=== PATIENT | male | born 1940 | race Caucasian/White ===

== ENCOUNTER 2024-03-14 11:03 | Inpatient (IN) | payer OTHER, MEDICARE, SELFPAY ==
[2024-03-14] VITALS (9 sets, daily range): BP systolic 144–164; BP diastolic 72–84; PULSE 58–78; RESP 16–22; TEMP 36.5–36.9; O2SAT 93–98; BMI 29.5
--- NOTE | ~2024-03-14 | XR_ITS ---
CLINICAL HISTORY: cough, dyspnea Single view of the chest. COMPARISON: None FINDINGS: Borderline cardiomegaly. No consolidation. Mild bronchial wall thickening. No pleural effusion or pneumothorax. Degenerative changes of the bilateral shoulders. [id number] spondylosis. No acute fracture identified. IMPRESSION: 1. No consolidation. 2. Mild bronchial wall thickening. This document has been electronically signed by: David Thrasher MD on 03/14/2024 13:16:43
--- NOTE | ~2024-03-14 | CT_ITS ---
CLINICAL HISTORY: new onset SHIRA CT abdomen and pelvis without IV contrast. COMPARISON: None FINDINGS: Minimal atelectasis along posterior left lower lobe. Aortic annular calcifications. Mitral annular calcifications. Hepatic steatosis. Noncontrast appearance of the liver, pancreas and adrenal glands are unremarkable. No right-sided hydronephrosis. Right renal cystic l lesions measuring up to 1.4 cm. No right renal or ureteral calculus. No left-sided hydronephrosis. Left renal cystic lesion measuring 1.6 cm. Nonobstructing 3 mm left renal calculus. No left hydroureter. No left ureteral calculus. Diminutive appendix. No bowel obstruction. No mesenteric or retroperitoneal lymphadenopathy. Moderate aortoiliac atherosclerotic vascular calcifications. Urinary bladder is unremarkable given degree of distention. Prostate is enlarged measuring up to 5.1 cm. Prostate calcifications present. Small fat containing umbilical hernia. Advanced multilevel spondylosis. No acute fracture identified. IMPRESSION: 1. No evidence of renal obstruction. No hydronephrosis or hydroureter bilaterally. No ureteral calculus. 2. Nonobstructing 3 mm left renal calculus. Bilateral renal cystic lesions measuring up to 1.6 cm on the left. 3. Prostatomegaly. This document has been electronically signed by: David Thrsaher MD on 03/14/2024 16:59:36
--- NOTE | 2024-03-14 11:20 | PC.NURSE ---
Pt. states that he does not want to change into hospital gown.
--- NOTE | 2024-03-14 12:19 | ED.GENADULT ---
HPI - General Adult General Chief complaint: General Medical Stated complaint: SOB COUGH Time Seen by Provider: 03/14/24 11:51 Source: patient, EMS and old records reviewed Mode of arrival: EMS Limitations: no limitations History of Present Illness ED Provider: FRANSISCA MARQUEZ narrative: 83 yo male with PMH of CVA - dyshpagia, aphasia, dysarthria, BPH, HTN, afib on eliquis [facility]/o URI symptoms x 10 days that will not get better. He has a runny nose, tired, productive cough. His home health aide was sick. He denies n/v, chest pain, sob. He has some slight diarrhea. No fevers that he is aware of. He thought he would get better but he hasn't. complaint: URI Onset (ago): day(s) (10) Location: head and chest Radiation: non-radiation Severity: mild Relieving factors: none Exacerbating factors: movement Associated symptoms: cough and malaise Treatments prior to arrival: none Related Data Allergies Allergy/AdvReac Type Severity Reaction Status Date / Time amlodipine Allergy Unknown Verified 03/14/24 12:37 diltiazem Allergy Unknown Verified 03/14/24 12:37 Penicillins Allergy Unknown Verified 03/14/24 12:36 spironolactone Allergy Unknown Verified 03/14/24 12:36 Review of Systems Review of Systems: Constitutional : No Fever, No Chills ENT/Mouth : No Hoarseness, No sore throat, No Rhinorrhea Eyes: No Redness, No Discharge, No Vision Changes Cardiovascular : No Chest Pain, positive SOB, No Edema Respiratory : positive Cough, pos Sputum, positive Wheezing, Gastrointestinal : No Nausea, No Vomiting, pos Diarrhea, No abdominal Pain Genitourinary : No Dysuria, No Hematuria Musculoskeletal : No joint pain, No Myalgias Skin : No rash Neuro : No Weakness, No Numbness, No Headache All other systems reviewed and are negative PMFSH Past Medical History Attestation statement: The following information was validated with the patient. Source: old records reviewed Medical History BPH (benign prostatic hyperplasia) Afib HTN (hypertension) Acute CVA (cerebrovascular accident) Social History Social History (Updated 03/14/24 @ 12:33 by Rain Kwok DO) Patient Tobacco Use Status: Former Tobacco user Smoked in Last 30 Days: No Use of substances other than those prescribed or required for medical reasons: No Advance Directives: No Advance Directives Information Provided: No Do you have a plan to hurt others: No Plan Physical Exam ED Vital Signs: Vital Signs - 24 hr 03/14/24 11:15 03/14/24 11:19 03/14/24 12:37 Temperature 98.1 F 98.1 F Pulse Rate 60 60 67 Respiratory Rate 20 20 18 Blood Pressure 157/79 H 157/79 H Pulse Oximetry 96 96 Oxygen Delivery Method Nasal Cannula Nasal Cannula 03/14/24 13:50 03/14/24 17:36 Temperature 98.4 F 97.7 F Pulse Rate 63 58 Respiratory Rate 18 16 Blood Pressure 144/73 H 159/82 H Pulse Oximetry 95 95 Oxygen Delivery Method Room Air Room Air BMI result Body Mass Index 29.5 Appearance: Alert. Oriented X3. No acute distress. Eyes: Pupils equal, round and reactive to light. ENT: Pharynx normal. Neck: Normal inspection. Neck supple. CVS: Normal heart rate and rhythm. Pulses normal. Respiratory: No respiratory distress. Breath sounds coarse and rhonchi throughout Abdomen: Soft and nontender. Skin: Skin warm and dry. Normal skin color. Normal skin turgor. Extremities: No lower extremity edema. No calf ttp Neuro: Oriented X 3. No motor deficit. No sensory deficit. mild aphasia, dysarthria, appears to have a hard time with swallowing - chronic Course Course Course Narrative: worsening Cr after fluids baseline 1.2 that we can find UA and CT scan ordered for post obstructive pathology Reevaluation(s) Reevaluation #1: at this time positive UTI infection suspected 439pm will dose with IV ceftriaxone Medications Administered Discontinued Medications Generic Name Dose Route Start Last Admin Trade Name Freq PRN Reason Stop Dose Admin Albuterol/Ipratropium 3 ml 03/14/24 12:31 03/14/24 12:37 Albuterol/Iprat 2.5/0.5mg 3 Ml Ampul.Neb INHALE 03/14/24 12:32 3 ml ONCE ONE Administration Ceftriaxone Sodium 1 gm 03/14/24 16:39 03/14/24 17:25 Ceftriaxone Sodium 1 Gm Vial IVPUSH 03/14/24 16:40 1 gm ONCE ONE Administration Magnesium Sulfate 2 gm in 50 mls @ 25 mls/hr 03/14/24 13:08 03/14/24 16:03 Magnesium Sulfate/H2o IV 03/14/24 15:07 Infused ONCE ONE Infusion Sodium Chloride 500 mls @ 500 mls/hr 03/14/24 13:08 03/14/24 15:33 Ns IV 03/14/24 14:07 Infused .Q1H ONE Infusion Potassium Chloride 20 meq 03/14/24 13:08 03/14/24 13:56 Potassium Chloride Er 20 Meq Tab.Er.Prt PO 03/14/24 13:09 20 meq ONCE ONE Administration Medical Decision Making Medical Decision Making MDM Narrative: 83 yo male with PMH of CVA - dyshpagia, aphasia, dysarthria, BPH, HTN, afib on eliquis here with c/o cough, uri symptoms, sputum that he is having a hard time clearing his sputum will obtain labs, cultures, viral panel, CXR, offer duoneb to help with airway and secretions. He could have viral syndrome, URI. Differential Diagnosis Differential Diagnoses: The differential diagnosis associated with the presentation includes URI, viral syndrome, Admission/Observation Consideration of admission/observation: Escalation of care including admission/observation considered worsening Cr in setting of post obstructive, + UTI increase in Cr will admit for observation repleted K and magnesium Consult Healthcare Provider Management of the patient was discussed with: Hospitalist (will admit) Lab Data [facility] Lab Attestation statement: I reviewed the patient's lab results. basic labs last Cr was 1.2 in 202103/14/24 12:35 03/14/24 15:13 Labs: Lab Results 03/14/24 03/14/24 03/14/24 Range/Units 12:35 12:51 15:13 WBC 9.6 (4.8-10.8) X10*3/uL RBC 4.49 L (4.60-5.80) X10*6/uL Hgb 14.5 (14.0-18.0) g/dl Hct 42.8 (42.0-52.0) % MCV 95.3 (80.0-98.0) fL MCH 32.3 (27.0-33.0) pg MCHC 33.9 (31.0-36.0) g/dl RDW 13.4 (11.0-16.0) % Plt Count 219 (160-400) X10*3/uL MPV 10.0 (9.4-12.4) fL Immature Gran % (Auto) 0.4 (0.0-0.4) % Neut % (Auto) 63.5 (45-73) % Lymph % (Auto) 24.1 (20-40) % [place] % (Auto) 9.4 (2-11) % Eos % (Auto) 2.0 (0-4) % Baso % (Auto) 0.6 (0-2) % Lymph # (Auto) 2.3 (1.2-4.9) X10*3/uL [place] # (Auto) 0.9 (0.1-1.2) X10*3/uL Eos # (Auto) 0.2 (0.0-0.4) X10*3/uL Baso # (Auto) 0.1 (0.0-0.2) X10*3/uL Abs Immat Gran (auto) 0.04 H (0.00-0.03) X10*3/uL Absolute Neuts (auto) 6.1 (2.0-8.3) x10*3/uL Absolute Nucleated RBC 0.000 (0.0-0.012) X10*3/uL Nucleated RBC % (auto) 0.0 (0.0-0.2) /100WBC Sodium 145 (135-145) mmol/L Potassium 3.1 L (3.3-5.1) mmol/L Chloride 109 H (96-108) mmol/L Carbon Dioxide 27 (22-29) mmol/L Anion Gap 12 (12-20) BUN 28 H (9-16) mg/dL Creatinine 1.56 H 1.73 H (0.5-1.4) mg/dL Estim Creat Clear Calc 41.3 37.2 Estimated GFR 43 38 Random Glucose 108 (60-115) mg/dL Lactic Acid 1.2 (0.5-2.0) mmol/L Calcium 8.5 (8.4-10.2) mg/dL Magnesium 1.5 L (1.6-2.6) mg/dL Total Bilirubin 0.6 (0.0-1.0) mg/dL AST 52 H (5-37) U/L ALT 35 (0-40) U/L Alkaline Phosphatase 80 (39-117) U/L Total Creatine Kinase 203 H (38-174) U/L B-Natriuretic Peptide 215 H (<100) pg/mL Total Protein 6.3 L (6.5-8.0) g/dL Albumin 3.4 L (3.5-5.0) g/dL Urine Color Urine Appearance Urine pH (5.0-9.0) Ur Specific [place] (1.005-1.025) Urine Protein (Neg-Trace) mg/dL Urine Glucose (UA) (Negative) mg/dL Urine Ketones (Negative) mg/dL Urine Blood (Negative) Urine Nitrite (Negative) Ur Leukocyte Esterase (Negative) Urine RBC (0-2) /HPF Urine WBC (0-5) /HPF Ur Squamous Epith Cells (0-2) /HPF Urine Bacteria (None Seen) Hyaline Casts (0-2) /LPF Influenza Type A (PCR) NEGATIVE (Negative) Influenza Type B (PCR) NEGATIVE (Negative) RSV RNA Qual (PCR) NEGATIVE (Negative) SARS-CoV-2 RNA (RT-PCR) NEGATIVE (Negative) 03/14/24 Range/Units 16:17 WBC (4.8-10.8) X10*3/uL RBC (4.60-5.80) X10*6/uL Hgb (14.0-18.0) g/dl Hct (42.0-52.0) % MCV (80.0-98.0) fL MCH (27.0-33.0) pg MCHC (31.0-36.0) g/dl RDW (11.0-16.0) % Plt Count (160-400) X10*3/uL MPV (9.4-12.4) fL Immature Gran % (Auto) (0.0-0.4) % Neut % (Auto) (45-73) % Lymph % (Auto) (20-40) % [place] % (Auto) (2-11) % Eos % (Auto) (0-4) % Baso % (Auto) (0-2) % Lymph # (Auto) (1.2-4.9) X10*3/uL [place] # (Auto) (0.1-1.2) X10*3/uL Eos # (Auto) (0.0-0.4) X10*3/uL Baso # (Auto) (0.0-0.2) X10*3/uL Abs Immat Gran (auto) (0.00-0.03) X10*3/uL Absolute Neuts (auto) (2.0-8.3) x10*3/uL Absolute Nucleated RBC (0.0-0.012) X10*3/uL Nucleated RBC % (auto) (0.0-0.2) /100WBC Sodium (135-145) mmol/L Potassium (3.3-5.1) mmol/L Chloride (96-108) mmol/L Carbon Dioxide (22-29) mmol/L Anion Gap (12-20) BUN (9-16) mg/dL Creatinine (0.5-1.4) mg/dL Estim Creat Clear Calc Estimated GFR Random Glucose (60-115) mg/dL Lactic Acid (0.5-2.0) mmol/L Calcium (8.4-10.2) mg/dL Magnesium (1.6-2.6) mg/dL Total Bilirubin (0.0-1.0) mg/dL AST (5-37) U/L ALT (0-40) U/L Alkaline Phosphatase (39-117) U/L Total Creatine Kinase (38-174) U/L B-Natriuretic Peptide (<100) pg/mL Total Protein (6.5-8.0) g/dL Albumin (3.5-5.0) g/dL Urine Color Yellow Urine Appearance Clear Urine pH 6.5 (5.0-9.0) Ur Specific [place] 1.015 (1.005-1.025) Urine Protein 30 (1+) H (Neg-Trace) mg/dL Urine Glucose (UA) Negative (Negative) mg/dL Urine Ketones Trace (Negative) mg/dL Urine Blood Trace H (Negative) Urine Nitrite Negative (Negative) Ur Leukocyte Esterase Moderate (2+) H (Negative) Urine RBC 0-2 (0-2) /HPF Urine WBC >50 H (0-5) /HPF Ur Squamous Epith Cells 0-2 (0-2) /HPF Urine Bacteria 1+ (None Seen) Hyaline Casts 0-2 (0-2) /LPF Influenza Type A (PCR) (Negative) Influenza Type B (PCR) (Negative) RSV RNA Qual (PCR) (Negative) SARS-CoV-2 RNA (RT-PCR) (Negative) Independent Interpretation I performed an independent interpretation of an: EKG, Plain X-Ray (no pneumonia) and CT Scan (enleraged bladder ) Interpretation: Rate: 58 Rhythm: sinus bradycardia with PVCs [place]: left Normal P waves. Normal CINTHYA. LBBB ST T wave : no JIL, inverted t waves I and aVL qTC: 475 prior studies: no prior The study has been interpreted contemporaneously by me. . Radiology Impression Discussion of test interpretation with radiology: I have reviewed the radiologist's reading. Independent Historian Clinical information obtained from an independent historian. 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
--- NOTE | 2024-03-14 12:35 | PC.NURSE ---
[facility] [place] [place]
[2024-03-14] MEDS: Albuterol/Iprat 2.5/0.5MG 3 ML AMPUL.NEB INHALE (12:37)
[2024-03-14 12:40] LABS: MANUAL DIFF FLAG NO
[2024-03-14 12:42] LABS: Basophils Absolute Auto 0.1 X10*3/uL (0.0-0.2); Basophils Percent Auto 0.6 % (0-2); Eosinophils Absolute Auto 0.2 X10*3/uL (0.0-0.4); Hematocrit 42.8 % (42.0-52.0); Hemoglobin 14.5 g/dl (14.0-18.0); Imm Gran Abs Auto 0.04 X10*3/uL (0.00-0.03); Imm Gran Pct Auto 0.4 % (0.0-0.4); Lymphocytes Absolute Auto 2.3 X10*3/uL (1.2-4.9); Lymphocytes Percent Auto 24.1 % (20-40); Mean Corpuscular HGB Conc 33.9 g/dl (31.0-36.0); Mean Corpuscular Hemoglobin 32.3 pg (27.0-33.0); Mean Corpuscular Volume 95.3 fL (80.0-98.0); Monocytes Absolute Auto 0.9 X10*3/uL (0.1-1.2); Monocytes Percent Auto 9.4 % (2-11); Neutrophils Absolute Auto 6.1 x10*3/uL (2.0-8.3); Neutrophils Percent Auto 63.5 % (45-73); Platelet Count 219 X10*3/uL (160-400); Red Blood Count 4.49 X10*6/uL (4.60-5.80); Red Cell Distribution Width 13.4 % (11.0-16.0); White Blood Count 9.6 X10*3/uL (4.8-10.8)
[2024-03-14 12:58] LABS: Alanine Aminotransferase 35 U/L (0-40); Albumin Level 3.4 g/dL (3.5-5.0); Alkaline Phosphatase 80 U/L (39-117); Anion Gap 12 (12-20); Aspartate Amino Transferase 52 U/L (5-37); Bilirubin Total 0.6 mg/dL (0.0-1.0); Blood Urea Nitrogen 28 mg/dL (9-16); Calcium 8.5 mg/dL (8.4-10.2); Carbon Dioxide 27 mmol/L (22-29); Chloride 109 mmol/L (96-108); Creatinine Clr Calc Pharmacy 41.3; Estimated Glomerular Filt Rate 43; Glucose Random 108 mg/dL (60-115); Magnesium 1.5 mg/dL (1.6-2.6); Potassium 3.1 mmol/L (3.3-5.1); Sodium 145 mmol/L (135-145); Total Protein 6.3 g/dL (6.5-8.0)
[2024-03-14 13:14] LABS: Lactic Acid 1.2 mmol/L (0.5-2.0)
[2024-03-14 13:19] LABS: Influenza A PCR NEGATIVE (Negative); Influenza B PCR NEGATIVE (Negative); Resp Syncy Virus RNA Qual PCR NEGATIVE (Negative); SARS COV2 PCR INHOUSE NEGATIVE (Negative)
[2024-03-14] MEDS: Magnesium Sulfate/H2O 2 GM/50 ML PIGGYBACK IV (13:56)
[2024-03-14] MEDS: Potassium Chloride ER 20 MEQ TAB.ER.PRT PO (13:56)
[2024-03-14] MEDS: 0.9 % Sodium Chloride 500 ML IV (13:56)
[2024-03-14 15:40] LABS: Creatinine Clr Calc Pharmacy 37.2; Estimated Glomerular Filt Rate 38
[2024-03-14 16:33] LABS: Appearance Urine Clear; Color Urine Yellow; Glucose Urine UA Negative (Negative); Leukocyte Esterase Urine Moderate (2+) (Negative); Nitrite Urine Negative (Negative); PH 6.5 (5.0-9.0); Specific Gravity - Urine 1.015 (1.005-1.025); UMIC TRIGGER UACC YES; Urine Blood Trace (Negative); Urine Ketones Trace mg/dL (Negative); Urine Protein 30 (1+) mg/dL (Neg-Trace)
[2024-03-14 16:36] LABS: Bacteria Urine 1+ (None Seen); Hyaline Casts Urine 0-2 /LPF (0-2); RBC Urine 0-2 /HPF (0-2); Squamous Epithelial Cell Urine 0-2 /HPF (0-2); UACC Culture Trigger YES; WBC Urine >50 /HPF (0-5)
--- NOTE | 2024-03-14 17:15 | ECG_ITS ---
Test Reason : HYPOMAGNESEMIA Blood Pressure : / mmHG Vent. Rate : 058 BPM Atrial Rate : 058 BPM P-R Int : 200 ms QRS Dur : 172 ms QT Int : 484 ms P-R-T Axes : 051 -47 132 degrees QTc Int : 475 ms Sinus bradycardia with marked sinus arrhythmia with occasional Premature ventricular complexes Left axis deviation Left bundle branch block Abnormal ECG No previous ECGs available Referred By: Rain Kwok Electronically Signed By:JUAN JOSEPH MD
[2024-03-14] MEDS: cefTRIAXone sodium 1 GM VIAL IVPUSH (17:25)
[2024-03-14 17:39] LABS: B Type Natriuretic Peptide 215 pg/mL (<100)
--- NOTE | 2024-03-14 18:33 | PHA.MEDREC ---
Pharmacy Consult ? Medication Reconciliation Pharmacy has completed the medication reconciliation, utilized list sent over from [facility].
--- NOTE | 2024-03-14 18:39 | P.HPHOSP_ITS ---
History of Present Illness Date of Service: 03/14/24 Chief Complaint: URI symptoms 3-year-old gentleman with past medical history of CVA with residual dysphagia, aphasia and dysarthria, BPH, hypertension, AFib on [facility] [place] [facility] due to symptoms of cough runny nose of greater than 10 days duration, he denies associated fever chills, no shortness of breath, no chest pain, no nausea, vomiting, abdominal pain, no diarrhea, no urinary symptoms of urgency, no frequency, no headache, no dizziness his home health aide was sick but since his symptoms were not improving he presented to emergency room, in ED patient noted to have hypokalemia, potassium 3.1, magnesium 1.5, creatinine 1.56 that got worsened with IV fluid to 1.73, chest x- ray showed mild bronchial wall thickening, RSV, influenza and COVID negative, due to persistent URI symptoms with acute kidney injury patient is being admitted to [facility] for further treatment and evaluation. Lives alone at home has [employer] services, ambulate without assisted device. Review of Systems 2 Review of Systems: General no headache no dizziness no fever chills. CVS no chest pain, no palpitation. Respiratory loose cough, no associated shortness of breath Gastrointestinal no nausea no vomiting, no abdominal pain no urgency, no frequency Musculoskeletal no pain All other system reviewed and are negative [facility] Medical History BPH (benign prostatic hyperplasia) Afib HTN (hypertension) Acute CVA (cerebrovascular accident) Social History (Updated 03/14/24 @ 12:33 by Rain Kwok DO) Household Members: None Housing: House Do you presently have visiting nurse or other home services: Yes ([facility] services and has [place] services for transportation) Patient Tobacco Use Status: Former Tobacco user Tobacco use type: Cigarette Cigarette Packs Per Day: 1 Cigarettes Per Day: 20.0 Smoked in Last 30 Days: No e-Cigarette/Vaping Use: Never Used Patient Interested in Nicotine Replacement: No Patient Given Instructions on How to Stop Smoking: No Second Hand Smoke Exposure: No Use of substances other than those prescribed or required for medical reasons: No Currently Displaying Signs/Symptoms of Drug Intoxication Withdrawal: No Any prior treatment program specific to substance use: No Have you been hit, kicked, punched, or otherwise hurt by someone within the past year? If so, by whom?: No Do you feel safe in your current relationship?: Yes Is there a partner from a previous relationship who is making you feel unsafe now?: No Are you made to feel afraid or neglected: No Advance Directives: No Advance Directives Information Provided: No Advance Directives on File: No Do you have a plan to hurt others: No Plan Recently lost weight without trying: No Eating poorly because of decreased appetite: No Nutrition Risks: On aspiration precautions Poor oral hygiene: No Meds Allergies Allergy/AdvReac Type Severity Reaction Status Date / Time amlodipine Allergy Unknown Verified 03/14/24 12:37 diltiazem Allergy Unknown Verified 03/14/24 12:37 Penicillins Allergy Unknown Verified 03/14/24 12:36 spironolactone Allergy Unknown Verified 03/14/24 12:36 Active Medications: Current Medications Acetaminophen (Acetaminophen 325 Mg Tablet) 650 mg PO Q6H PRN PRN Reason: Pain, Mild 1-3,fever,headache Calcium Carbonate (Calcium Carbonate 750 Mg Tab.Chew) 750 mg PO Q4H PRN PRN Reason: Heartburn Magnesium Hydroxide (Milk Of Magnesia 30 Ml Oral.Susp) 30 ml PO DAILY PRN PRN Reason: Constipation Melatonin (Melatonin 3 Mg Tablet) 6 mg PO BEDTIME PRN PRN Reason: Insomnia Ondansetron HCl (Ondansetron Hcl 4 Mg/2 Ml Vial) 4 mg IVPUSH Q8H PRN PRN Reason: Nausea and Vomiting Sodium Chloride (0.9 % Sodium Chloride Flush 3 Ml Syringe) 3 ml IVFLUSH [facility] Medications ?Medication ?Instructions ?Recorded ?Confirmed ?Last Taken ?Type allopurinol 100 mg tablet 100 mg PO DAILY 03/14/24 03/14/24 Unknown History apixaban 2.5 mg tablet (Eliquis) 2.5 mg PO BID 03/14/24 03/14/24 Unknown History chondroitin sulfate A sodium 400 400 mg PO DAILY 03/14/24 03/14/24 Unknown History mg capsule doxazosin 2 mg tablet 6 mg PO BID 03/14/24 03/14/24 Unknown History duloxetine 20 mg capsule,delayed 20 mg PO DAILY 03/14/24 03/14/24 Unknown History release finasteride 1 mg tablet 1 mg PO DAILY 03/14/24 03/14/24 Unknown History hydrochlorothiazide 12.5 mg capsule 12.5 mg PO DAILY 03/14/24 03/14/24 Unknown History multivitamin 1 tab PO DAILY 03/14/24 03/14/24 Unknown History simethicone 80 mg chewable tablet 80 mg PO DAILY 03/14/24 03/14/24 Unknown History thiamine HCl (vitamin B1) 100 mg 100 mg PO DAILY 03/14/24 03/14/24 Unknown History tablet vitamin E 268 mg (400 unit) capsule 268 mg PO DAILY 03/14/24 03/14/24 Unknown History Physical Exam 2 Vital Signs and Narrative: Vital Signs: Last Vital Signs Temp 97.7 F 03/14/24 17:36 Pulse 58 03/14/24 17:36 Resp 16 03/14/24 17:36 BP 159/82 H 03/14/24 17:36 Pulse Ox 95 03/14/24 17:36 O2 Del Method Room Air 03/14/24 17:36 Oxygen Flow Rate 2 03/14/24 11:15 BMI result Body Mass Index 29.5 Const: Other: General resting comfortably in no acute distress. Neck no JVD. CVS regular rate rhythm, Respiratory lungs clear to auscultation, no respiratory distress, no wheeze, no rhonchi. Gastrointestinal abdomen soft, non tender, bowel sounds audible, no guarding , no rigidity. Extremities no edema. Neuro dysarthria Skin no rash Psych appropriate affect Results Labs 03/14/24 12:35 03/15/24 05:18 Labs: Laboratory Results - last 24 hr 03/14/24 03/14/24 03/14/24 12:35 12:51 15:13 MCV 95.3 MCH 32.3 MCHC 33.9 RDW 13.4 Plt Count 219 MPV 10.0 Immature Gran % (Auto) 0.4 Neut % (Auto) 63.5 Lymph % (Auto) 24.1 [place] % (Auto) 9.4 Eos % (Auto) 2.0 Baso % (Auto) 0.6 Lymph # (Auto) 2.3 [place] # (Auto) 0.9 Eos # (Auto) 0.2 Baso # (Auto) 0.1 Abs Immat Gran (auto) 0.04 H Absolute Neuts (auto) 6.1 Absolute Nucleated RBC 0.000 Nucleated RBC % (auto) 0.0 Anion Gap 12 Estim Creat Clear Calc 41.3 37.2 Estimated GFR 43 38 Random Glucose 108 Lactic Acid 1.2 Calcium 8.5 Magnesium 1.5 L Total Bilirubin 0.6 AST 52 H ALT 35 Alkaline Phosphatase 80 Total Creatine Kinase 203 H B-Natriuretic Peptide 215 H Total Protein 6.3 L Albumin 3.4 L Urine Color Urine Appearance Urine pH Ur Specific [place] Urine Protein Urine Glucose (UA) Urine Ketones Urine Blood Urine Nitrite Ur Leukocyte Esterase Urine RBC Urine WBC Ur Squamous Epith Cells Urine Bacteria Hyaline Casts Influenza Type A (PCR) NEGATIVE Influenza Type B (PCR) NEGATIVE RSV RNA Qual (PCR) NEGATIVE SARS-CoV-2 RNA (RT-PCR) NEGATIVE 03/14/24 16:17 MCV MCH MCHC RDW Plt Count MPV Immature Gran % (Auto) Neut % (Auto) Lymph % (Auto) [place] % (Auto) Eos % (Auto) Baso % (Auto) Lymph # (Auto) [place] # (Auto) Eos # (Auto) Baso # (Auto) Abs Immat Gran (auto) Absolute Neuts (auto) Absolute Nucleated RBC Nucleated RBC % (auto) Anion Gap Estim Creat Clear Calc Estimated GFR Random Glucose Lactic Acid Calcium Magnesium Total Bilirubin AST ALT Alkaline Phosphatase Total Creatine Kinase B-Natriuretic Peptide Total Protein Albumin Urine Color Yellow Urine Appearance Clear Urine pH 6.5 Ur Specific [place] 1.015 Urine Protein 30 (1+) H Urine Glucose (UA) Negative Urine Ketones Trace Urine Blood Trace H Urine Nitrite Negative Ur Leukocyte Esterase Moderate (2+) H Urine RBC 0-2 Urine WBC >50 H Ur Squamous Epith Cells 0-2 Urine Bacteria 1+ Hyaline Casts 0-2 Influenza Type A (PCR) Influenza Type B (PCR) RSV RNA Qual (PCR) SARS-CoV-2 RNA (RT-PCR) Assessment and Plan (1) Acute UTI: Status: Acute (2) SHIRA (acute kidney injury): Status: Acute (3) Acute bronchitis: Qualifiers: Bronchitis organism: unspecified organism Qualified Code(s): J20.9 - Acute bronchitis, unspecified Status: Acute (4) Hypomagnesemia: Status: Acute (5) Acute hypokalemia: Status: Acute Plan 83 yo male with PMH of CVA - dyshpagia, aphasia, dysarthria, BPH, HTN, afib on eliquis here with c/o cough, uri symptoms, difficulty clear phlegm of greater than 10 days duration diagnosed to have hypokalemia, hypomagnesemia and SHIRA and possible UTI. Acute bronchitis/ URI Afebrile, normal WBC count, chest x-ray showed mild bronchial wall thickening Will obtain respiratory viral pathogen Supportive care with cough medications/analgesics Speech therapy eval question aspiration Acute kidney injury Worsening creatinine despite IV hydration, will hold hydrochlorothiazide CT abdomen and pelvis showed no obstruction, showed prostatomegaly Will obtain baseline labs Acute UTI treat with IV ceftriaxone follow urine and blood culture. Acute Hypo magnesemia Will replete and follow labs Acute hypokalemia likely due to hydrochlorothiazide, will replete follow labs and hold hydrochlorothiazide. Hypertension follow BP, hydrochlorothiazide on hold as above History of CVA with residual dysarthria and dysphagia persistent cough question related to dysphagia will obtain speech therapy evaluation. PAF EKG showed left bundle branch block sinus bradycardia with occasional PVCs Continue Eliquis not on rate control medication BPH continue doxazosin DVT prophylaxis with Eliquis Full code In my clinical judgment patient requires 2 night inpatient hospitalization for treatment of SHRIA and electrolyte abnormalities requiring close electrolyte monitoring and treatment of UTI/URI and dysphagia. Quality Stroke Does the patient have a stroke diagnosis?: No VTE Prior VTE?: No VTE Risk Level:: Medical - moderate - high VTE Device Contraindication: N/A - Device Ordered VTE Drug Contraindication: N/A - Med Ordered
[2024-03-14] MEDS: Doxazosin Mesylate 2 MG TABLET 6 MG PO (21:01)
[2024-03-14] MEDS: Apixaban 2.5 MG TABLET PO (21:01)
--- NOTE | 2024-03-14 21:07 | PC.NURSE ---
pt repositioned out of bed, completed by change, medicated per may, pt takes medication in apple sauces, pt able to communicated his needs.
[2024-03-15] VITALS (7 sets, daily range): BP systolic 113–170; BP diastolic 72–82; PULSE 51–158; RESP 16–20; TEMP 36.3–37; O2SAT 93–96
--- NOTE | 2024-03-15 | ECG_ITS ---
Test Reason : tachycardia Blood Pressure : / mmHG Vent. Rate : 154 BPM Atrial Rate : 000 BPM P-R Int : 000 ms QRS Dur : 150 ms QT Int : 342 ms P-R-T Axes : 000 100 -56 degrees QTc Int : 547 ms Wide QRS tachycardia Possible Supraventricular tachycardia with aberrancy Rightward axis Non-specific intra-ventricular conduction block Abnormal ECG When compared with ECG of 14-MAR-2024 17:27, Wide QRS tachycardia has replaced Sinus rhythm Vent. rate has increased BY 96 BPM Referred By: Donnell Shearer Electronically Signed By:JUAN JOSEPH MD
[2024-03-15] MEDS: 0.9 % Sodium Chloride Flush 3 ML SYRINGE IVFLUSH ×4 (03:17→21:53)
[2024-03-15 06:21] LABS: Anion Gap 11 (12-20); Blood Urea Nitrogen 29 mg/dL (9-16); Calcium 8.5 mg/dL (8.4-10.2); Carbon Dioxide 27 mmol/L (22-29); Chloride 109 mmol/L (96-108); Creatinine Clr Calc Pharmacy 46.1; Estimated Glomerular Filt Rate 48; Glucose Random 94 mg/dL (60-115); Sodium 144 mmol/L (135-145)
[2024-03-15] MEDS: Doxazosin Mesylate 2 MG TABLET 6 MG PO ×2 (08:05→21:52)
[2024-03-15] MEDS: Potassium Chloride Packet 20 MEQ PACKET 40 MEQ PO (08:05)
[2024-03-15] MEDS: DULoxetine HCl 20 MG CAPSULE.DR PO (08:06)
[2024-03-15] MEDS: Apixaban 2.5 MG TABLET PO ×2 (08:06→21:53)
[2024-03-15] MEDS: allopurinoL 100 MG TABLET PO (08:06)
--- NOTE | 2024-03-15 08:28 | PC.NURSE ---
Patient refused camera in room,encouraged to call for help,bed alarm on ,call jean inmignon alaniz
[2024-03-15] MEDS: Acetaminophen 325 MG TABLET 650 MG PO (08:30)
[2024-03-15 10:13] LABS: Adenovirus PCR Not Detected (Not Detect.); Bordetella parapertussis PCR Not Detected (Not Detect.); Bordetella pertussis PCR Not Detected (Not Detect.); Chlamydia pneumoniae PCR Not Detected (Not Detect.); Coronavirus 229E PCR Not Detected (Not Detect.); Coronavirus HKU1 PCR Not Detected (Not Detect.); Coronavirus NL63 PCR Not Detected (Not Detect.); Coronavirus OC43 PCR Detected (Not Detect.); Human metapneumovirus PCR Not Detected (Not Detect.); Influenza A PCR Not Detected (Not Detect.); Influenza B PCR Not Detected (Not Detect.); Mycoplasma pneumoniae PCR Not Detected (Not Detect.); Parainfluenza 1 PCR Not Detected (Not Detect.); Parainfluenza 2 PCR Not Detected (Not Detect.); Parainfluenza 3 PCR Not Detected (Not Detect.); Parainfluenza 4 PCR Not Detected (Not Detect.); RSV PCR Not Detected (Not Detect.); Rhino/Enterovirus PCR Not Detected (Not Detect.)
[2024-03-15 10:28] LABS: SARS-CoV-2 PCR Not Detected (Not Detect.)
--- NOTE | 2024-03-15 11:55 | PC.NURSE ---
Shepherd d/c DTV#1 at 1800,MAURICE [place]amanca aware,patient tolerated it well
--- NOTE | 2024-03-15 13:31 | MHC.CM.PN ---
CM ATTEMPTED TO MEET WITH PT WHO WAS OFF UNIT CM TO REVISIT
--- NOTE | 2024-03-15 14:05 | PC.NURSE ---
Patient c/o feeling dizzy while sitting in the chair,assisted back to bed,BP 167/75 pulse 65,sat 96% on RA ,Dr. Agustin notified
--- NOTE | 2024-03-15 14:06 | MHC.SL.SWA ---
Speech Pathologist Impression: Risk of Aspiration Due to: Neurological Condition Dysphasia Diet Status: Liquid Consistency and Strategies for Safe Swallow: Liquid Intake Recommendation: Thin Liquid Intake Strategies: Small Sips Solid Food Consistency: Dietary Recommendations: Chopped/Advanced (NDD3) Additional Modifications to Solid Foods: Oral Medication Intake: Whole with Liquid Please contact the pharmacy regarding appropriate crushable or liquid drug formulations that are available whenever modified delivery is recommended. Compensatory Strategies and Precautions to be Taken for Safe Swallow: Sitting Upright (90 deg) Small Bites and Sips Alternate Liquids/Solids Rate of Ingestion Change Oral Check Supervision While Eating and Drinking for Safe Swallow: Intermittent Supervision Foods to Avoid: Swallowing Recommended Treatments: Compens. Strategy Educat. Recommendation for Speech: Inpatient Speech Therapy Comment: DYNAMITE SHOOTER recommend continue Chopped/Advanced Solids (NDD3) and Thin Liquids. Medications Whole with Liquids. Intermittent Supervision. DYNAMITE SHOOTER to f/u x1. Timeline to reassess: PRN Diabetes Education Coordinator Clinican/Clinical Fellow: No Supervisory Statement: I have reviewed and agree with the student/clinical fellow's documentation: N/A Speech Language Pathologist: Leonardo Stearns M.A., CCC-DYNAMITE SHOOTER
--- NOTE | 2024-03-15 14:37 | P.PNIM_ITS ---
Subjective Subjective Date of Service: 03/15/24 Interval History: [place] dizzy while sitting on chair, denies urinary symptoms of urgency or frequency, wishes Shepherd catheter to be discontinued Tolerating diet, no worsening cough no nausea vomiting abdominal pain or diarrhea. No acute events overnight. Review of Systems All other system reviewed and are negative Physical Exam 2 Vital Signs: Vital Signs: Last Vital Signs Temp 98.4 F 03/15/24 13:55 Pulse 65 03/15/24 13:55 Resp 20 03/15/24 13:55 BP 167/75 H 03/15/24 13:55 Pulse Ox 96 03/15/24 13:55 O2 Del Method Room Air 03/15/24 13:55 Oxygen Flow Rate 2 03/14/24 11:15 BMI result Body Mass Index 30.0 Const: Other: General resting comfortably in no acute distress. Neck no JVD. CVS regular rate rhythm, Respiratory lungs clear to auscultation, no respiratory distress, no wheeze, no rhonchi. Gastrointestinal abdomen soft, non tender, bowel sounds audible, no guarding , no rigidity. Extremities no edema. Neuro dysarthria at baseline Skin no rash Psych appropriate affect Objective Data Active Medications Acetaminophen (Acetaminophen 325 Mg Tablet) 650 mg PO Q6H PRN PRN Reason: Pain, Mild 1-3,fever,headache Last Admin: 03/15/24 08:30 Dose: 650 mg Documented By: DUKE Allopurinol (Allopurinol 100 Mg Tablet) 100 mg PO DAILY [facility] Last Admin: 03/15/24 08:06 Dose: 100 mg Documented By: DUKE Apixaban (Apixaban 2.5 Mg Tablet) 2.5 mg PO BID [facility] Last Admin: 03/15/24 08:06 Dose: 2.5 mg Documented By: DUKE Calcium Carbonate (Calcium Carbonate 750 Mg Tab.Chew) 750 mg PO Q4H PRN PRN Reason: Heartburn Doxazosin Mesylate (Doxazosin Mesylate 2 Mg Tablet) 6 mg PO BID [facility]; Protocol Last Admin: 03/15/24 08:05 Dose: 6 mg Documented By: DUKE Duloxetine HCl (Duloxetine Hcl 20 Mg Meron.) 20 mg PO DAILY [facility] Last Admin: 03/15/24 08:06 Dose: 20 mg Documented By: DUKE Guaifenesin/Dextromethorphan (Guaifenesin Dm 200/20/10 Ml 10 Ml Syrup) 10 ml PO Q6H PRN PRN Reason: Cough Magnesium Hydroxide (Milk Of Magnesia 30 Ml Oral.Susp) 30 ml PO DAILY PRN PRN Reason: Constipation Melatonin (Melatonin 3 Mg Tablet) 6 mg PO BEDTIME PRN PRN Reason: Insomnia Non-Formulary Medication (Finasteride) 1 mg PO DAILY [facility] Ondansetron HCl (Ondansetron Hcl 4 Mg/2 Ml Vial) 4 mg IVPUSH Q8H PRN PRN Reason: Nausea and Vomiting Simethicone (Simethicone 80 Mg Tab.Chew) 80 mg PO DAILY [facility] Last Admin: 03/15/24 08:18 Dose: Not Given Documented By: DUKE Non-Admin Reason: Patient Refused Sodium Chloride (0.9 % Sodium Chloride Flush 3 Ml Syringe) 3 ml IVFLUSH QSHIFT [facility] Last Admin: 03/15/24 08:09 Dose: 3 ml Documented By: DUKE Labs 03/14/24 12:35 03/15/24 05:18 Labs: Laboratory Results - last 24 hr 03/14/24 03/14/24 03/14/24 12:35 15:13 16:17 Anion Gap Estim Creat Clear Calc 37.2 Estimated GFR 38 Random Glucose Calcium Magnesium Total Creatine Kinase 203 H B-Natriuretic Peptide 215 H Urine Color Yellow Urine Appearance Clear Urine pH 6.5 Ur Specific [place] 1.015 Urine Protein 30 (1+) H Urine Glucose (UA) Negative Urine Ketones Trace Urine Blood Trace H Urine Nitrite Negative Ur Leukocyte Esterase Moderate (2+) H Urine RBC 0-2 Urine WBC >50 H Ur Squamous Epith Cells 0-2 Urine Bacteria 1+ Hyaline Casts 0-2 Respiratory Panel [place] Adenovirus (Rapid PCR) B.pert (TEM-PCR) B.parapertussis DNA PCR C. pneumoniae DNA (PCR) Coronavirus OC43 (PCR) Coronavirus HKU1 (PCR) Coronavirus 229E (PCR) Coronavirus NL63 (PCR) Human Metapneumovir PCR Influenza A (RT-PCR) Influenza B (RT-PCR) M. pneumoniae (PCR) Parainfluenza 1 (PCR) Parainfluenza 2 (PCR) Parainfluenza 3 (PCR) Parainfluenza 4 (PCR) RSV (PCR) Entero/Rhino (PCR) SARS-CoV-2 RNA (RT-PCR) 03/14/24 03/15/24 03/15/24 22:22 05:18 08:14 Anion Gap 11 L Estim Creat Clear Calc 46.1 Estimated GFR 48 Random Glucose 94 Calcium 8.5 Magnesium 2.0 Total Creatine Kinase B-Natriuretic Peptide Urine Color Urine Appearance Urine pH Ur Specific [place] Urine Protein Urine Glucose (UA) Urine Ketones Urine Blood Urine Nitrite Ur Leukocyte Esterase Urine RBC Urine WBC Ur Squamous Epith Cells Urine Bacteria Hyaline Casts Respiratory Panel [place] Cancelled See Note Adenovirus (Rapid PCR) Cancelled Not Detected B.pert (TEM-PCR) Cancelled Not Detected B.parapertussis DNA PCR Cancelled Not Detected C. pneumoniae DNA (PCR) Cancelled Not Detected Coronavirus OC43 (PCR) Cancelled Detected A Coronavirus HKU1 (PCR) Cancelled Not Detected Coronavirus 229E (PCR) Cancelled Not Detected Coronavirus NL63 (PCR) Cancelled Not Detected Human Metapneumovir PCR Cancelled Not Detected Influenza A (RT-PCR) Cancelled Not Detected Influenza B (RT-PCR) Cancelled Not Detected M. pneumoniae (PCR) Cancelled Not Detected Parainfluenza 1 (PCR) Cancelled Not Detected Parainfluenza 2 (PCR) Cancelled Not Detected Parainfluenza 3 (PCR) Cancelled Not Detected Parainfluenza 4 (PCR) Cancelled Not Detected RSV (PCR) Cancelled Not Detected Entero/Rhino (PCR) Cancelled Not Detected SARS-CoV-2 RNA (RT-PCR) Cancelled Not Detected Microbiology Microbiology Results: Microbiology 03/14/24 16:38 Urine Culture - Preliminary Urine clean catch - Clean Catch Midstream Proteus species Assessment and Plan (1) Acute UTI: Status: Acute (2) SHIRA (acute kidney injury): Status: Acute (3) Acute bronchitis: Status: Acute (4) Hypomagnesemia: Status: Acute (5) Acute hypokalemia: Status: Acute Plan 83 yo male with PMH of CVA - dyshpagia, aphasia, dysarthria, BPH, HTN, afib on eliquis here with c/o cough, uri symptoms, difficulty clear phlegm of greater than 10 days duration diagnosed to have hypokalemia, hypomagnesemia and SHIRA and possible UTI. Acute bronchitis/ URI Afebrile, normal WBC count, chest x-ray showed mild bronchial wall thickening respiratory viral pathogen positive for coronavirus Continue Supportive care with cough medications/analgesics Speech therapy recommends to continue chopped/advanced solids and thin liquids, medications whole with liquids intermittent supervisions Acute kidney injury Resolved with IV fluid obtain baseline labs from primary care physician last creatinine 1.[address] abdomen and pelvis showed no obstruction, showed prostatomegaly Will DC Shepherd catheter Acute UTI urine culture growing Proteus continue IV ceftriaxone follow final urine and blood cultures Acute Hypo magnesemia Repleted Acute hypokalemia likely due to hydrochlorothiazide, potassium remains low at 3 will replete and follow labs, hold hydrochlorothiazide. History of CVA with residual dysarthria and dysphagia Continue modified diet PAF EKG showed left bundle branch block sinus bradycardia with occasional PVCs Continue Eliquis not on rate control medication BPH continue doxazosin Hypertension elevated blood pressure will add Norvasc since hydrochlorothiazide discontinued. DVT prophylaxis with Eliquis Full code In my clinical judgment patient requires 2 night inpatient hospitalization for treatment of SHIRA and electrolyte abnormalities requiring close electrolyte monitoring and treatment of UTI/URI and dysphagia. Quality Stroke Does the patient have a stroke diagnosis?: No VTE Prior VTE?: No VTE Risk Level:: Medical - moderate - high VTE Device Contraindication: N/A - Device Ordered VTE Drug Contraindication: N/A - Med Ordered
[2024-03-15] MEDS: cefTRIAXone sodium 1 GM VIAL IVPUSH (16:15)
--- NOTE | 2024-03-15 23:41 | PM.EVENT ---
Event Note Date of Service: 03/15/24 Event Note: Nurse reported HR in the 150s. Obtained EKG. BP ok. HR improved to 70s without intervention. Will add cardiac monitoring Time Spent With Patient Time: Total time managing care of this patient today ____ minutes.
--- NOTE | 2024-03-15 23:45 | PC.NURSE ---
Pt complaining he was in A.fib, HX of A.fib & CVA. Pt's vital signs were taken BP 113/82, HR 158, and O2 96% RA. MD Shearer was notified of the situation. EKG and cardiac monitoring was ordered. Pt's HR improved to 70s without any interventions. Transfer ordered for Med/Teley. This RN waiting to give report to Med/Teley RN. Pt on continuous cardiac monitoring. Will continue to monitor.
[2024-03-16] VITALS (8 sets, daily range): BP systolic 130–180; BP diastolic 70–89; PULSE 54–67; RESP 16–20; TEMP 36.3–36.9; O2SAT 93–95
--- NOTE | 2024-03-16 07:00 | CA_ITS ---
Transthoracic Echocardiogram Patient (Last, First, Middle): Kang Wilder, Gender: Male Date of : 1940 Age: 83 Procedure Date: 03/16/2024 Procedure Type: Transthoracic [place] [facility] [place]: 175.26 cm Weight: 92.08 kg BSA: 2.08 m2 Heart Rate: bpm BP: 130 / 70 mmHg Ip Paralegal: Referring MD: Rachael Agustin MD Commander Police Reserves: Moises Foley MD Symptoms: svt/afib Study Quality: Technically Difficult due to pt position ECG Rhythm: Sinus with extra beats Conclusions: - 1. Low normal LV ejection fraction 50-55% with moderate LVH with grade 1 diastolic dysfunction 2. Mild aortic stenosis 3. Normal calculated RV systolic pressure Findings Procedure Information Contrast agent, definity, is being given per protocol without apparent complications. Left Ventricle Normal left ventricular cavity size. There is moderately increased left ventricular wall thickness. The left ventricular systolic function is low normal. The visually estimated ejection fraction is between 50-55%. There is paradoxical septal motion consistent with a left bundle branch block. Spectral Doppler is indicative of an impaired relaxation filling pattern. E/E prime ratio is <8, consistent with normal filling pressures. Evidence suggests grade I (mild) diastolic dysfunction. Right Ventricle The right ventricle was not well visualized. Atria The left atrium was not well visualized. Interatrial shunt cannot be excluded. The right atrium was not well visualized. Aortic Valve There is mild calcification of the aortic valve. There is mild thickening of the aortic valve. There is mild aortic valve stenosis. There is no aortic valve regurgitation. Mitral Valve There is mild anterior mitral leaflet thickening. There is mild mitral annular calcification. There is no mitral valve regurgitation. There is no mitral valve stenosis. Pulmonic Valve The pulmonic valve was not well visualized. Tricuspid Valve The tricuspid valve was not well visualized. Normal right atrial pressure. There is no evidence of pulmonary hypertension. Great Vessels The aorta was not well visualized. The pulmonary artery was not well visualized. Venous The inferior vena cava is normal in size. Pericardium/Pleural The pericardium was not well visualized. Prior Study Comparison No prior study available for comparison. Measurements 2D Linear Measurements IVSd: 1.54 0.6-0.9/0.6-1.0 cm LVIDd: 4.15 3.9-5.3/4.2-5.9 cm LVIDd Index: 2.00 2.4-3.2/2.2-3.1 cm/m2 LVIDs: 3.08 2.0-3.6 cm LVPWd: 1.46 0.7-1.1 cm Ao Root: 3.60 2.1-3.5 cm LA Diam: 3.20 2.7-3.8/3.0-4.0 cm LAIDs Index: 1.54 1.5-2.3 cm/m2 LV Mass: 305.81 67-162/88-224 g LV Mass Index: 147.03 43-95/49-115 g/m2 LVOT Diam: 2.20 3.0+(-)1.3 cm 2D Systolic Function EF 4C: 46.00 >55% EF 2C: 56.90 >55% EF BiP: 53.80 >55% Mitral Valve MV Pk E: 0.42 MV PK A: 0.65 MV Decel Time: 315.00 E/A: 0.70 E'Lateral: 6.96 E'Medial: 4.79 E/E' Med: 8.90 E/E' Lat: 6.10 PHT: 92.00 MVA PHT: 2.39 Decel [place]: 1.35 Aortic Valve AoV Pk Jens: 2.09 AoV Mn Jens: 1.40 AoV VTI: 0.44 AoV Pk Grad: 17.00 Aov Mn Grad: 9.00 CRISSY Cont.VTI: 2.02 LVOT LVOT Pk Jens: 1.03 LVOT Mn Jens: 0.70 LVOT VTI: 0.23 LVOT Pk Grad: 4.00 LVOT Mn Grad: 2.00 LVOT Diam: 2.20 LVOT Area: 3.80 Diastolic Function MV Pk E: 0.42 MV Pk A: 0.65 E/A: 0.70 E'Medial: 4.79 E/E' Med: 8.90 E' Laterial: 6.96 E/E' Lat: 6.10 Right Ventricle TAPSE (mm): 22.00 TVS' Jens: 11.00 Tricuspid Valve TR Pk Jens: 2.07 TR Pk Grad: 17.00 RA Press: 3.00 RVSP: 20.00 Great Vessels Aorta Ao Root-2D: 3.60 2.0-3.7 cm Pulmonary Valve PV Pk Jens: 1.11 Peak PV Grad: 5.00 Updated in Other Vendor System with Status of Final Moises Foley MD electronically signed on 03/17/2024 1:54:30 PM with status of Final
--- NOTE | 2024-03-16 08:21 | MHC.CM.PN ---
CM met with Patient at bedside and addressed IMM with him verbally (on contact precautions); original was given to Patient and a copy has been placed on the chart. Patient lives alone in a house, used no DME to assist with mobility, and has a [facility] DIRECTOR M-F for 2 hours/visit. Home/resume said services is the goal and CM has initiated and will follow for dc planning. PCP is Dr. Matthias Rogel/LOC in [place] and Friend/[facility] will transport to home. Sister/Elissa is the HCP.
[2024-03-16] MEDS: Doxazosin Mesylate 2 MG TABLET 6 MG PO ×2 (09:26→21:30)
[2024-03-16] MEDS: 0.9 % Sodium Chloride Flush 3 ML SYRINGE IVFLUSH ×3 (09:26→21:31)
[2024-03-16] MEDS: DULoxetine HCl 20 MG CAPSULE.DR PO (09:26)
[2024-03-16] MEDS: allopurinoL 100 MG TABLET PO (09:26)
[2024-03-16] MEDS: Apixaban 2.5 MG TABLET PO ×2 (09:27→21:30)
[2024-03-16 12:20] LABS: Anion Gap 8 (12-20); Blood Urea Nitrogen 19 mg/dL (9-16); Calcium 8.3 mg/dL (8.4-10.2); Carbon Dioxide 27 mmol/L (22-29); Chloride 111 mmol/L (96-108); Creatinine Clr Calc Pharmacy 48.1; Estimated Glomerular Filt Rate 51; Glucose Random 121 mg/dL (60-115); Potassium 3.6 mmol/L (3.3-5.1); Sodium 142 mmol/L (135-145)
--- NOTE | 2024-03-16 12:31 | MHC.SL.DTX ---
Dysphagia Diet modifications: Last documented Solid diet consistencies: Chopped/Advanced (NDD3) Last documented Liquid consistency: Thin Changes made to current diet?: No Liquid Consistency and Strategies: Liquid Intake Recommendation: Thin Compensatory Strategies for Safe Swallow: Small Sips Compensatory Strategies for Safe Swallow(b): Sitting Upright (90 deg) Small Bites and Sips Alternate Liquids/Solids Rate of Ingestion Change Oral Check Solid Food Consistency: Dietary Recommendations: Chopped/Advanced (NDD3) Oral Medication Intake: Whole with Puree Strategies and Precautions to be Taken for Safe Swallow: Sitting Upright (90 deg) Small Bites and Sips Alternate Liquids/Solids Rate of Ingestion Change Oral Check Supervision While Eating and/Drinking: Intermittent Supervision Swallowing Recommended Treatments: Compens. Strategy Educat. Level of Impact on: Daily activities: Mild Interpersonal interactions: Education: None Employment: None Community: Mild Prognosis for Improvement: Good Recommendation for Speech: Inpatient Speech Therapy Timeline to reassess: PRN Treatment: Pt seen for follow-up dysphagia treatment. He has some complaints about the food offerings, but they are taste related not texture related. He tolerated Thin Liquids, self administered via Straw and Cup Sip with no overt s/s of aspiration. He tolerated Puree Solid and Chopped/Advanced Solid (NDD3) with timely oral preparation and clearance with no overt s/s of aspiration. He explains as he did yesterday that this is his baseline diet. As Pt is not requesting upgrade and is at his functional baseline, skilled Speech Therapy no longer indicated. Please re-refer if status changes. Measurement Psychologist Clinican/Clinical Fellow: No Supervisory Statement: I have reviewed and agree with the student/clinical fellow's documentation: N/A Speech Language Pathologist: Leonardo Stearns M.A., CCC-SHOE SEWING MACHINE OPERATOR AND TENDER
--- NOTE | 2024-03-16 13:42 | PM.CNCAR ---
History of Present Illness History of Present Illness Date of Service: 03/16/24 Requesting physician: Rachael Agustin Consult reason: other (Tachycardia) Chief complaint: SHIRA/electrolyte abnormalities Narrative: I was consulted to see Kang in cardiology consultation today for development of tachycardia yesterday with symptoms. Subsequently was transferred to telemetry floor yesterday. He was prior history of paroxysmal atrial fibrillation status post stroke and currently on long-term oral anticoagulation therapy, of rate lowering medication due to prior sinus bradycardia and suggestion of sick sinus syndrome. Patient also history of hypertension, admitted with UTI electrolyte abnormalities and acute kidney injury. He has been gradually getting better from that perspective with Proteus in the blood stream. He has also tested positive for COVID. Last night he was in usual state of health in the room and then suddenly after talking with nurse developed sudden-onset tachycardia and started feeling lightheaded and got diaphoretic. Telemetry was hooked up to him and was noted to be in wide complex tachycardia which appears to be SVT with aberrancy. He was baseline left bundle-branch block. He subsequently was brought to [facility] and converted to sinus rhythm and has remained more or less than sinus bradycardia with a heart rate in the 40s at rest. He denies any lightheadedness at rest. With walking his heart rate improves to 64. He is saying that over the last few months he has been getting these episodes very frequently. He was very symptomatic with the same. History is somewhat difficult to obtain from him due to his dysarthria Review of Systems Constitutional: Constitutional: Reports no additional constitutional complaints Cardiovascular: Cardiovascular: Denies chest pain, Reports lightheadedness, Denies Loss of Consciousness, Reports palpitations and Denies dyspnea Respiratory: Respiratory: Reports no additional respiratory complaints and Denies dyspnea Gastrointestinal: Gastrointestinal: Reports no additional gastrointestinal complaints Musculoskeletal: Musculoskeletal: Reports no additional musculoskeletal complaints Neurologic: Reports system reviewed and no additional complaints, except as documented Endocrine: Endocrine: Reports no additional endocrine complaints and Reports palpitations PMFSH Past Medical History Medical History BPH (benign prostatic hyperplasia) Afib HTN (hypertension) Acute CVA (cerebrovascular accident) Social History Social History (Updated 03/14/24 @ 12:33 by Rain Kwok DO) Household Members: None Housing: House Do you presently have visiting nurse or other home services: Yes ([facility] and has [place] services for transportation) Patient Tobacco Use Status: Former Tobacco user Tobacco use type: Cigarette Cigarette Packs Per Day: 1 Cigarettes Per Day: 20.0 Smoked in Last 30 Days: No e-Cigarette/Vaping Use: Never Used Patient Interested in Nicotine Replacement: No Patient Given Instructions on How to Stop Smoking: No Second Hand Smoke Exposure: No Use of substances other than those prescribed or required for medical reasons: No Currently Displaying Signs/Symptoms of Drug Intoxication Withdrawal: No Any prior treatment program specific to substance use: No Have you been hit, kicked, punched, or otherwise hurt by someone within the past year? If so, by whom?: No Do you feel safe in your current relationship?: Yes Is there a partner from a previous relationship who is making you feel unsafe now?: No Are you made to feel afraid or neglected: No Advance Directives: No Advance Directives Information Provided: No Advance Directives on File: No Do you have a plan to hurt others: No Plan Recently lost weight without trying: No Eating poorly because of decreased appetite: No Nutrition Risks: On aspiration precautions Poor oral hygiene: No service: Yes Meds Allergies Allergy/AdvReac Type Severity Reaction Status Date / Time amlodipine Allergy Unknown Verified 03/14/24 12:37 diltiazem Allergy Unknown Verified 03/14/24 12:37 Penicillins Allergy Unknown Verified 03/14/24 12:36 spironolactone Allergy Unknown Verified 03/14/24 12:36 Active Medications: Current Medications Acetaminophen (Acetaminophen 325 Mg Tablet) 650 mg PO Q6H PRN PRN Reason: Pain, Mild 1-3,fever,headache Last Admin: 03/15/24 08:30 Dose: 650 mg Allopurinol (Allopurinol 100 Mg Tablet) 100 mg PO DAILY [facility] Last Admin: 03/16/24 09:26 Dose: 100 mg Apixaban (Apixaban 2.5 Mg Tablet) 2.5 mg PO BID [facility] Last Admin: 03/16/24 09:27 Dose: 2.5 mg Calcium Carbonate (Calcium Carbonate 750 Mg Tab.Chew) 750 mg PO Q4H PRN PRN Reason: Heartburn Ceftriaxone Sodium (Ceftriaxone Sodium 1 Gm Vial) 1 gm IVPUSH Q24H [facility] Last Admin: 03/15/24 16:15 Dose: 1 gm Doxazosin Mesylate (Doxazosin Mesylate 2 Mg Tablet) 6 mg PO BID [facility]; Protocol Last Admin: 03/16/24 09:26 Dose: 6 mg Duloxetine HCl (Duloxetine Hcl 20 Mg Capsule.Dr) 20 mg PO DAILY [facility] Last Admin: 03/16/24 09:26 Dose: 20 mg Guaifenesin/Dextromethorphan (Guaifenesin Dm 200/20/10 Ml 10 Ml Syrup) 10 ml PO Q6H PRN PRN Reason: Cough Magnesium Hydroxide (Milk Of Magnesia 30 Ml Oral.Susp) 30 ml PO DAILY PRN PRN Reason: Constipation Melatonin (Melatonin 3 Mg Tablet) 6 mg PO BEDTIME PRN PRN Reason: Insomnia Non-Formulary Medication (Finasteride) 1 mg PO DAILY [facility] Ondansetron HCl (Ondansetron Hcl 4 Mg/2 Ml Vial) 4 mg IVPUSH Q8H PRN PRN Reason: Nausea and Vomiting Simethicone (Simethicone 80 Mg Tab.Chew) 80 mg PO DAILY [facility] Last Admin: 03/16/24 09:33 Dose: Not Given Sodium Chloride (0.9 % Sodium Chloride Flush 3 Ml Syringe) 3 ml IVFLUSH QSHIFT [facility] Last Admin: 03/16/24 09:26 Dose: 3 ml Home Medications ?Medication ?Instructions ?Recorded ?Confirmed ?Last Taken ?Type allopurinol 100 mg tablet 100 mg PO DAILY 03/14/24 03/14/24 Unknown History apixaban 2.5 mg tablet (Eliquis) 2.5 mg PO BID 03/14/24 03/14/24 Unknown History chondroitin sulfate A sodium 400 400 mg PO DAILY 03/14/24 03/14/24 Unknown History mg capsule doxazosin 2 mg tablet 6 mg PO BID 03/14/24 03/14/24 Unknown History duloxetine 20 mg capsule,delayed 20 mg PO DAILY 03/14/24 03/14/24 Unknown History release finasteride 1 mg tablet 1 mg PO DAILY 03/14/24 03/14/24 Unknown History hydrochlorothiazide 12.5 mg capsule 12.5 mg PO DAILY 03/14/24 03/14/24 Unknown History multivitamin 1 tab PO DAILY 03/14/24 03/14/24 Unknown History simethicone 80 mg chewable tablet 80 mg PO DAILY 03/14/24 03/14/24 Unknown History thiamine HCl (vitamin B1) 100 mg 100 mg PO DAILY 03/14/24 03/14/24 Unknown History tablet vitamin E 268 mg (400 unit) capsule 268 mg PO DAILY 03/14/24 03/14/24 Unknown History Physical Exam Vital Signs: Vital Signs: Last Vital Signs Temp 98.2 F 03/16/24 12:00 Pulse 57 03/16/24 12:00 Resp 20 03/16/24 12:00 BP 157/78 H 03/16/24 12:00 Pulse Ox 94 03/16/24 12:00 O2 Del Method Room Air 03/16/24 12:00 Oxygen Flow Rate 2 03/14/24 11:15 BMI result Body Mass Index 30.0 Const: General: cooperative, comfortable, alert and awake Nutritional Appearance: overweight Orientation/consciousness: patient oriented x3 HEENT: Head: Yes normocephalic and Yes atraumatic Neck: Neck: Yes trachea midline, Yes supple and Yes no JVD Resp: Effort & Inspection: normal respiratory effort Auscultation: wheezes Cardio: Jugular venous distension: no JVD Palpation: normal PMI Rate: bradycardic Rhythm: regular rhythm Heart sounds: S1 normal heart sound present, S2 normal heart sound present, no click, no gallops, no murmurs and no rubs GI: Auscultation: normal bowel sounds Skin: General skin exam: no rashes or lesions noted Neuro: General: patient oriented x3 and no focal motor deficits Extrem: General: Yes no clubbing, cyanosis or edema Psych: Appearance: grossly normal Objective Labs and Meds 03/14/24 12:35 03/16/24 11:56 Lab results: Laboratory Results - last 24 hr 03/16/24 03/16/24 11:56 12:01 Hold Purple Top SEE NOTE Sodium 142 Potassium 3.6 Chloride 111 H Carbon Dioxide 27 Anion Gap 8 L BUN 19 H Creatinine 1.35 Estim Creat Clear Calc 48.1 Estimated GFR 51 Random Glucose 121 H Calcium 8.3 L Assessment and Plan (1) Tachy-benjamin syndrome: Status: Acute Patient with baseline significant sinus bradycardia with no symptoms although with no rate lowering medication has been developing significant symptoms of palpitation highly symptomatic, with symptoms of lightheadedness. Arrhythmia appears to be SVT with aberrancy. Will require rate lowering medication although this would potentiate his sinus bradycardia. Start him on low-dose metoprolol 12.5 mg b.i.d.. Most likely will require pacing therapy. Will watch him for next 24-48 hours for any recurrence and also to watch for response to metoprolol therapy. Discussed with him. He is agreeable. If he has significant bradycardia will arrange for transfer to [facility] for inpatient pacemaker placement. Will follow with you. Thank you for allowing me to partake in his care Procedures Date of Service Date of Service: 03/16/24
--- NOTE | 2024-03-16 14:45 | P.PNIM_ITS ---
Subjective Subjective Date of Service: 03/16/24 Interval History: Events from last night noted, patient after using bathroom when trying to pull up pants developed sweating ,LH and palpitations, similar symptoms when he had episodes of AFib with RVR in the past, EKG showed complex tachycardia with baseline left bundle branch block therefore patient transferred to intermediate care unit. At present patient denies chest pain, no palpitations, no lightheadedness dizziness or diaphoresis telemetry showing normal sinus rhythm with sinus bradycardia few PVCs Review of Systems All other system reviewed and are negative Physical Exam 2 Vital Signs: Vital Signs: Last Vital Signs Temp 98.2 F 03/16/24 12:00 Pulse 57 03/16/24 12:00 Resp 20 03/16/24 12:00 BP 157/78 H 03/16/24 12:00 Pulse Ox 94 03/16/24 12:00 O2 Del Method Room Air 03/16/24 12:00 Oxygen Flow Rate 2 03/14/24 11:15 BMI result Body Mass Index 30.0 Const: Other: General resting comfortably in no acute distress. Neck no JVD. CVS regular rate rhythm, Respiratory lungs clear to auscultation, no respiratory distress, no wheeze, no rhonchi. Gastrointestinal abdomen soft, non tender, bowel sounds audible, no guarding , no rigidity. Extremities no edema. Neuro dysarthria at baseline Skin no rash Psych appropriate affect Objective Data Active Medications Acetaminophen (Acetaminophen 325 Mg Tablet) 650 mg PO Q6H PRN PRN Reason: Pain, Mild 1-3,fever,headache Last Admin: 03/15/24 08:30 Dose: 650 mg Documented By: DUKE Allopurinol (Allopurinol 100 Mg Tablet) 100 mg PO DAILY [facility] Last Admin: 03/16/24 09:26 Dose: 100 mg Documented By: VALENTINA Apixaban (Apixaban 2.5 Mg Tablet) 2.5 mg PO BID [facility] Last Admin: 03/16/24 09:27 Dose: 2.5 mg Documented By: VALENTINA Calcium Carbonate (Calcium Carbonate 750 Mg Tab.Chew) 750 mg PO Q4H PRN PRN Reason: Heartburn Ceftriaxone Sodium (Ceftriaxone Sodium 1 Gm Vial) 1 gm IVPUSH Q24H [facility] Last Admin: 03/15/24 16:15 Dose: 1 gm Documented By: DUKE Doxazosin Mesylate (Doxazosin Mesylate 2 Mg Tablet) 6 mg PO BID [facility]; Protocol Last Admin: 03/16/24 09:26 Dose: 6 mg Documented By: VALENTINA Duloxetine HCl (Duloxetine Hcl 20 Mg Capsule.Dr) 20 mg PO DAILY [facility] Last Admin: 03/16/24 09:26 Dose: 20 mg Documented By: VALENTINA Guaifenesin/Dextromethorphan (Guaifenesin Dm 200/20/10 Ml 10 Ml Syrup) 10 ml PO Q6H PRN PRN Reason: Cough Magnesium Hydroxide (Milk Of Magnesia 30 Ml Oral.Susp) 30 ml PO DAILY PRN PRN Reason: Constipation Melatonin (Melatonin 3 Mg Tablet) 6 mg PO BEDTIME PRN PRN Reason: Insomnia Non-Formulary Medication (Finasteride) 1 mg PO DAILY [facility] Ondansetron HCl (Ondansetron Hcl 4 Mg/2 Ml Vial) 4 mg IVPUSH Q8H PRN PRN Reason: Nausea and Vomiting Simethicone (Simethicone 80 Mg Tab.Chew) 80 mg PO DAILY [facility] Last Admin: 03/16/24 09:33 Dose: Not Given Documented By: VALENTINA Non-Admin Reason: Patient Refused Sodium Chloride (0.9 % Sodium Chloride Flush 3 Ml Syringe) 3 ml IVFLUSH QSHIFT [facility] Last Admin: 03/16/24 09:26 Dose: 3 ml Documented By: VALENTINA Labs 03/14/24 12:35 03/16/24 11:56 Labs: Laboratory Results - last 24 hr 03/16/24 03/16/24 11:56 12:01 Hold Purple Top SEE NOTE Anion Gap 8 L Estim Creat Clear Calc 48.1 Estimated GFR 51 Random Glucose 121 H Calcium 8.3 L Microbiology Microbiology Results: Microbiology 03/14/24 12:51 Blood Culture - Preliminary Blood - Venous No growth after 24 hours. 03/14/24 16:38 Urine Culture - Final Urine clean catch - Clean Catch Midstream Proteus mirabilis 03/14/24 12:51 Blood Culture - Preliminary Blood - Venous No growth after 24 hours. Assessment and Plan (1) Tachy-benjamin syndrome: Status: Acute (2) Acute UTI: Status: Acute (3) SHIRA (acute kidney injury): Status: Acute Plan 83 yo male with PMH of CVA - dyshpagia, aphasia, dysarthria, BPH, HTN, afib on eliquis here with c/o cough, uri symptoms, difficulty clear phlegm of greater than 10 days duration diagnosed to have hypokalemia, hypomagnesemia and SHIRA and possible UTI. SVT with aberrancy History of PAF Events from last night noted patient developed symptomatic tachycardia EKG showed SVT with aberrancy, with baseline bradycardia. Cardiology consult obtained Dr. Berman recommend low-dose metoprolol 12.5 mg b.i.d., due to baseline bradycardia will likely require pacing therapy, will monitor on telemetry for next 24-48 hours to watch for response to beta- blockers, if noted to have significant bradycardia cardio will arrange for transferred to [facility] for inpatient pacemaker placement Continue Eliquis Acute bronchitis/ URI Feeling better,afebrile, normal WBC count, chest x-ray showed mild bronchial wall thickening respiratory viral pathogen positive for coronavirus Continue Supportive care with cough medications/analgesics Speech therapy recommends to continue chopped/advanced solids and thin liquids, medications whole with liquids intermittent supervisions Acute kidney injury Resolved with IV fluid obtain baseline labs from primary care physician last creatinine 1.[address] abdomen and pelvis showed no obstruction, showed prostatomegaly Voiding with no difficulty. Acute UTI urine culture growing Proteus mirabilis sensitive to ceftriaxone , blood cultures negative, will transition to by mouth antibiotics at a.m. Acute Hypo magnesemia Repleted Acute hypokalemia likely due to hydrochlorothiazide, repleted History of CVA with residual dysarthria and dysphagia Continue modified diet BPH continue doxazosin Hypertension elevated blood pressure , hydrochlorothiazide discontinued DVT prophylaxis with Eliquis Full code In my clinical judgment patient requires 2 night inpatient hospitalization for treatment of SHIRA and electrolyte abnormalities requiring close electrolyte monitoring and treatment of UTI/URI and dysphagia. Quality Stroke Does the patient have a stroke diagnosis?: No VTE Prior VTE?: No VTE Risk Level:: Medical - moderate - high VTE Device Contraindication: N/A - Device Ordered VTE Drug Contraindication: N/A - Med Ordered
[2024-03-16] MEDS: cefTRIAXone sodium 1 GM VIAL IVPUSH (16:43)
[2024-03-16] MEDS: Acetaminophen 325 MG TABLET 650 MG PO (21:30)
[2024-03-16] MEDS: Melatonin 3 MG TABLET 6 MG PO (21:31)
[2024-03-17] VITALS: BP 157/70; PULSE 50; RESP 16; TEMP 36.4; O2SAT 95
[2024-03-17 04:00] VITALS: BP 167/80; PULSE 58; RESP 20; TEMP 36.6; O2SAT 94
[2024-03-17 08:00] VITALS: BP 150/70; PULSE 62; RESP 20; TEMP 36.8; O2SAT 93
[2024-03-17] MEDS: Metoprolol Tartrate 12.5 MG HALFTAB PO (09:43)
[2024-03-17] MEDS: Apixaban 2.5 MG TABLET PO ×2 (09:43→22:23)
[2024-03-17] MEDS: DULoxetine HCl 20 MG CAPSULE.DR PO (09:43)
[2024-03-17] MEDS: Doxazosin Mesylate 2 MG TABLET 6 MG PO ×2 (09:43→22:23)
[2024-03-17] MEDS: Simethicone 80 MG TAB.CHEW PO (09:43)
[2024-03-17] MEDS: allopurinoL 100 MG TABLET PO (09:43)
[2024-03-17] MEDS: 0.9 % Sodium Chloride Flush 3 ML SYRINGE IVFLUSH ×2 (09:50→16:35)
[2024-03-17 11:29] VITALS: BP 154/69; PULSE 54; RESP 18; TEMP 36.8; O2SAT 94
--- NOTE | 2024-03-17 13:03 | P.PNIM_ITS ---
Subjective Subjective Date of Service: 03/17/24 Interval History: Being followed for SVT with underlying history of atrial fibrillation,/UTI and viral infection Feeling better no recurrent episodes of SVT, feels lightheaded with ambulation otherwise denies sweating, no shortness of breath or palpitations. Tele monitor shows heart rate in 50s Review of Systems All other system reviewed and are negative Physical Exam 2 Vital Signs: Vital Signs: Last Vital Signs Temp 98.3 F 03/17/24 11:29 Pulse 54 03/17/24 11:29 Resp 18 03/17/24 11:29 BP 154/69 H 03/17/24 11:29 Pulse Ox 94 03/17/24 11:29 O2 Del Method Room Air 03/17/24 11:29 Oxygen Flow Rate 2 03/14/24 11:15 BMI result Body Mass Index 30.0 Const: Other: General resting comfortably in no acute distress. Neck no JVD. CVS regular rate rhythm, Respiratory lungs clear to auscultation, no respiratory distress, no wheeze, no rhonchi. Gastrointestinal abdomen soft, non tender, bowel sounds audible, no guarding , no rigidity. Extremities no edema. Neuro dysarthria at baseline Skin no rash Psych appropriate affect Objective Data Active Medications Acetaminophen (Acetaminophen 325 Mg Tablet) 650 mg PO Q6H PRN PRN Reason: Pain, Mild 1-3,fever,headache Last Admin: 03/16/24 21:30 Dose: 650 mg Documented By: PETER Allopurinol (Allopurinol 100 Mg Tablet) 100 mg PO DAILY [facility] Last Admin: 03/17/24 09:43 Dose: 100 mg Documented By: UPJA Apixaban (Apixaban 2.5 Mg Tablet) 2.5 mg PO BID [facility] Last Admin: 03/17/24 09:43 Dose: 2.5 mg Documented By: PUJA Calcium Carbonate (Calcium Carbonate 750 Mg Tab.Chew) 750 mg PO Q4H PRN PRN Reason: Heartburn Ceftriaxone Sodium (Ceftriaxone Sodium 1 Gm Vial) 1 gm IVPUSH Q24H [facility] Last Admin: 03/16/24 16:43 Dose: 1 gm Documented By: VALENTINA Doxazosin Mesylate (Doxazosin Mesylate 2 Mg Tablet) 6 mg PO BID [facility]; Protocol Last Admin: 03/17/24 09:43 Dose: 6 mg Documented By: PUJA Duloxetine HCl (Duloxetine Hcl 20 Mg Capsule.Dr) 20 mg PO DAILY [facility] Last Admin: 03/17/24 09:43 Dose: 20 mg Documented By: PUJA Guaifenesin/Dextromethorphan (Guaifenesin Dm 200/20/10 Ml 10 Ml Syrup) 10 ml PO Q6H PRN PRN Reason: Cough Magnesium Hydroxide (Milk Of Magnesia 30 Ml Oral.Susp) 30 ml PO DAILY PRN PRN Reason: Constipation Melatonin (Melatonin 3 Mg Tablet) 6 mg PO BEDTIME PRN PRN Reason: Insomnia Last Admin: 03/16/24 21:31 Dose: 6 mg Documented By: PETER Metoprolol Tartrate (Metoprolol Tartrate 12.5 Mg Halftab) 12.5 mg PO BID [facility]; Protocol Last Admin: 03/17/24 09:43 Dose: 12.5 mg Documented By: PUJA Comments: MD maloney to give Non-Formulary Medication (Finasteride) 1 mg PO DAILY [facility] Ondansetron HCl (Ondansetron Hcl 4 Mg/2 Ml Vial) 4 mg IVPUSH Q8H PRN PRN Reason: Nausea and Vomiting Simethicone (Simethicone 80 Mg Tab.Chew) 80 mg PO DAILY [facility] Last Admin: 03/17/24 09:43 Dose: 80 mg Documented By: PUJA Sodium Chloride (0.9 % Sodium Chloride Flush 3 Ml Syringe) 3 ml IVFLUSH QSHIFT [facility] Last Admin: 03/17/24 09:50 Dose: 3 ml Documented By: PUJA Labs 03/14/24 12:35 03/16/24 11:56 Microbiology Microbiology Results: Microbiology 03/14/24 12:51 Blood Culture - Preliminary Blood - Venous No growth after 48 hours. 03/14/24 12:51 Blood Culture - Preliminary Blood - Venous No growth after 48 hours. 03/14/24 16:38 Urine Culture - Final Urine clean catch - Clean Catch Midstream Proteus mirabilis Assessment and Plan (1) Paroxysmal atrial fibrillation: Status: Acute (2) Tachy-benjamin syndrome: Status: Acute (3) Acute UTI: Status: Acute Plan 83 yo male with PMH of CVA - dyshpagia, aphasia, dysarthria, BPH, HTN, afib on eliquis here with c/o cough, uri symptoms, difficulty clear phlegm of greater than 10 days duration diagnosed to have hypokalemia, hypomagnesemia and SHIRA and possible UTI. SVT with aberrancy/ tachybrady syndrome History of PAF with bradycardia Had 1 episode of symptomatic tachycardia EKG showed SVT with aberrancy, with baseline bradycardia on 03/15. No recurrent episodes since Continue metoprolol 12.5 mg b.i.d., due to baseline bradycardia will likely require pacing therapy, will monitor on telemetry for next 24-48 hours to watch for response to beta-blockers, Cardiology following if remained stable will be discharged home with Holter monitor Continue Eliquis Acute bronchitis/ URI Feeling better,afebrile, normal WBC count, chest x-ray showed mild bronchial wall thickening respiratory viral pathogen positive for coronavirus Continue Supportive care with cough medications/analgesics Speech therapy recommends to continue chopped/advanced solids and thin liquids, medications whole with liquids intermittent supervisions Acute kidney injury Resolved with IV fluid obtain baseline labs from primary care physician last creatinine 1.[address] abdomen and pelvis showed no obstruction, showed prostatomegaly Voiding with no difficulty. Acute UTI urine culture growing Proteus mirabilis sensitive to ceftriaxone , blood cultures negative, will transition to by mouth antibiotics upon discharge Acute Hypo magnesemia Repleted Acute hypokalemia likely due to hydrochlorothiazide, repleted History of CVA with residual dysarthria and dysphagia Continue modified diet BPH continue doxazosin Hypertension elevated blood pressure , hydrochlorothiazide discontinued, on metoprolol 12.5 b.i.d. as above DVT prophylaxis with Eliquis. Full code In my clinical judgment patient requires continued inpatient hospitalization for treatment of SVT with baseline bradycardia requiring tele monitor/expert consultation. Quality Stroke Does the patient have a stroke diagnosis?: No VTE Prior VTE?: No VTE Risk Level:: Medical - moderate - high VTE Device Contraindication: N/A - Device Ordered VTE Drug Contraindication: N/A - Med Ordered
--- NOTE | 2024-03-17 13:08 | PM.PNCARD ---
Subjective Subjective Date of Service: 03/17/24 Principal diagnosis: SVT, sinus bradycardia. Interval history: Patient with no overnight arrhythmias or tachycardia. Overnight had sinus bradycardia but by morning time his heart rate when he is ambulating is in the low 60s. No lightheadedness with ambulation. No syncopal episodes. Review of Systems Constitutional: Reports no additional constitutional complaints Cardiovascular: Reports no additional cardiovascular complaints Respiratory: Reports no additional respiratory complaints Gastrointestinal: Reports no additional gastrointestinal complaints Genitourinary: Reports no additional male genitourinary complaints Musculoskeletal: Reports no additional musculoskeletal complaints Skin/Breast: Reports system reviewed and no additional complaints, except as docu Reports system reviewed and no additional complaints, except as documented Endocrine: Reports no additional endocrine complaints Physical Exam Vital Signs: Last Vital Signs Temp 98.3 F 03/17/24 11:29 Pulse 54 03/17/24 11:29 Resp 18 03/17/24 11:29 BP 154/69 H 03/17/24 11:29 Pulse Ox 94 03/17/24 11:29 O2 Del Method Room Air 03/17/24 11:29 Oxygen Flow Rate 2 03/14/24 11:15 BMI result Body Mass Index 30.0 Const General: cooperative, comfortable, alert and awake Nutritional Appearance: overweight Orientation/consciousness: patient oriented x3 HEENT Head: Yes normocephalic and Yes atraumatic Neck Neck: Yes trachea midline, Yes supple and Yes no JVD Resp Effort & Inspection: normal respiratory effort Auscultation: wheezes Cardio Jugular venous distension: no JVD Palpation: normal PMI Rate: bradycardic Rhythm: regular rhythm Heart sounds: S1 normal heart sound present, S2 normal heart sound present, no click, no gallops, no murmurs and no rubs GI Auscultation: normal bowel sounds Skin General skin exam: no rashes or lesions noted Neuro General: patient oriented x3 and no focal motor deficits Extrem General: Yes no clubbing, cyanosis or edema Psych Appearance: grossly normal Objective Labs and Meds 03/14/24 12:35 03/16/24 11:56 Progress Note: A&P Assessment and plan (1) Tachy-benjamin syndrome: Status: Acute Assessment and Plan: 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 He is tolerating low-dose metoprolol therapy without any significant bradycardia or pauses. I would hold off on pacemaker therapy at this point time. Discussed with the patient. We discussed about vagal maneuvers with SVT. He understands. Will refer him as outpatient for EP evaluation for consideration of ablation for his SVT so that he can come off metoprolol therapy in the long run. Follow-up outpatient with Holter monitor. Continue low-dose metoprolol therapy. Avoidance of stimulants was discussed. If stable by tomorrow can be discharged (2) Paroxysmal atrial fibrillation: Status: Acute Assessment and Plan: Prior history of paroxysmal atrial fibrillation with stroke. Atrial fibrillation has remained suppressed. Has been off rate lowering medication due to bradycardia. Started low-dose metoprolol therapy. Avoidance of stimulants was discussed. Continue full oral anticoagulation with Eliquis. Can resume his blood pressure medication including hydrochlorothiazide and doxazosin. Consider changing Eliquis dose to 5 mg b.i.d. given his improved creatinine. Will follow with you Time Spent With Patient Time: Total time managing care of this patient today ____ minutes. Progress Note: Quality Stroke Does the patient have a stroke diagnosis?: No Procedures Date of Service Date of Service: 03/17/24
[2024-03-17 15:53] VITALS: BP 152/72; PULSE 50; RESP 14; TEMP 36.9; O2SAT 94
[2024-03-17] MEDS: cefTRIAXone sodium 1 GM VIAL IVPUSH (16:34)
[2024-03-17 20:00] VITALS: BP 142/67; PULSE 56; RESP 16; TEMP 37.1; O2SAT 92
[2024-03-17] MEDS: Melatonin 3 MG TABLET 6 MG PO (22:23)
[2024-03-18 04:00] VITALS: BP 136/70; PULSE 53; RESP 20; TEMP 36.7; O2SAT 94
[2024-03-18 08:00] VITALS: BP 148/64; PULSE 54; RESP 16; TEMP 36.8; O2SAT 94
[2024-03-18] MEDS: Apixaban 2.5 MG TABLET PO (09:13)
[2024-03-18] MEDS: 0.9 % Sodium Chloride Flush 3 ML SYRINGE IVFLUSH (09:13)
[2024-03-18] MEDS: Metoprolol Tartrate 12.5 MG HALFTAB PO (09:13)
[2024-03-18] MEDS: cefuroxime axetiL 250 MG TABLET PO (09:13)
[2024-03-18] MEDS: DULoxetine HCl 20 MG CAPSULE.DR PO (09:13)
[2024-03-18] MEDS: Simethicone 80 MG TAB.CHEW PO (09:13)
[2024-03-18] MEDS: allopurinoL 100 MG TABLET PO (09:13)
[2024-03-18] MEDS: Doxazosin Mesylate 2 MG TABLET 6 MG PO (09:13)
--- NOTE | 2024-03-18 10:23 | PM.PNCARD ---
Subjective Subjective Date of Service: 03/18/24 Principal diagnosis: SVT, sinus bradycardia. Interval history: Patient with no symptoms. SVT is remained suppressed. Overnight noted sinus bradycardia while he was sleeping. No lightheadedness, syncope. No atrial fibrillation episodes. Review of Systems Review of Systems Yes all other systems are reviewed and are negative Physical Exam Vital Signs: Last Vital Signs Temp 98.3 F 03/18/24 08:00 Pulse 54 03/18/24 08:00 Resp 16 03/18/24 08:00 BP 148/64 H 03/18/24 08:00 Pulse Ox 94 03/18/24 08:00 O2 Del Method Room Air 03/18/24 08:00 Oxygen Flow Rate 2 03/14/24 11:15 BMI result Body Mass Index 30.0 Const General: cooperative, comfortable, alert and awake Nutritional Appearance: overweight Orientation/consciousness: patient oriented x3 HEENT Head: Yes normocephalic and Yes atraumatic Neck Neck: Yes trachea midline, Yes supple and Yes no JVD Resp Effort & Inspection: normal respiratory effort Auscultation: wheezes Cardio Jugular venous distension: no JVD Palpation: normal PMI Rate: bradycardic Rhythm: regular rhythm Heart sounds: S1 normal heart sound present, S2 normal heart sound present, no click, no gallops, no murmurs and no rubs GI Auscultation: normal bowel sounds Skin General skin exam: no rashes or lesions noted Neuro General: patient oriented x3 and no focal motor deficits Extrem General: Yes no clubbing, cyanosis or edema Psych Appearance: grossly normal Objective Labs and Meds 03/14/24 12:35 03/16/24 11:56 Progress Note: A&P Assessment and plan (1) Tachy-benjamin syndrome: Status: Acute Assessment and Plan: Patient with SVT highly symptomatic, currently suppressed on low-dose metoprolol therapy. We discussed about vagal maneuvers. Will refer him outpatient to EP for evaluation for ablation. For now continue metoprolol therapy. Avoidance of stimulants was discussed. Noted sinus bradycardia only during sleep time. During daytime his heart rate goes up to 60s and 70s, I do not think at this point time in needs a pacemaker. If he is not ablatable and has recurrent episode that requires higher dose of medications may require a pacemaker placement. Will refer to EP for the same. (2) Paroxysmal atrial fibrillation: Status: Acute Assessment and Plan: Paroxysmal atrial fibrillation which has remained suppressed. At this point time no need for antiarrhythmic drug therapy. Continue metoprolol therapy. Continue full oral anticoagulation Eliquis given his prior history of stroke and high risk for recurrent thromboembolic events. Will follow with him as outpatient. Time Spent With Patient Time: Total time managing care of this patient today ____ minutes. Progress Note: Quality Stroke Does the patient have a stroke diagnosis?: No Procedures Date of Service Date of Service: 03/18/24
--- NOTE | 2024-03-18 10:38 | P.DS_ITS ---
DS: Providers Provider Date of Service: 03/18/24 Date of admission: 03/14/24 18:34 Date of discharge: 03/18/24 Primary care physician: Matthias Rogel Consults: 03/16/24 09:17 Consult to Cardiology Routine Consulting Provider: [facility] Reason for consultation: afib benjamin /tachy Has provider been notified: No DS: Diagnosis Discharge Diagnosis (1) Tachy-benjamin syndrome: Status: Acute (2) Paroxysmal atrial fibrillation: Status: Acute DS: Summary Hospital Course Hospital Course: History of presenting illness: Date of Service: 03/14/24 Chief Complaint: URI symptoms 3-year-old gentleman with past medical history of CVA with residual dysphagia, aphasia and dysarthria, BPH, hypertension, AFib on Eli[facility] due to symptoms of cough runny nose of greater than 10 days duration, he denies associated fever chills, no shortness of breath, no chest pain, no nausea, vomiting, abdominal pain, no diarrhea, no urinary symptoms of urgency, no frequency, no headache, no dizziness his home health aide was sick but since his symptoms were not improving he presented to emergency room, in ED patient noted to have hypokalemia, potassium 3.1, magnesium 1.5, creatinine 1.56 that got worsened with IV fluid to 1.73, chest x- ray showed mild bronchial wall thickening, RSV, influenza and COVID negative, due to persistent URI symptoms with acute kidney injury patient is being admitted to [facility] for further treatment and evaluation. Lives alone at home has [employer] services, ambulate without assisted device. Hospital course: 83 yo male with PMH of CVA - dyshpagia, aphasia, dysarthria, BPH, HTN, afib on eliquis here with c/o cough, uri symptoms, difficulty clear phlegm of greater than 10 days duration diagnosed to have hypokalemia, hypomagnesemia and SHIRA and possible UTI during course of hospitalization noted to have tachycardia and treated for following medical issues.. SVT with aberrancy/ tachybrady syndrome, with underlying history of PAF with bradycardia, had 1 episode of symptomatic tachycardia, EKG showed SVT with aberrancy no further recurrent episodes since patient treated with metoprolol 12.5 mg b.i.d. and was monitored closely on tele monitor due to chronic bradycardia patient had no worsening bradycardia remains hemodynamically stable was followed closely by cardiology they recommend outpatient follow-up for further workup including Holter monitor patient is being discharged home on Toprol XL 25 mg daily and recommended close cardiology follow-up. Acute bronchitis/ URI patient had normal WBC count, remained afebrile chest x- ray showed mild bronchial wall thickening,respiratory viral pathogen positive for coronavirus patient treated with supportive care Seen by Speech therapy they recommended chopped/advanced solids and thin liquids, medications whole with liquids intermittent supervisions Acute kidney injury likely due to dehydration resolved with fluids, baseline labs from primary care physician last creatinine 1.49 on January 29 ,CT abdomen and pelvis showed no obstruction, showed prostatomegaly Voiding with no difficulty. Acute UTI urine culture grew Proteus mirabilis sensitive to ceftriaxone , blood cultures negative, recommend to continue Ceftin 250 mg b.i.d. for 2 more days . Acute Hypo magnesemia Repleted Acute hypokalemia likely due to hydrochlorothiazide, repleted History of CVA with residual dysarthria and dysphagia Continue modified diet BPH continue doxazosin Hypertension take Toprol-XL 25 mg daily as above. Time Attestation Discharge Coordination Time (in mins): 40 Quality: Safe Use of Opioids Does Pt have an Active Cancer Diagnosis on the Problem List?: No Quality: Stroke Does the patient have a stroke diagnosis?: No Physical Exam Vital Signs: Vital Signs: Last Vital Signs Temp 98.3 F 03/18/24 08:00 Pulse 54 03/18/24 08:00 Resp 16 03/18/24 08:00 BP 148/64 H 03/18/24 08:00 Pulse Ox 94 03/18/24 08:00 O2 Del Method Room Air 03/18/24 08:00 Oxygen Flow Rate 2 03/14/24 11:15 BMI result Body Mass Index 30.0 Const: Other: General resting comfortably in no acute distress. Neck no JVD. CVS regular rate rhythm, Respiratory lungs clear to auscultation, no respiratory distress, no wheeze, no rhonchi. Gastrointestinal abdomen soft, non tender, bowel sounds audible, no guarding , no rigidity. Extremities no edema. Neuro dysarthria at baseline Skin no rash Psych appropriate affect DS: Data Data Completed and Pending Labs on day of discharge: Preliminary micro results at discharge 03/14/24 12:51 Blood Culture - Preliminary Blood - Venous No growth after 48 hours. 03/14/24 12:51 Blood Culture - Preliminary Blood - Venous No growth after 48 hours. Discharge Plan Discharge Anticipated Discharge Date/Time: 03/18/24 10:30 Patient Disposition: Home, Self-Care Discharge Diagnosis: Tachybrady syndrome Acute UTI Referrals: Matthias Rogel [Primary Care Provider] - 1 Week Discharge Medications: New cefuroxime axetil 250 mg Tablet 250 mg PO Q12H Qty: 6 0RF metoprolol succinate [Toprol XL] 25 mg tablet extended release 24 hr 25 mg PO DAILY Qty: 30 0RF Continued multivitamin Tablet 1 tab PO DAILY thiamine HCl (vitamin B1) 100 mg Tablet 100 mg PO DAILY allopurinol 100 mg Tablet 100 mg PO DAILY chondroitin sulfate A sodium 400 mg Capsule 400 mg PO DAILY vitamin E 268 mg (400 unit) Capsule 268 mg PO DAILY finasteride 1 mg Tablet 1 mg PO DAILY doxazosin 2 mg Tablet 6 mg PO BID simethicone 80 mg Tablet,Chewable 80 mg PO DAILY duloxetine 20 mg Capsule,Delayed Release(Dr/Ec) 20 mg PO DAILY Eliquis 2.5 mg Tablet 2.5 mg PO BID Discontinued hydrochlorothiazide 12.5 mg Capsule 12.5 mg PO DAILY Discharge Orders: Discharge Order (Routine); Ordered 03/18/24 Ordered By: Rachael Agustin Diet: Chopped advanced solids a Activity on Discharge: As tolerated Stand Alone Forms: Patient Portal Discharge page Print Language: Spanish Care Plan Goals: Tachybrady syndrome take Toprol-XL 25 mg 1 tablet daily starting tomorrow Take Ceftin 250 mg 1 tablet twice daily Discontinue hydrochlorothiazide Rest Continue all home medications as before Health Concerns: Paroxysmal atrial fibrillation continue Eliquis Plan of Treatment: Outpatient follow-up with primary care physician call for appointment Outpatient follow-up with Dr. Berman senior human resources representative call for appointment Assessment: As above
--- NOTE | 2024-03-18 10:39 | MHC.CM.PN ---
PT CLEARED TO DC HOME TODAY WITH NO NEW SERVICES FRIEND TO TRANSPORT
[2024-03-18 11:46] VITALS: BP 142/65; PULSE 52; RESP 18; TEMP 37.1; O2SAT 95
== END 2024-03-18 13:45 | disposition home or self-care (01) | DRG 202 ==
LOC: HO.ED 15:47 → HO.EDOVER 18:42 → HO.S3 19:14 → HO.IMC 03-16 00:35
PROVIDERS: Physician Assistant Medical; Admitting Provider Hospitalist; Emergency Provider Emergency Medicine; PCP Internal Medicine; Visit Provider Hospitalist
DX: J20.9 Acute bronchitis, unspecified (principal); I47.19 Other supraventricular tachycardia; N17.9 Acute kidney failure, unspecified; N39.0 Urinary tract infection, site not specified; N40.1 Benign prostatic hyperplasia with lower urinary tract symptoms; R33.8 Other retention of urine; I10 Essential (primary) hypertension; I69.391 Dysphagia following cerebral infarction; I69.320 Aphasia following cerebral infarction; B96.4 Proteus (mirabilis) (morganii) as the cause of diseases classified elsewhere; I49.5 Sick sinus syndrome; R13.10 Dysphagia, unspecified; E86.0 Dehydration; B97.29 Other coronavirus as the cause of diseases classified elsewhere; E87.6 Hypokalemia; E83.42 Hypomagnesemia; Z20.822 Contact with and (suspected) exposure to COVID-19; Z87.891 Personal history of nicotine dependence; Z79.01 Long term (current) use of anticoagulants; Z79.899 Other long term (current) drug therapy
CPT/HCPCS: 0241U; 36415; 71045; 74176; 80048; 80053; 81001; 82550; 82565; 83605; 83735; 83880; 85025; 87040; 87086; 87088; 87186; 87633; 92526; 92610; 93005; 93306; 94640; 99285; C1758; J0696; J3475; Q9957

== ENCOUNTER → 2024-03-14 12:16 | Outpatient (BNV) | payer MEDICARE, SELFPAY | PROVIDERS: Emergency Provider Emergency Medicine; Visit Provider Radiology Diagnostic Radiology | DX: R06.02 Shortness of breath (principal); N17.9 Acute kidney failure, unspecified | CPT/HCPCS: 71045; 74176 ==

== ENCOUNTER → 2024-03-14 17:15 | Outpatient (BNV) | payer MEDICARE, SELFPAY | PROVIDERS: Admitting Provider Hospitalist; Emergency Provider Emergency Medicine; Visit Provider Internal Medicine Cardiovascular Disease | DX: R00.1 Bradycardia, unspecified (principal) | CPT/HCPCS: 93010 ==

== ENCOUNTER 2024-03-14 18:34 | Outpatient (BNV) | payer MEDICARE, SELFPAY | END 2024-03-15 23:21 | PROVIDERS: Admitting Provider Hospitalist; Emergency Provider Emergency Medicine; Visit Provider Internal Medicine Cardiovascular Disease | DX: R00.0 Tachycardia, unspecified (principal) | CPT/HCPCS: 93010 ==

== ENCOUNTER 2024-03-14 18:34 | Outpatient (BNV) | payer MEDICARE, SELFPAY | END 2024-03-16 07:00 | PROVIDERS: Admitting Provider Hospitalist; Emergency Provider Emergency Medicine; PCP Internal Medicine; Visit Provider Internal Medicine Cardiovascular Disease | DX: I35.0 Nonrheumatic aortic (valve) stenosis (principal); I35.8 Other nonrheumatic aortic valve disorders; I34.81 Nonrheumatic mitral (valve) annulus calcification; I51.89 Other ill-defined heart diseases | CPT/HCPCS: 93306 ==

== ENCOUNTER → 2024-03-14 18:34 | Outpatient (BNV) | payer MEDICARE, SELFPAY | PROVIDERS: Admitting Provider Hospitalist; Emergency Provider Emergency Medicine; Visit Provider Hospitalist | DX: I49.5 Sick sinus syndrome (principal); N39.0 Urinary tract infection, site not specified; N17.9 Acute kidney failure, unspecified | CPT/HCPCS: 99223; 99232; 99233; 99239; 99499 ==

== ENCOUNTER → 2024-03-14 18:34 | Outpatient (BNV) | payer MEDICARE, SELFPAY | PROVIDERS: Admitting Provider Hospitalist; Emergency Provider Emergency Medicine; PCP Internal Medicine; Visit Provider Internal Medicine Cardiovascular Disease | DX: I49.5 Sick sinus syndrome (principal) | CPT/HCPCS: 99222 ==

== ENCOUNTER 2024-12-09 09:42 | Inpatient (IN) | payer OTHER, SELFPAY ==
[2024-12-09] VITALS (8 sets, daily range): BP systolic 122–167; BP diastolic 62–79; PULSE 71–99; RESP 11–20; TEMP 36.4–37.3; O2SAT 90–95; BMI 37.9; BMI 39.0
--- NOTE | ~2024-12-09 | XR_ITS ---
EXAMINATION: XR CHEST 1 VIEW HISTORY: parapneumonic effusion COMPARISON: Comparison is made with the prior examination dated 12/09/2024. FINDINGS: A single AP portable view of the chest performed at 1:19 PM is submitted. There is opacification of the left lung base consistent with atelectasis or pneumonia. There is an associated pleural effusion. The right lung is clear. There is no right pleural effusion, pneumothorax, or pulmonary vascular congestion. The heart is normal in size. There is degenerative disc disease of the spine. XR/XR chest 1V IMPRESSION: Left basilar atelectasis versus pneumonia with an associated pleural effusion. Electronically signed by: Mychal Keller MD 12/11/2024 02:07 PM EDT
--- NOTE | ~2024-12-09 | XR_ITS ---
EXAMINATION: XR CHEST CLINICAL INFORMATION: serial xr - effusion L COMPARISON: 12/11/2024, 12/09/2024. TECHNIQUE: Frontal view of the chest was obtained. FINDINGS: The cardiac, hilar, and mediastinal contours are normal. No significant interval change in left basilar opacity with small to moderate size layering pleural effusion. No focal osseous or soft tissue abnormality. Degenerative changes noted in both shoulder joints and throughout the spine. XR/XR chest 1V IMPRESSION: No significant interval change from 12/11/2024. Layering small to moderate-sized left effusion with basilar consolidation. Electronically signed by: Facundo Greene MD 12/13/2024 11:37 AM EDT
--- NOTE | ~2024-12-09 | XR_ITS ---
EXAMINATION: XR CHEST 1 VIEW HISTORY: follow up effusion COMPARISON: Comparison is made with the prior examination dated 12/17/2024. FINDINGS: A single AP portable view of the chest performed at 3:01 PM is submitted. Again seen is a small to moderate left pleural effusion. Underlying atelectasis or pneumonia at the left lung base is not excluded. There is no pneumothorax or pulmonary vascular congestion. The heart is normal in size. There is degenerative disc disease of the spine. XR/XR chest 1V IMPRESSION: Small to moderate left pleural effusion without change. Underlying atelectasis or pneumonia at the left lung base is not excluded. Electronically signed by: Mychal Keller MD 12/20/2024 03:32 PM EDT
--- NOTE | ~2024-12-09 | CT_ITS ---
CLINICAL HISTORY: Throwing up blood CT abdomen and pelvis with contrast Comparison: CT - CT ANGIO CHEST PE PROTOCOL - 12/09/24 10:[address]/SR - CT ABDOMEN PELVIS WO IV CON - 03/14/24 16:00 EST Findings: There is a left effusion with left basilar atelectasis/pneumonia. The patient is status post cholecystectomy. The liver is otherwise unremarkable. Small left renal cysts are noted. Right renal cysts are also noted. There is pancreatic atrophy. The spleen and adrenal glands are normal. No bowel obstruction, pneumoperitoneum, or pneumatosis. There is prostatomegaly. There is colonic diverticulosis without evidence of diverticulitis. There is mild dilatation of the crossing duodenum without evidence of mechanical obstruction. The finding is nonspecific. The GI tract is otherwise unremarkable. No acute fracture. There is multilevel degenerative disc disease. IMPRESSION: Mild dilatation of the crossing duodenum without evidence of obstruction no luminal lesions are identified. Other chronic findings as above. This document has been electronically signed by: Venkatesh Daley MD on 12/09/2024 12:46:35
--- NOTE | ~2024-12-09 | XR_ITS ---
EXAMINATION: XR CHEST CLINICAL INFORMATION: f/u pleural effusion COMPARISON: Prior day. 12/13/2024. TECHNIQUE: 2 views of the chest were obtained. FINDINGS: The cardiac, hilar, and mediastinal contours are normal. Aortic mural calcification. Layering small to moderate size left effusion is stable. Underlying parenchymal consolidation is present, also unchanged. Linear atelectasis in the left midlung. The right lung is clear. There is no right effusion. There is no pneumothorax. There is no focal osseous or soft tissue abnormality. XR/XR chest 2V IMPRESSION: No significant interval change. Layering small to moderate left effusion with underlying left basilar parenchymal opacity. Electronically signed by: Facundo Grenee MD 12/17/2024 04:16 PM EDT
--- NOTE | ~2024-12-09 | FL_ITS ---
EXAMINATION: XR BARIUM SWALLOW CLINICAL INFORMATION: Aspiration COMPARISON: None available. TECHNIQUE: Fluoroscopic guidance provided for modified barium swallow performed by the speech and hearing department. Patient was administered liquid barium of varying thickness and food mixed with barium. FINDINGS: There is aspiration with thin liquid barium and nectar thickened barium. No aspiration or penetration was seen with thicker liquid barium. Patient was administered applesauce mixed with barium and no aspiration or penetration seen. Patient could not tolerate solid food/cookie mixed with barium. There is retention in the vallecula. FLUOROSCOPY TIME: 2 minutes 15 seconds DOSE AREA PRODUCT: 2089 uGy-m2 (microgray-meter squared) FL/FL Modified Barium Swallow IMPRESSION: Aspiration seen with thin liquid barium and nectar thickened barium. Retention in the vallecula. Electronically signed by: Aarti Pineda MD 12/21/2024 04:57 PM EDT
--- NOTE | ~2024-12-09 | CT_ITS ---
CLINICAL HISTORY: hemotysis ? pulm hemorrhage CT angiography chest with contrast. 3D Postprocessing. Comparison: None provided Findings: The heart is normal size. RV/LV ratio is normal. The thoracic aorta is normal caliber. No pulmonary artery filling defects. The visualized thyroid and mediastinum are unremarkable. There is a small to moderate loculated left pleural effusion. There is associated passive atelectasis. Left lower lobe pneumonia is not excluded. There is some debris within the trachea and left lower lobe bronchus suggestive of aspiration. The upper abdomen is unremarkable. No acute fractures. IMPRESSION: 1. No evidence of pulmonary embolism. 2. Some debris seen within the trachea and left lower lobe bronchus suggesting aspiration. Associated loculated effusion and left basilar atelectasis/pneumonia. 3. Severe coronary artery disease. This document has been electronically signed by: Venkatesh Daley MD on 12/09/2024 12:53:44
--- NOTE | ~2024-12-09 | XR_ITS ---
CLINICAL HISTORY: improvement in pleural effusion? Chest Radiograph Comparison: CR/SR - XR CHEST 1 VIEW - 12/13/24 11:04 EDT CR/SR - XR CHEST 1 VIEW - 12/11/24 13:[address]/GA/SR - CT ANGIO CHEST PE PROTOCOL - 12/09/24 10:57 EDT CR - XR CHEST 1V - 12/09/24 10:37 EDT CR - XR CHEST 1V - 03/14/24 12:16 EST Findings: No cardiomegaly. Normal mediastinal contours. No pneumothorax. Left lower lung zone opacity and small left pleural effusionpresent since 12/09/24. No right pleural effusion. Normal upper abdomen. No acute fracture. Impression: Left lower lung zone opacity indicating pneumonia. Small cavitating component seen on the recent CT is not well seen on radiographs. Associated small left pleural effusion. Follow up to complete resolution. This document has been electronically signed by: Natasha Krueger MD on 12/16/2024 13:30:01
--- NOTE | ~2024-12-09 | CT_ITS ---
EXAMINATION: CT SOFT TISSUE NECK WITH CONTRAST CLINICAL INFORMATION: Hemoptysis. Popping, felt in the neck. COMPARISON: None available. TECHNIQUE: Following the intravenous administration of 60 mL of Omnipaque 350 intravenous contrast, helical imaging was performed in the axial plane with generation of coronal and sagittal reformatted images. This CT examination was performed using dose optimization techniques as appropriate, variously including the following: *Automated exposure control *Adjustment of mA and/or kV according to patient size (this includes techniques or standardized protocols for targeted exams where dose is matched to indication/reason for exam; i.e. extremities or head) *Use of iterative reconstruction technique DLP: 321 mGy centimeter. FINDINGS: There is a 42 x 28 x 65 mm lobulated and well-defined thin septated nonenhancing fat density mass centered within the muscle fibers of the right sternocleidomastoid muscle. There is a 9 mm ovoid shaped gasfilled abnormality centered in the midline of the nasopharynx with a questionable faint wall/web anteriorly. No discrete mass. Skull base, retropharynx, oropharynx, hypopharynx and larynx demonstrated no gross masses. Salivary glands demonstrated normal enhancement pattern without sialolithiasis or focal mass. [employer] spaces, parapharyngeal spaces, carotid spaces demonstrated no gross masses or fluid collections. Mixed plaques in the carotid bulbs and proximal ICAs representing less than 70% stenosis. The vessels are patent. Heterogeneously enlarged right thyroid lobe. Oral cavity, sublingual and submandibular compartments demonstrated no gross masses or fluid collections. No gross cervical lymphadenopathy. There is a lobulated left-sided pleural effusion, large volume. Calcified plaques in the thoracic aortic arch and the origin of the left subclavian artery. The left vertebral artery origin is posterior to the left subclavian artery in the aortic arch. Multilevel cervical spondylosis C3 C7 pronounced at C4-5 C5-6 and to a lesser extent C3-4 and C6-7 levels. There is degenerative changes in the periodontal C1 region. Tympanic cavities and mastoid cells are aerated. Polypoid mucosal thickening, maxillary sinuses. Old traumatic deformity nasal bones. CT/CT soft tissue neck w IV con IMPRESSION: 42 x 28 x 65 mm lobulated thin septated lipoma, right sternocleidomastoid muscle. Malignancy seems this likely. Heterogeneous nodular enlarged right thyroid lobe. Concerning loculated large volume left-sided pleural effusion. 9 mm gas abnormality midline nasopharynx without discrete mass. Multilevel moderate to severe cervical spondylosis. Electronically signed by: Rickey Gray MD 12/10/2024 03:49 PM EDT RP
--- NOTE | ~2024-12-09 | XR_ITS ---
CLINICAL HISTORY: hemoptysis 1 view chest x-ray Comparison: CR - XR CHEST 1V - 03/14/24 12:16 EST Findings: There is a small left effusion. There is left basilar atelectasis/pneumonia. Normal size heart. No acute fracture. IMPRESSION: There is a small left effusion. There is left basilar atelectasis/pneumonia. This document has been electronically signed by: Venkatesh Daley MD on 12/09/2024 11:45:56
--- NOTE | 2024-12-09 09:48 | ECG_ITS ---
Test Reason : UNRESPONSIVE Blood Pressure : */* mmHG Vent. Rate : 90 BPM Atrial Rate : 90 BPM P-R Int : 210 ms QRS Dur : 162 ms QT Int : 400 ms P-R-T Axes : 87 -15 149 degrees QTcB Int : 489 ms Sinus rhythm with 1st degree A-V block Left bundle branch block Abnormal ECG When compared with ECG of 15-Mar-2024 23:21, Sinus rhythm has replaced Wide QRS tachycardia Vent. rate has decreased by 64 bpm Referred By: Mame Daily Electronically Signed By: Wai Schumacher
--- NOTE | 2024-12-09 10:01 | ED.GENADULT ---
HPI - General Adult General Chief complaint: Dental/Oral Stated complaint: BLEEDING FROM THROAT Time Seen by Provider: 12/09/24 09:44 Source: patient Mode of arrival: ambulatory Limitations: no limitations History of Present Illness ED Provider: LETI Daily HPI narrative: 84-year-old male past medical history of atrial fibrillation anticoagulated on Eliquis, tachy-benjamin syndrome, presents to the emergency department with concerns of blood in mouth, patient reports he was drinking his T he felt something ?pop in his throat ?and later he started having significant amount of bleeding. He does tell me he is a drinker and drinks a moderate amount of alcohol regularly. He denies associated pain. Nothing like this has happened to him before. He is med compliant with his blood thinners. Upon arrival he is hemodynamically stable and he was given some TXA by EMS Related Data Home Medications ?Medication ?Instructions ?Recorded ?Confirmed allopurinol 100 mg tablet 100 mg PO DAILY 03/14/24 03/14/24 apixaban 2.5 mg tablet (Eliquis) 2.5 mg PO BID 03/14/24 03/14/24 chondroitin sulfate A sodium 400 400 mg PO DAILY 03/14/24 03/14/24 mg capsule doxazosin 2 mg tablet 6 mg PO BID 03/14/24 03/14/24 duloxetine 20 mg capsule,delayed 20 mg PO DAILY 03/14/24 03/14/24 release finasteride 1 mg tablet 1 mg PO DAILY 03/14/24 03/14/24 multivitamin 1 tab PO DAILY 03/14/24 03/14/24 simethicone 80 mg chewable tablet 80 mg PO DAILY 03/14/24 03/14/24 thiamine HCl (vitamin B1) 100 mg 100 mg PO DAILY 03/14/24 03/14/24 tablet vitamin E 268 mg (400 unit) capsule 268 mg PO DAILY 03/14/24 03/14/24 Previous Rx's ?Medication ?Instructions ?Recorded cefuroxime axetil 250 mg tablet 250 mg PO Q12H #6 tabs 03/18/24 metoprolol succinate 25 mg 25 mg PO DAILY #30 tabs 03/18/24 tablet,extended release 24 hr (Toprol XL) Allergies Allergy/AdvReac Type Severity Reaction Status Date / Time amlodipine Allergy Unknown Verified 12/09/24 09:53 diltiazem Allergy Unknown Verified 12/09/24 09:53 Penicillins Allergy Unknown Verified 12/09/24 09:53 spironolactone Allergy Unknown Verified 12/09/24 09:53 Review of Systems Review of Systems: Yes all other systems are reviewed and are negative [facility] Past Medical History Attestation statement: The following information was validated with the patient. Source: old records reviewed and nursing notes reviewed Medical History BPH (benign prostatic hyperplasia) Afib HTN (hypertension) Acute CVA (cerebrovascular accident) Social History Social History Household Members: None Housing: House Do you presently have visiting nurse or other home services: Yes ([facility] services and has [place] services for transportation) Alcohol intake: current Alcohol intake frequency: holidays/special occasions only Alcohol type: beer Patient Tobacco Use Status: Former Tobacco user Tobacco use type: Cigarette Cigarette Packs Per Day: 1 Cigarettes Per Day: 20.0 Smoked in Last 30 Days: No e-Cigarette/Vaping Use: Never Used Second Hand Smoke Exposure: No Use of substances other than those prescribed or required for medical reasons: No Advance Directives: No Advance Directives Information Provided: Yes service: Yes Physical Exam ED Exam Exam: Appearance: Alert.? Oriented X3.? No acute distress.? Head: Normocephalic, atraumatic, no step-offs or deformities Eyes: Pupils equal, round and reactive to light.? ENT: Pharynx + blood in mouth and posterior pharynx as well as blood in b/l nares.? Neck: Normal inspection.? Neck supple.? CVS: Normal heart rate and rhythm.? Pulses normal.? Respiratory: No respiratory distress.? Breath sounds normal.? Abdomen: Soft and nontender.? Skin: Skin warm and dry.? Normal skin color.? Normal skin turgor.? Extremities: No lower extremity edema.? No calf ttp. 5/5 strength to bilateral upper and lower extremities Neuro: Oriented X 3.? No motor deficit.? No sensory deficit. CN 2-12 intact Vital Signs: Vital Signs - 24 hr 12/09/24 09:46 12/09/24 10:07 12/09/24 10:21 Temperature 99.2 F Pulse Rate 96 82 80 Respiratory Rate 16 17 11 L Blood Pressure 141/75 H 122/73 156/78 H Pulse Oximetry 92 95 90 L Oxygen Delivery Method Room Air Humidified O2 Aerosol Mask Oxygen Flow Rate 6 Fraction of Inspired Oxygen 35 12/09/24 10:22 12/09/24 12:11 Temperature Pulse Rate 71 82 Respiratory Rate 16 20 Blood Pressure 125/68 Pulse Oximetry 93 Oxygen Delivery Method Nasal Cannula Oxygen Flow Rate 6 Fraction of Inspired Oxygen BMI result Body Mass Index 37.9 vss Course Reevaluation(s) Reevaluation #1: 10:12 AM 12/09/2024 (Dr. Naseem Sweeney): Patient evaluated with AP P provider, and I took EMS call who reported the patient felt a pop in his throat and as bleeding and they called me to state whether it is okay to administer 1 g of TXA, I told EMS that they can administer that, patient presented to the ER, he coughed up a few clots, he is not tachycardic, he is slightly hypertensive, rectal exam without miladys melena, my differential of the time is nasal bleed, versus Mariah-Crowe tear, versus hemoptysis versus upper GI bleed. I examined his nasal cavities, he has boggy nasal mucosa, there were some blood in the posterior oropharynx initially, and as I will set bedside there has been no miladys hematemesis or hemoptysis. I have also used mac 4 blade to look in the oropharyngeal area I do not see any clots over the glottis or any clots from the esophagus. My current recommendations: 18 gauge x 2, type and screen, he is on blood thinners, hold off reversal at this time as there was no miladys bleeding, have blood on hold for transfusion, airway equipment at the bedside, he is getting Tx a nebulization when I think it is reasonable, as well as octreotide and omeprazole. He is otherwise speaking full sentences as I mentioned above vital signs are stable. He will have imaging done to evaluate for hemoptysis, and we will be on standby for emergent intervention. Reevaluation #2: CBC with leukocytosis 17.1 and no left shift. Chemistry with mild elevation in BUN and creatinine however appears to be around his baseline. Troponin 20.9. Repeat pending. There was no need for transfusion therefore orders canceled. OBS was negative. Chest x-ray with small left effusion and left basilar atelectasis/pneumonia. This could have been in the setting of aspiration. Will give ceftriaxone and doxycycline. Patient no longer bleeding hemodynamically stable. Time: 11:53 Reevaluation #3: EKG with a first-degree AV block no ischemic changes. Chest CTA no evidence of pulmonary embolism some debris seen within the trachea and left lower lobe bronchus suggesting aspiration loculated effusion and left basilar atelectasis/pneumonia. Severe coronary artery disease CT abdomen and pelvis with mild dilation of the crossing duodenum wo ostuction Plan admission Time: 13:03 Medications Administered Generic Name Dose Route Start Last Admin Trade Name Freq PRN Reason Stop Dose Admin Doxycycline Hyclate 100 mg/ 250 mls @ 166.67 mls/hr 12/09/24 11:50 12/09/24 12:12 Sodium Chloride IV 12/09/24 13:19 166.67 mls/hr ONCE ONE Administration Discontinued Medications Generic Name Dose Route Start Last Admin Trade Name Freq PRN Reason Stop Dose Admin Ceftriaxone Sodium 1 gm 12/09/24 11:50 12/09/24 12:11 Ceftriaxone Sodium 1 Gm Vial IVPUSH 12/09/24 11:51 1 gm ONCE ONE Administration Famotidine 20 mg 12/09/24 10:09 12/09/24 10:18 Famotidine/Pf 20 Mg/2 Ml Vial IVPUSH 12/09/24 10:10 20 mg ONCE ONE Administration Iohexol 100 ml 12/09/24 11:12 12/09/24 11:12 Iohexol 350 Mg/Ml 100 Ml Infus..Btl IV 12/09/24 11:13 85 ml ONCE ONE Administration Octreotide Acetate 50 mcg 12/09/24 10:09 12/09/24 10:18 Octreotide Acetate 100 Mcg/Ml Ampul IVPUSH 12/09/24 10:10 50 mcg ONCE ONE Administration Tranexamic Acid 500 mg 12/09/24 10:12 12/09/24 10:19 Tranexamic Acid 1,000 Mg/10 Ml Vial INTRANASAL 12/09/24 10:13 500 mg ONCE ONE Administration Medical Decision Making Medical Decision Making [facility] Narrative: 1018 84-year-old male presents with what he describes as blood in his mouth, he reports he heard a pop and then he started bleeding out of his mouth. Physical exam moderate amount of blood in the posterior pharynx and bilateral nares. Patient's vital signs stable. History and physical exam concerning for possible hemoptysis stemming from Mariah-Crowe tear patient does admit to drinking. This could also be a posterior nosebleed causing patient to feel blood down his throat. Unlikely hemodynamic instability at this time. Will rule out anemia and metabolic derangement Plan labs, imaging. Immediately upon arrival focus was on hemodynamic stability, rectal exam was done and nebulized TXA was used. Differential Diagnosis Differential Diagnoses: The differential diagnosis associated with the presentation includes (History and physical exam concerning for possible hemoptysis stemming from Mariah-Crowe tear patient does admit to drinking. This could also be a posterior nosebleed causing patient to feel blood down his throat. Unlikely hemodynamic instability at this time. Will rule out anemia and metabolic d) Admission/Observation Consideration of admission/observation: Escalation of care including admission/observation considered Consult Healthcare Provider Management of the patient was discussed with: Hospitalist Lab Data MDM Lab Attestation statement: I reviewed the patient's lab results. 12/09/24 10:01 12/09/24 10:01 Labs: Lab Results 12/09/24 12/09/24 12/09/24 Range/Units 10:01 10:03 10:05 WBC 17.1 H (4.8-10.8) X10*3/uL RBC 4.40 L (4.60-5.80) X10*6/uL Hgb 13.7 L (14.0-18.0) g/dl Hct 41.7 L (42.0-52.0) % MCV 94.8 (80.0-98.0) fL MCH 31.1 (27.0-33.0) pg MCHC 32.9 (31.0-36.0) g/dl RDW 13.2 (11.0-16.0) % Plt Count 288 D (160-400) X10*3/uL MPV 10.2 (9.4-12.4) fL Immature Gran % (Auto) 0.8 H (0.0-0.4) % Neut % (Auto) 71.9 (45-73) % Lymph % (Auto) 15.9 L (20-40) % [place] % (Auto) 7.9 (2-11) % Eos % (Auto) 2.9 (0-4) % Baso % (Auto) 0.6 (0-2) % Lymph # (Auto) 2.7 (1.2-4.9) X10*3/uL [place] # (Auto) 1.4 H (0.1-1.2) X10*3/uL Eos # (Auto) 0.5 H (0.0-0.4) X10*3/uL Baso # (Auto) 0.1 (0.0-0.2) X10*3/uL Abs Immat Gran (auto) 0.14 H (0.00-0.03) X10*3/uL Absolute Neuts (auto) 12.3 H (2.0-8.3) x10*3/uL Absolute Nucleated RBC 0.000 (0.0-0.012) X10*3/uL Nucleated RBC % (auto) 0.0 (0.0-0.2) /100WBC PT 22.4 H (10.9-12.4) SEC INR 2.0 H (0.9-1.1) Sodium 144 (135-145) mmol/L Potassium 3.5 (3.3-5.1) mmol/L Chloride 108 (96-108) mmol/L Carbon Dioxide 26 (22-29) mmol/L Anion Gap 14 (12-20) BUN 31 H (9-16) mg/dL Creatinine 1.65 H (0.5-1.4) mg/dL Estim Creat Clear Calc 33.1 Estimated GFR 40 Random Glucose 145 H (60-115) mg/dL Lactic Acid (0.5-2.0) mmol/L Calcium 9.6 D (8.4-10.2) mg/dL Magnesium 1.8 (1.6-2.6) mg/dL Total Bilirubin 0.7 (0.0-1.0) mg/dL AST 49 H (5-37) U/L ALT 41 H (0-40) U/L Alkaline Phosphatase 117 (39-117) U/L Troponin I High Sens 20.9 (<3.5-35.0) ng/L Total Protein 7.1 (6.5-8.0) g/dL Albumin 3.3 L (3.5-5.0) g/dL Stool Occult Blood NEGATIVE (NEGATIVE) Blood Type O Positive Antibody Screen NEGATIVE Crossmatch See Detail 12/09/24 12/09/24 Range/Units 10:31 12:03 WBC (4.8-10.8) X10*3/uL RBC (4.60-5.80) X10*6/uL Hgb (14.0-18.0) g/dl Hct (42.0-52.0) % MCV (80.0-98.0) fL MCH (27.0-33.0) pg MCHC (31.0-36.0) g/dl RDW (11.0-16.0) % Plt Count (160-400) X10*3/uL MPV (9.4-12.4) fL Immature Gran % (Auto) (0.0-0.4) % Neut % (Auto) (45-73) % Lymph % (Auto) (20-40) % [place] % (Auto) (2-11) % Eos % (Auto) (0-4) % Baso % (Auto) (0-2) % Lymph # (Auto) (1.2-4.9) X10*3/uL [place] # (Auto) (0.1-1.2) X10*3/uL Eos # (Auto) (0.0-0.4) X10*3/uL Baso # (Auto) (0.0-0.2) X10*3/uL Abs Immat Gran (auto) (0.00-0.03) X10*3/uL Absolute Neuts (auto) (2.0-8.3) x10*3/uL Absolute Nucleated RBC (0.0-0.012) X10*3/uL Nucleated RBC % (auto) (0.0-0.2) /100WBC PT (10.9-12.4) SEC INR (0.9-1.1) Sodium (135-145) mmol/L Potassium (3.3-5.1) mmol/L Chloride (96-108) mmol/L Carbon Dioxide (22-29) mmol/L Anion Gap (12-20) BUN (9-16) mg/dL Creatinine (0.5-1.4) mg/dL Estim Creat Clear Calc Estimated GFR Random Glucose (60-115) mg/dL Lactic Acid 1.7 (0.5-2.0) mmol/L Calcium (8.4-10.2) mg/dL Magnesium (1.6-2.6) mg/dL Total Bilirubin (0.0-1.0) mg/dL AST (5-37) U/L ALT (0-40) U/L Alkaline Phosphatase (39-117) U/L Troponin I High Sens 26.8 (<3.5-35.0) ng/L Total Protein (6.5-8.0) g/dL Albumin (3.5-5.0) g/dL Stool Occult Blood (NEGATIVE) Blood Type Antibody Screen Crossmatch Independent Interpretation I performed an independent interpretation of an: EKG (Sinus rhythm with 1st degree A-V block Left bundle branch block Abnormal ECG When compared with ECG of 15-Mar-2024 23:21, Sinus rhythm has replaced Wide QRS tachycardia Vent. rate has decreased by 64 bpm), Plain X-Ray (IMPRESSION: There is a small left effusion. There is left basilar atelectasis/pneumonia.) and CT Scan (IMPRESSION: 1. No evidence of pulmonary embolism. 2. Some debris seen within the trachea and left lower lobe bronchus suggesting aspiration. Associated loculated effusion and left basilar atelectasis/pneumonia. 3. Severe coronary artery disease.) Interpretation: IMPRESSION: Mild dilatation of the crossing duodenum without evidence of obstruction no luminal lesions are identified. Other chronic findings as above. Radiology Impression Discussion of test interpretation with radiology: I have reviewed the radiologist's reading. Independent Historian Clinical information obtained from an independent historian. History obtained from or confirmed by: EMS External Record Review External record reviewed: Inpatient record, Office record, Outpatient record, Prior outpatient labs, Prior outpatient radiology, Primary care record and Outside ED record Prescription Management I considered prescription management with: Other (see MAR ) Chronic Conditions Patient?s care impacted by: Other (see hpi ) Critical Care Time Critical Care Time Critical Care Time: Yes Total Critical Care Time: 45 Attestation: I attest to this time spent taking care of the patient, obtaining history, physical, reviewing labs, imaging, treatment of patients condition +/- specialist/hospitalist consult +/- procedure Discharge Plan Discharge Clinical Impression: Pneumonia, Hypoxia, Upper gastrointestinal bleed, SHIRA (acute kidney injury) Patient Disposition: Admitted As Inpatient Print Language: Gambian
[2024-12-09 10:07] LABS: MANUAL DIFF FLAG NO
[2024-12-09] MEDS: Octreotide Acetate 100 MCG/ML AMPUL 50 MCG IVPUSH (10:18)
[2024-12-09] MEDS: Tranexamic Acid 1,000 MG/10 ML VIAL 500 MG INTRANASAL (10:19)
[2024-12-09 10:22] LABS: Alanine Aminotransferase 41 U/L (0-40); Albumin Level 3.3 g/dL (3.5-5.0); Alkaline Phosphatase 117 U/L (39-117); Anion Gap 14 (12-20); Aspartate Amino Transferase 49 U/L (5-37); Blood Urea Nitrogen 31 mg/dL (9-16); Calcium 9.6 mg/dL (8.4-10.2); Carbon Dioxide 26 mmol/L (22-29); Chloride 108 mmol/L (96-108); Creatinine Clr Calc Pharmacy 33.1; Estimated Glomerular Filt Rate 40; Magnesium 1.8 mg/dL (1.6-2.6); Potassium 3.5 mmol/L (3.3-5.1); Sodium 144 mmol/L (135-145); Total Protein 7.1 g/dL (6.5-8.0)
[2024-12-09 10:23] LABS: OBS Int Ctl Valid YES; OBS1 NEGATIVE (NEGATIVE)
[2024-12-09 10:23] LABS: Hematocrit 41.7 % (42.0-52.0); Hemoglobin 13.7 g/dl (14.0-18.0); Imm Gran Abs Auto 0.14 X10*3/uL (0.00-0.03); Imm Gran Pct Auto 0.8 % (0.0-0.4); Lymphocytes Absolute Auto 2.7 X10*3/uL (1.2-4.9); Mean Corpuscular HGB Conc 32.9 g/dl (31.0-36.0); Mean Corpuscular Hemoglobin 31.1 pg (27.0-33.0); Mean Corpuscular Volume 94.8 fL (80.0-98.0); NRBC Abs Auto 0.000 X10*3/uL (0.0-0.012); NRBC Pct Auto 0.0 /100WBC (0.0-0.2); Platelet Count 288 X10*3/uL (160-400); Red Blood Count 4.40 X10*6/uL (4.60-5.80); White Blood Count 17.1 X10*3/uL (4.8-10.8)
[2024-12-09 10:24] LABS: INTERNATIONAL NORM RATIO 2.0 (0.9-1.1); Prothrombin Time 22.4 SEC (10.9-12.4)
[2024-12-09 10:29] LABS: Troponin-I High Sensitivity 20.9 ng/L (<3.5-35.0)
--- NOTE | 2024-12-09 10:43 | PC.NURSE ---
Addendum entered by Lila Mckinney RN 12/09/24 10:44: Patient is a 84 yo male with past medical history of CVA with residual dysphagia, aphasia and dysarthria, BPH, hypertension, AFib [facility] Eli[facility] presented active bleeding from his mouth per EMS, requiring some bagging and a infusion of TXA. Patient states heard a pop and started bleeding. Upon arrival, no active bleeding noted. Alert and oriented. engine monitor applied and sinus noted with a BBB. Lungs with rhonchi. Patient extremely congested and some hypoventilation noted. Resp therapy at the bedside. Plan for nebulized TXA. Provider visualized oral airway via a scope and no active bleeding noted. Lavaged area via nares. Abdomen soft, distended with positive bowel sounds. Positive pedal pulses noted Original Note: Medical History BPH (benign prostatic hyperplasia) Afib HTN (hypertension) Acute CVA (cerebrovascular accident)
[2024-12-09] MEDS: iohexoL 350 MG/ML 100 ML INFUS..BTL IV (11:12)
--- OUTSIDE RECORDS SUMMARY | 2024-12-09 11:22 | XMS_ITS | Encounter Summary ---
Author Organization [facility] Address [address] [address] Phone Care Team Providers Care Drying Supervisor Name Role Phone Matthias Rogel MD Primary Care Provider + Encounter Details Date Type Department Care Team (Late st Contact Info) Description 09/19/2021 Procedure Pass [facility], [address] [address] Social History Tobacco Use Types Packs/Day Years Used Date Smoking Tobacco: Never Smokeless Tobacco: Never Alcohol Use Standard Drinks/Week Comments No 0 (1 standard drink = 0.6 oz pur e alcohol) Sex and Gender Information Value Date Recorded Sex Assigned at Male 11/14/2017 2:11 PM EDT Legal Sex Male 10:11 PM EDT Gender Identity Male 11/14/2017 2:11 PM EDT Sexual Orientation Straight 11/14/2017 2: 11 PM EDT documented as of this encounter Functional Status * Calculated C-SSRS Risk Score (Lifetime/Recent) Answer Date of Assessment Author No Risk Indicated 09/19/2021 1:00 PM EDT Sabi Henson RN * [place] Suicide Severity Rating Scale (Screener/Recent Self-Report) Question Answer Date of Assessment Author 1. Wish to be (Past 1 Month) No 09/19/2021 1:00 PM EDT Lorie Valentino RN 2. Non-Specific Active Suicidal Thoughts (Past 1 Month) No 09/19/2021 1:00 PM EDT Lorie Valentino, AASHISH 6. Suicidal Behavior (Lifetime) No 09/19/2021 1:00 PM EDT Lorie Valentino RN documented as of this encounter Plan of Treatment Not on file documented as of this encounter Visit Diagnoses Not on filedocumented in this encounter Care Teams Drying Supervisor Relationship Specialty Start Date End Date Matthias Rogel MD [address] [place] [phone] PCP - General 03/17/17 documented as of this encounter Additional Source Comments The information contained in this document represents components of the legal health record. It is not the complete legal health record.[facility]
--- OUTSIDE RECORDS SUMMARY | 2024-12-09 11:22 | XMS_ITS | Encounter Summary ---
Author Organization [facility] Address [address] [address] Phone Care Team Providers Care Robot Operator Name Role Phone Matthias Rogle MD Primary Care Provider + Encounter Details Date Type Department Care Team (Late st Contact Info) Description 09/22/2021 Procedure Pass [facility] [address] [place] [address] Social History Tobacco Use Types Packs/Day Years [...] PM EDT documented as of this encounter Plan of Treatment Not on file documented as of this encounter Visit Diagnoses Not on filedocumented in this encounter Care Teams Robot Operator Relationship Specialty Start Date End Date Matthias Rogel MD [address] [place] [phone] PCP - General 03/17/17 documented as of this encounter Additional Source Comments The information contained in this document represents components of the legal health record. It is not the complete legal health record.[facility]
--- OUTSIDE RECORDS SUMMARY | 2024-12-09 11:23 | XMS_ITS | Encounter Summary ---
Author Organization [facility] Address [address] [facility] [address] [place] [phone] Phone Care Team Providers Care Digital Computer Systems Analyst Name Role Phone Matthias Rogel MD Primary Care Provider + Encounter Details Date Type Department Care Team (Late st Contact Info) Description 09/19/2021 Procedure Pass [facility], Ct Scan - [address] [address] Social History Tobacco Use Types Packs/Day Years [...] 1:00 PM EDT Sabi Henson RN * [place] Suicide Severity Rating Scale (Screener/Recent Self-Report) Question Answer Date of Assessment Author 1. Wish to be (Past 1 Month) No 09/19/2021 1:00 PM EDT Lorie Valentino, AASHISH 2. Non-Specific Active Suicidal Thoughts (Past 1 Month) No 09/19/2021 1:00 PM EDT Lorie Valentino, AASHISH 6. Suicidal Behavior (Lifetime) No 09/19/2021 1:00 PM EDT Lorie Valentino RN documented as of this encounter Plan of Treatment Not on file documented as of this encounter Visit Diagnoses Not on filedocumented in this encounter Care Teams Digital Computer Systems Analyst Relationship Specialty Start Date End Date Matthias Rogel MD [address] [place] [phone] PCP - General 03/17/17 documented as of this encounter Additional Source Comments The information contained in this document represents components of the legal health record. It is not the complete legal health record.[facility]
--- OUTSIDE RECORDS SUMMARY | 2024-12-09 11:23 | XMS_ITS | Encounter Summary ---
Author Organization [facility] Address [address] [address] Phone Care Team Providers Care Strings Teacher Name Role Phone Matthias Rogel MD Primary Care Provider + Encounter Details Date Type Department Care Team (Late st Contact Info) Description 07/29/2017 Procedure Pass [facility], Ct Scan [address] [address] Social History Tobacco Use Types Packs/Day Years Used Date Smoking Tobacco: Never Assessed Sex and Gender Information Value Date Recorded Sex Assigned at Male 11/14/2017 2:11 PM EDT Legal Sex Male 10:11 PM EDT Gender Identity Male 11/14/2017 2:11 PM EDT Sexual Orientation Straight 11/14/2017 2: 11 PM EDT documented as of this encounter Plan of Treatment Not on file documented as of this encounter Visit Diagnoses Not on filedocumented in this encounter Care Teams Strings Teacher Relationship Specialty Start Date End Date Matthias Rogel MD [address] [place] [phone] PCP - General 03/17/17 documented as of this encounter Additional Source Comments The information contained in this document represents components of the legal health record. It is not the complete legal health record.[facility]
--- OUTSIDE RECORDS SUMMARY | 2024-12-09 11:23 | XMS_ITS | Encounter Summary ---
Author Organization [facility] Address [address] [place] [phone] Phone Care Team Providers Care Erp Project Manager Name Role Phone Matthias Rogel MD Primary Care Provider + Encounter Details Date Type Department Care Team (Late st Contact Info) Description 09/25/2021 Procedure Pass [place] Admitting Dept - Virtual Department [address] [place] [address] Social History Tobacco Use Types Packs/Day Years [...] on filedocumented in this encounter Care Teams Erp Project Manager Relationship Specialty Start Date End Date Matthias Rogel MD [address] [place] [phone] PCP - General 03/17/17 documented as of this encounter Additional Source Comments The information contained in this document represents components of the legal health record. It is not the complete legal health record.[facility]
--- OUTSIDE RECORDS SUMMARY | 2024-12-09 11:23 | XMS_ITS | Encounter Summary ---
Author Organization [facility] Address [address] [facility] [address] [place] [phone] Phone Care Team Providers Care Traffic Maintenance Supervisor Name Role Phone Matthias Rogel MD Primary Care Provider + Encounter Details Date Type Department Care Team (Late st Contact Info) Description 09/19/2021 Procedure Pass [facility], Ct Scan - [address] [address] Social History Tobacco Use Types Packs/Day Years [...] 1:00 PM EDT Sabi Henson RN * [place] Suicide Severity Rating Scale (Screener/Recent Self-Report) Question [...] on filedocumented in this encounter Care Teams Traffic Maintenance Supervisor Relationship Specialty Start Date End Date Matthias Rogel MD [address] [place] [phone] PCP - General 03/17/17 documented as of this encounter Additional Source Comments The information contained in this document represents components of the legal health record. It is not the complete legal health record.[facility]
--- OUTSIDE RECORDS SUMMARY | 2024-12-09 11:23 | XMS_ITS | Encounter Summary ---
Author Organization [facility] Address [address] [place] [phone] Phone Care Team Providers Care Nurse Prn Name Role Phone Matthias Rogel MD Primary Care Provider + Encounter Details Date Type Department Care Team (Late st Contact Info) Description 09/23/2021 Procedure Pass [facility] Cardiovascular And Interventional Radiology [address] [place] [address] Social History Tobacco Use Types Packs/Day Years [...] on filedocumented in this encounter Care Teams Nurse Prn Relationship Specialty Start Date End Date Matthias Rogel MD [address] [place] [address] PCP - General 03/17/17 documented as of this encounter Additional Source Comments The information contained in this document represents components of the legal health record. It is not the complete legal health record.[facility]
--- OUTSIDE RECORDS SUMMARY | 2024-12-09 11:23 | XMS_ITS | Encounter Summary ---
Author Organization [facility] Address [address] [address] Phone Care Team Providers Care Foundry Superintendant Name Role Phone Matthias Rogel MD Primary Care Provider + Encounter Details Date Type Department Care Team (Late st Contact Info) Description 08/11/2017 Procedure Pass [address] [address] Social History Tobacco Use Types Packs/Day Years [...] on filedocumented in this encounter Care Teams Foundry Superintendant Relationship Specialty Start Date End Date Matthias Rogel MD [address] [place] [id number] PCP - General 03/17/17 documented as of this encounter Additional Source Comments The information contained in this document represents components of the legal health record. It is not the complete legal health record.[facility]
--- OUTSIDE RECORDS SUMMARY | 2024-12-09 11:23 | XMS_ITS | Clinical Summary ---
Author Organization [facility] Address [address] [place] [address] Phone Care Team Providers Care Intelligence Analyst Name Role Phone Matthias Rogel MD Primary Care Provider + Allergies Active Allergy Reactions Criticality Noted Date Comments Penicillins 11/14/2017 Spironolactone 03/26/2015 Other reaction(s): Unknown Medications losartan (COZAAR) 100 MG tablet 1 tablet (100 mg total) by Gastrostomy Tube route daily. 2 Active dilTIAZem (CARDIZEM) 60 MG immediate release tablet 1 tablet (60 mg total) by Gastrostomy Tube route every 6 (six) hours. 2 Active doxazosin (CARDURA) 2 MG tablet 1 tablet (2 mg total) by Gastrostomy Tube route daily. 2 Active finasteride (PROSCAR) 5 mg tablet 1 tablet (5 mg total) by Gastrostomy Tube route daily. 2 Active acetaminophen (TYLENOL) 160 mg/5 mL (5 mL) suspension 20.3 mL (650 mg total) by Gastrostomy Tube route every 6 (six) hours as needed. 2 Active apixaban (ELIQUIS) 5 mg tablet 1 tablet (5 mg total) by Gastrostomy Tube route 2 (two) times a day. 2 Active atorvastatin (LIPITOR) 40 MG tablet 1 tablet (40 mg total) by Gastrostomy Tube route nightly at bedtime. 2 Active thiamine (VITAMIN B-1) 100 mg Tab tablet 1 tablet (100 mg total) by Gastrostomy Tube route daily. 2 Active omeprazole (PRILOSEC) 20 MG capsule 1 capsule (20 mg total) by Gastrostomy Tube route daily. 2 Active Active Problems Problem Noted Date Diagnosed Date CVA (cerebral vascular accident) 09/19/2021 Assessment & Plan (09/28/2021 1:47 PM EDT): -Brain MRI obtained on 09/20 showing small acute infarct involving the posterior right basal ganglia and adjacent vazquez radiata -Fluoroscopy swallow study performed on 09/21 with extreme limitations. No aspiration appreciated -Echo performed on 09/22 showing mild LVH with normal LV systolic function EF 60 to 65%. Normal diastolic function. Thickened aortic valve with grossly normal function. No source of embolism identified. PEG placed 09/[address] Catherine -- will follow her recommendations for how to initiate use Abdominal xray on 09/27 shows small volume pneumoperitoneum likely related to gastrostomy placement -Patient with significant dysarthria but no word finding difficulty, left facial droop noted, communicating via notepad and pen -Chart does reference paroxysmal a fib -Speech-language pathology appreciated, patient continue NPO -Able to perform finger to nose testing -5/5 utility operator strength bilaterally. 5/5 upper extremity strength bilaterally. -1 assist with use of walker -PT OT - Lipid panel with LDL less than 70 -Metoprolol tartrate held due to sinus bradycardia -Mild bloating. Denies abdominal pain -Increased oral secretions that inhibited him from sleeping last night. Relief with atropine ophthalmic solution. -Clopidogrel initiated, will d/c aspirin and start eliquis -HOB 30-45 degrees -Osmolite 1.2 genie via G tube. Tolerating feedings well. Will try oral medications via G tube today. Excellent candidate for acute rehab once everything is in place Continue advancing tube feeds to goal I anticipate he will need enteral tube feeds for >90 days due to dysphagia Hypertension Assessment & Plan (09/24/2021 12:01 PM EDT): Continue beta lissa but will hold ARB and diuretic Will schedule IV hydralazine and metoprolol Family History Relation Status Comments Father Mother Social History Tobacco Use Types Packs/Day Years Used Date Smoking Tobacco: Never Smokeless Tobacco: Never Alcohol Use Standard Drinks/Week Comments No 0 (1 standard drink = 0.6 oz pur e alcohol) Education Answer Date Recorded Are you interested in more education? Not on kalina e 07/09/2022 Are you concerned about learning? Not on file 07/09/2022 No 07/09/2022 No 07/09/2022 Digital Access Answer Date Recorded No 08/07/2022 No 08/07/2022 Reliable internet access at home? Not on file 08/07/2022 Device with a working camera? Not on file Sex and Gender Information Value Date Recorded Sex Assigned at Male 11/14/2017 2:11 PM EDT Legal Sex Male 10:11 PM EDT Gender Identity Male 11/14/2017 2:11 PM EDT Sexual Orientation Straight 11/14/2017 2: 11 PM EDT Last Filed Vital Signs Vital Sign Reading Time Taken Comments Blood Pressure 157/61 09/29/2021 4:56 PM EDT Pulse 60 09/29/2021 4:56 PM EDT Temperature 36.5 C (97.7 F) 09/29/2021 4:56 PM EDT Respiratory Rate 18 09/29/2021 2:20 PM EDT Oxygen Saturation 95% 09/29/2021 4:56 PM EDT Inhaled Oxygen Concentration - - Weight 99.7 kg (219 lb 11.2 oz) 09/29/2021 6:00 AM EDT Height 177.8 cm (5' 10 ) 09/19/2021 12: 54 PM EDT Body Mass Index 31.52 09/19/2021 12:54 PM EDT Plan of Treatment Health Maintenance Due Date Last Done Comments BLOOD PRESSURE 1942 DEPRESSION SCREENING 1954 RSV VACCINE (1 - 1-dose 75+ series) 2017 Adult Td,Tdap Booster 09/22/2020 09/22/2010 , 03/14/2009, 04/25/2000 CREATININE LEVEL 09/29/2022 09/29/2021, , 09/27/2021, Additional history exists POTASSIUM LEVEL 09/29/2022 09/29/2021, 09/11, 09/27/2021, Additional history exists INFLUENZA VACCINE (#1) 2024 , 12/25/2019, 01/16/2019, Additional history exists COVID-19 VACCINE (2024- season) 2024 02/11/2021, 05/20/2020, 04/22/2020 PNEUMOCOCCAL VACCINES (50+ years) Completed 12/25/2015, 10/01/2014 ZOSTER VACCINES Completed 11/09/2017, 04/15, 10/12/2010, Additional history exists HEPATITIS A VACCINES Aged Out No long er eligible based on patient's age to complete this topic HIB VACCINES Aged Out No longer eligi ble based on patient's age to complete this topic MENINGOCOCCAL VACCINES (ACWY) Aged Out No longer eligible based on patient's age to complete this topic MENINGOCOCCAL VACCINES (B) Aged Out N o longer eligible based on patient's age to complete this topic Medical Devices Implanted Type Area Dental Billing Specialist Device Identifier Shelf Expiration Date Model / Serial / Lot Endovive Standard Peg Kit Implanted:Qty: 1 on 09/25/2021 by Tosha Catherine MD at [facility] N/A: Stomach Implisit 12/28/2021 [id number] / / [id number] Procedures Procedure Name Priority Date/Time Associated Diagnosis Comments BASIC METABOLIC PANEL Routine 09/29/2021 6:00 AM EDT from Last 3 Months or Most Recently Relevant to Health Maintenance Results * (ABNORMAL) Basic metabolic panel (09/29/2021 6:00 AM EDT) SODIUM 142 133 - 146 mmol/L [facility] CHLORIDE 110(H) 96 - 108 mmol/L [facility] POTASSIUM 3.5 3.3 - 5.1 mmol/L [facility] CO2 23 21 - 35 mmol/L [facility] BUN 17 6 - 19 mg/dL [facility] CREATININE 1.10 0.5 - 1.5 mg/dL [facility] GLUCOSE 122(H) 70 - 99 mg/dL [facility] CALCIUM 9.0 8.4 - 10.3 mg/dL [facility] EGFR 68 >59 mL/min/1.7 3m2 [facility] Comment:Estimated glomerular filtration rate calculated using the CKD-EPI refit equation. ANION GAP 13 10 - 20 mmol/L [facility] Blood 09/29/2021 6:00 AM EDT 09/29/2021 7:01 AM EDT Norma White MD LAB BLOOD ORDERABLES Final Result [facility] [address] [place] [address] from Last 3 Months or Most Recently Relevant to Health Maintenance Insurance MEDICARE PART A & B [facility] MEDICARE SUPPLEMENT MEDICARE PART A & B Member Subscriber Plan / Payer (Ef fective 2007-) Name:Kang Wilder Member ID:[id number] Relation to Subscriber:Self Name:Kang Wilder Subscriber ID:[id number] Payer ID:[id number] Group ID:Not on file Type:Medicare Address: [employer] [address] [facility] MEDICARE SUPPLEMENT MEDICARE PART A & B [facility] MEDICARE SUPPLEMENT MEDICARE PART A & B MEDICARE SUPPLEMENT MEDICARE PART A & B MEDICARE SUPPLEMENT MEDICARE PART A & B [facility] MEDICARE SUPPLEMENT MEDICARE PART A & B [facility] MEDICARE SUPPLEMENT MEDICARE PART A & B [facility] MEDICARE SUPPLEMENT MEDICARE PART A & B [facility] MEDICARE SUPPLEMENT Advance Directives For more information, please contact: [phone] (9AM - 5PM [facility], Tuesday-Tuesday) Documents on File Type Date Recorded Patient Certified Recreational Therapist Expl anation Healthcare Proxy 09/30/2021 12:49 PM MOLST 09/30/2021 12:49 PM * DNR/DNI (No CPR/No Intubation) (Latest Code Status on File) Date Activated Date Inactivated Comments 09/19/2021 1:40 PM Question Answer Comments Code Status Confirmed With: Patient Care Teams Intelligence Analyst Relationship Specialty Start Date End Date Matthias Rogel MD [address] [place] [id number] PCP - General 03/17/17 Additional Source Comments The information contained in this document represents components of the legal health record. It is not the complete legal health record.[facility]
--- OUTSIDE RECORDS SUMMARY | 2024-12-09 11:23 | XMS_ITS | Encounter Summary ---
Author Organization [facility] Address [address] [place] [address] Phone Care Team Providers Care Film Archivist Name Role Phone Matthias Rogel MD Primary Care Provider + Encounter Details Date Type Department Care Team (Latest Contact Info) Description 08/23/2017 Transcribe Orders [facility] [address] [place] [phone] Cliff Izquierdo MD [address] [place] [address], [address] [address] [email or web address] Gross hematuria (Primary Dx) Social History Tobacco Use Types Packs/Day Years [...] on file documented as of this encounter Results * (ABNORMAL) Creatinine/eGFR (08/23/2017 9:24 AM EDT) CREATININE 1.90(H) 0.5 - 1.5 mg/dL [facility] EGFR 34(L) >59 mL/min/1.7 3m2 [facility] Comment:If patient is black, multiply result by 1.159. Estimated glomerular filtration rate calculated using the CKD-EPI equation. Blood 08/23/2017 9:24 AM EDT 08/23/2017 9:29 AM EDT us Cliff Izquierdo MD LAB BLOOD ORDERABLES Final Resu lt Performing Organization Address City/[facility]/ZIP Co de Phone Number [address] [address] * (ABNORMAL) BUN (08/23/2017 9:24 AM EDT) BUN 34(H) 6 - 19 mg/dL [facility] Blood 08/23/2017 9:24 AM EDT 08/23/2017 9:29 AM EDT us Cliff Izquierdo MD LAB BLOOD ORDERABLES Final Resu lt Performing Organization Address City/[facility] Co de Phone Number [address] [address] documented in this encounter Visit Diagnoses Diagnosis Gross hematuria- Primary documented in this encounter Care Teams Film Archivist Relationship Specialty Start Date End Date Matthias Rogel MD [address] [place] [phone] PCP - General 03/17/17 documented as of this encounter Additional Source Comments The information contained in this document represents components of the legal health record. It is not the complete legal health record.[facility]
--- OUTSIDE RECORDS SUMMARY | 2024-12-09 11:23 | XMS_ITS | Encounter Summary ---
Author Organization [facility] Address [address] [facility] [address] [place] [address] Phone Care Team Providers Care Energy Assistant Name Role Phone Matthias Rogel MD Primary Care Provider + Encounter Details Date Type Department Care Team (Late st Contact Info) Description 09/19/2021 Procedure Pass [facility], Ct Scan - [address] [address] Social History Tobacco Use Types Packs/Day Years [...] 1:00 PM EDT Sabi Henson RN * [place] Suicide Severity Rating Scale (Screener/Recent Self-Report) Question [...] on filedocumented in this encounter Care Teams Energy Assistant Relationship Specialty Start Date End Date Matthias Rogel MD [address] [place] [address] PCP - General 03/17/17 documented as of this encounter Additional Source Comments The information contained in this document represents components of the legal health record. It is not the complete legal health record.[facility]
--- OUTSIDE RECORDS SUMMARY | 2024-12-09 11:23 | XMS_ITS | Encounter Summary ---
Author Organization [facility] Address [address] [place] [address] Phone Care Team Providers Care Rope Maker Name Role Phone Matthias Rogel MD Primary Care Provider + Reason for Referral * MRI/CAT Scan - Closed Specialty Diagnoses / Procedures Referred By Contac t Referred To Contact Radiology Diagnoses Spinal stenosis of lumbar region with neurogenic claudication Procedures MRI Lumbar Spine Jocy Collins PA Phone: tel: fax: [email or web address] Referral ID Status Reason Start Date Expiration Date Visits Re quested Visits Authorized [id number] Closed 08/11/2017 08/11/2018 1 1 Encounter Details Date Type Department Care Team (Latest Contact Info) Description 08/11/2017 Ancillary Orders Virtual Department [address] [place] [address] Jocy Collins PA [address] [place] [address] [email or web address] Spinal stenosis of lumbar region with neurogenic claudication Social History Tobacco Use Types Packs/Day Years [...] documented as of this encounter Results * MRI LUMBAR SPINE (BONE) WITHOUT CONTRAST (08/18/2017 7:10 PM EDT) Anatomical Region Laterality Modality L-spine Magnetic Resonan ce 08/18/2017 7:29 PM EDT Impressions 08/18/2017 8:04 PM EDT Somewhat progressive spinal stenosis at L3-4 with greater traction changes of nerve roots. Severe foraminal narrowing on the left at L3-4 and on the right L4-5 appears fairly similar to prior examination. Extensive spondylotic changes elsewhere but with only minimal if any progression as above-described. POS - [id number] Edited by: Megha Cevallos on 08/18/2017 7:47 PM Narrative 08/18/2017 8:04 PM EDT HISTORY: Spinal stenosis with neurogenic claudication. Worsening low back pain worse on the right. COMPARISON: October 15, 2015 and October 21, 2014. TECHNIQUE: Exam performed on a 1.5 Corrina high-field MRI scanner. Sagittal T1, T2 and STIR, axial T1 and T2 sequences were obtained. FINDINGS: T11-12: Degenerative disc disease with anterior spurring. Minimally progressive disc height loss since prior. No progressive canal stenosis or neural foraminal impingement. Slight right-sided hypertrophic changes are similar. T12-L1 and L1-2 on sagittal views: Minor facet degenerative change. No significant disc abnormality. No canal or foraminal stenosis suggested. L2-3: Degenerative disc disease with mild disc bulging and right greater than left facet arthropathy appears similar to prior. No progressive canal or foraminal stenosis. L3-4: Advanced degenerative disc disease with disc ridge complex again noted. There is also bilateral facet arthropathy, worse on the left. Degree of canal stenosis appears similar to slightly worse and there is slightly more redundancy at nerve roots above this level suggesting traction changes and mass effect on the nerve roots at this level. There is prominent left-sided bony neural foraminal encroachment from both the uncovertebral spurring and facet arthropathy. The appearance is similar to prior, however. Much milder narrowing of the right L3 foramen is similar. L4-5: Degenerative disc disease and right greater than left facet arthropathy again noted. This again leads to prominent mass effect on the right L4 nerve root in its foramen. It may be mildly progressive. There is bilateral lateral recess impingement, more prominent appearing on the right and mild central canal stenosis overall. L5-S1: Degenerative disc disease with near complete obliteration of disc space and disc ridge complex formation appears similar. There is also bilateral facet arthropathy, right greater than left which also appears fairly similar. This again leads to foraminal impingement with mass effect on the right L5 nerve root more than left. This does not appear significantly progressive, however. There is active endplate degenerative marrow signal across L3-4 and small amounts of edema-type signal are present within the disc interspaces at L3-4 and L4-5, likely related to the degenerative changes and fluid but without bony destruction or significant change to suggest an infectious process. No compression deformity or metastatic/myeloma-type marrow signal change appreciated. No signal abnormality identified in the visualized lower thoracic cord. Study is not tailored for evaluation of regional soft tissues but no soft tissue masses of clear concern are identified. There is suggestion of a cyst in the left kidney. The patient is noted to be scheduled for a CT abdomen and pelvis study on August 26 which can evaluate this region. This is not clearly suspicious based on current MR appearance but is not well-imaged. Procedure Note Zackery Burton MD - 08/18/2017 HISTORY: Spinal stenosis with neurogenic claudication. Worsening low backpain worse on the right. COMPARISON: October 15, 2015 and October 21, 2014. TECHNIQUE: Exam performed on a 1.5 Corrina high-field MRI scanner. SagittalT1, T2 and STIR, axial T1 and T2 sequences were obtained. FINDINGS: T11-12: Degenerative disc disease with anterior spurring. Minimallyprogressive disc height loss since prior. No progressive canal stenosis orneural foraminal impingement. Slight right-sided hypertrophic changes aresimilar. T12-L1 and L1-2 on sagittal views: Minor facet degenerative change. Nosignificant disc abnormality. No canal or foraminal stenosis suggested. L2-3: Degenerative disc disease with mild disc bulging and right greaterthan left facet arthropathy appears similar to prior. No progressive canalor foraminal stenosis. L3-4: Advanced degenerative disc disease with disc ridge complex againnoted. There is also bilateral facet arthropathy, worse on the left.Degree of canal stenosis appears similar to slightly worse and there isslightly more redundancy at nerve roots above this level suggestingtraction changes and mass effect on the nerve roots at this level. Thereis prominent left-sided bony neural foraminal encroachment from both theuncovertebral spurring and facet arthropathy. The appearance is similar toprior, however. Much milder narrowing of the right L3 foramen issimilar. L4-5: Degenerative disc disease and right greater than left facetarthropathy again noted. This again leads to prominent mass effect on theright L4 nerve root in its foramen. It may be mildly progressive. There isbilateral lateral recess impingement, more prominent appearing on theright and mild central canal stenosis overall. L5-S1: Degenerative disc disease with near complete obliteration of discspace and disc ridge complex formation appears similar. There is alsobilateral facet arthropathy, right greater than left which also appearsfairly similar. This again leads to foraminal impingement with mass effecton the right L5 nerve root more than left. This does not appearsignificantly progressive, however. There is active endplate degenerative marrow signal across L3-4 and smallamounts of edema-type signal are present within the disc interspaces atL3-4 and L4-5, likely related to the degenerative changes and fluid butwithout bony destruction or significant change to suggest an infectiousprocess. No compression deformity or metastatic/myeloma-type marrow signalchange appreciated. No signal abnormality identified in the visualizedlower thoracic cord. Study is not tailored for evaluation of regional soft tissues but no softtissue masses of clear concern are identified. There is suggestion of acyst in the left kidney. The patient is noted to be scheduled for a CTabdomen and pelvis study on August 26 which can evaluate this region. Thisis not clearly suspicious based on current MR appearance but is notwell-imaged. IMPRESSION: Somewhat progressive spinal stenosis at L3-4 with greater traction changesof nerve roots. Severe foraminal narrowing on the left at L3-4 and on theright L4-5 appears fairly similar to prior examination. Extensivespondylotic changes elsewhere but with only minimal if any progression asabove-described. 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 It is not the complete legal health record.[facility]
--- OUTSIDE RECORDS SUMMARY | 2024-12-09 11:23 | XMS_ITS | Encounter Summary ---
Author Organization 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 Name Role Phone Matthias Rogel MD Primary Care Provider + Reason for Referral * MRI/CAT Scan - Closed Specialty Diagnoses / Procedures Referred By Fran duarte Referred To Contact Radiology Diagnoses Gross hematuria Procedures CT Abdomen/Pelvis Noemi Sy PA Phone: tel: fax: [email or web address] Referral ID Status Reason Start Date Expiration Date Visits Re quested Visits Authorized [id number] Closed 07/29/2017 07/29/2018 1 1 Encounter Details Date Type Department Care Team (Late st Contact Info) Description 07/29/2017 Ancillary Orders Virtual Department [address] [place] [address] Noemi Sy PA [address] [place] [address] [email or web address] Gross hematuria Social History Tobacco Use Types Packs/Day Years [...] documented as of this encounter Results * CT ABDOMEN/PELVIS WITHOUT CONTRAST (08/26/2017 8:54 AM EDT) Anatomical Region Laterality Modality Abdomen, Pelvis Computed Tomogra phy 08/26/2017 9:01 AM EDT Impressions 08/26/2017 9:12 AM EDT 1. No evidence of nephrolithiasis or renal obstruction. 2. Bilateral renal atrophy and small Bosniak 1 and 2 renal cysts. 3. Multiple additional findings as outlined. TOTAL CTDIvol: 18.6 mGy POS - [id number] Narrative 08/26/2017 9:12 AM EDT COMPARISON: No prior imaging for comparison. TECHNIQUE: CT abdomen and pelvis without oral or IV contrast. Multiplanar reformatted images generated. Automated exposure control utilized. CT ABDOMEN AND PELVIS FINDINGS: Lung bases/heart: Heart is not imaged. Imaged lung bases are clear. Spleen: Imaged spleen is normal. Liver: Imaged liver is normal. Gallbladder/biliary tree: Gallbladder is surgically absent. No pathologic biliary dilatation Pancreas: Mild diffuse atrophy. Small coarse calcifications in the tail which may be secondary to chronic pancreatitis. Adrenal glands: Normal. Vasculature: Moderate diffuse arterial calcified plaque. No AAA. Genitourinary: Mild bilateral renal atrophy. No hydronephrosis. Duplicated left collecting system. Mild bilateral perinephric edema. No fluid collections. No radiopaque urinary tract calculi. 1.9 cm right upper renal pole hypodensity with Hounsfield units measuring 12 consistent with a cyst. 1.6 cm left upper renal pole hypodensity with Hounsfield units measuring 6 consistent with a cyst. There is a punctate calcification dependently within the posterior cyst versus a wall calcification. Bladder is normal. Borderline prostatomegaly. Gastrointestinal tract: Small hiatal hernia. Imaged stomach is normal. Small bowel and appendix are normal. Mild distal descending colon diverticulosis. Peritoneum/retroperitoneum: No lymphadenopathy, ascites or fluid collections. Musculoskeletal: Small umbilical hernia. Severe lumbar spine degenerative disc disease and facet arthropathy with multilevel lumbar spinal foraminal stenosis from L3-4 to L5-S1. No compression deformities. Mild bilateral hip osteoporosis. Small nonaggressive sclerotic lesions in the right femoral head and a 1.3 cm lower right sacral sclerotic lesion. These may represent incidental bone islands. Further imaging evaluation should be based on risk factors. No destructive lytic or blastic bone lesions. Procedure Note Emily Cramer MD - 08/26/2017 COMPARISON: No prior imaging for comparison. TECHNIQUE: CT abdomen and pelvis without oral or IV contrast. Multiplanarreformatted images generated. Automated exposure control utilized. CT ABDOMEN AND PELVIS FINDINGS: Lung bases/heart: Heart is not imaged. Imaged lung bases are clear. Spleen: Imaged spleen is normal. Liver: Imaged liver is normal. Gallbladder/biliary tree: Gallbladder is surgically absent. No pathologicbiliary dilatation Pancreas: Mild diffuse atrophy. Small coarse calcifications in the tailwhich may be secondary to chronic pancreatitis. Adrenal glands: Normal. Vasculature: Moderate diffuse arterial calcified plaque. No AAA. Genitourinary: Mild bilateral renal atrophy. No hydronephrosis.Duplicated left collecting system. Mild bilateral perinephric edema. Nofluid collections. No radiopaque urinary tract calculi. 1.9 cm rightupper renal pole hypodensity with Hounsfield units measuring 12 consistentwith a cyst. 1.6 cm left upper renal pole hypodensity with Hounsfieldunits measuring 6 consistent with a cyst. There is a punctatecalcification dependently within the posterior cyst versus a wallcalcification. Bladder is normal. Borderline prostatomegaly. Gastrointestinal tract: Small hiatal hernia. Imaged stomach is normal.Small bowel and appendix are normal. Mild distal descending colondiverticulosis. Peritoneum/retroperitoneum: No lymphadenopathy, ascites or fluidcollections. Musculoskeletal: Small umbilical hernia. Severe lumbar spine degenerativedisc disease and facet arthropathy with multilevel lumbar spinal foraminalstenosis from L3-4 to L5-S1. No compression deformities. Mild bilateralhip osteoporosis. Small nonaggressive sclerotic lesions in the rightfemoral head and a 1.3 cm lower right sacral sclerotic lesion. These mayrepresent incidental bone islands. Further imaging evaluation should bebased on risk factors. No destructive lytic or blastic bone lesions. IMPRESSION: 1. No evidence of nephrolithiasis or renal obstruction. 2. Bilateral renal atrophy and small Bosniak 1 and 2 renal cysts. 3. Multiple additional findings as outlined. TOTAL CTDIvol: 18.6 mGy POS - [id number] Noemi LANDEROS IMG CT ABD/PELVIS Final Res ult documented in this encounter Visit Diagnoses Diagnosis Gross hematuria Gross hematuria documented in this encounter Care Teams Grain Trader Relationship Specialty Start Date End Date Matthias Rogel MD [address] [place] [id number] PCP - General 03/17/17 documented as of this encounter Additional Source Comments The information contained in this document represents components of the legal health record. It is not the complete legal health record.[facility]
[2024-12-09 12:32] LABS: Troponin-I High Sensitivity 26.8 ng/L (<3.5-35.0)
--- NOTE | 2024-12-09 13:18 | PM.IMHP ---
History of Present Illness Date of Service: 12/09/24 Chief Complaint: Hemoptysis 84-year-old man with a history of atrial fibrillation, stroke, dysphagia presented to the ER with complaints of coughing up blood. Patient reported that he was drinking something and felt a ?pop? in his throat and later had a significant amount of bright red blood out of his mouth. He denied heavy alcohol and reported that he drinks occasionally mostly in the summertime in his last drink was in August. He is on a blood thinner for atrial fibrillation. He did have episodes in the ER also of hemoptysis and was given TXA by EMS. Patient denies any chest pain, shortness breath, nausea, vomiting, diarrhea, sick contacts, recent travel. He is noted to have mildly elevated white blood cell count, hemoglobin hematocrit stable, mildly elevated creatinine from baseline, mild transaminitis. Chest CTA with no evidence of pulmonary embolism, some debris seen within the trachea and left lower lobe bronchus suggesting aspiration, abdominal CT showing mild dilation of the crossing duodenum without evidence of obstruction or lesion. In the ER patient received a dose of octreotide, IV Pepcid, TXA, Rocephin, doxycycline. Patient will be admitted for further management and treatment of hemoptysis and aspiration pneumonia. Review of Systems Review of Systems: Denies any recent fever chills or decrease in appetite respiratory See HPI cardiovascular Denied chest pain gastrointestinal denies any dysphagia abdominal pain nausea vomiting or diarrhea genitourinary denies any dysuria frequency or hematuria musculoskeletal denies any joint pain or swelling neuropsych denies any weakness or seizures all other systems reviewed are negative [facility] Medical History BPH (benign prostatic hyperplasia) Afib HTN (hypertension) Acute CVA (cerebrovascular accident) Social History Household Members: None Housing: House Do you presently have visiting nurse or other home services: Yes ([facility] services and has [place] services for transportation) Alcohol intake: current Alcohol intake frequency: holidays/special occasions only Alcohol type: beer Patient Tobacco Use Status: Former Tobacco user Tobacco use type: Cigarette Cigarette Packs Per Day: 1 Cigarettes Per Day: 20.0 Smoked in Last 30 Days: No e-Cigarette/Vaping Use: Never Used Second Hand Smoke Exposure: No Use of substances other than those prescribed or required for medical reasons: No Advance Directives: No Advance Directives Information Provided: Yes service: Yes Meds Allergies Allergy/AdvReac Type Severity Reaction Status Date / Time amlodipine Allergy Unknown Verified 12/09/24 09:53 diltiazem Allergy Unknown Verified 12/09/24 09:53 Penicillins Allergy Unknown Verified 12/09/24 09:53 spironolactone Allergy Unknown Verified 12/09/24 09:53 Active Medications: Current Medications Doxycycline Hyclate 100 mg/ (Sodium Chloride) 250 mls @ 166.67 mls/hr IV ONCE ONE Stop: 12/09/24 13:19 Last Admin: 12/09/24 12:12 Dose: 166.67 mls/hr Home Medications ?Medication ?Instructions ?Recorded ?Confirmed ?Last Taken ?Type allopurinol 100 mg tablet 100 mg PO DAILY 03/14/24 03/14/24 Unknown History apixaban 2.5 mg tablet (Eliquis) 2.5 mg PO BID 03/14/24 03/14/24 Unknown History chondroitin sulfate A sodium 400 400 mg PO DAILY 03/14/24 03/14/24 Unknown History mg capsule doxazosin 2 mg tablet 6 mg PO BID 03/14/24 03/14/24 Unknown History duloxetine 20 mg capsule,delayed 20 mg PO DAILY 03/14/24 03/14/24 Unknown History release finasteride 1 mg tablet 1 mg PO DAILY 03/14/24 03/14/24 Unknown History multivitamin 1 tab PO DAILY 03/14/24 03/14/24 Unknown History simethicone 80 mg chewable tablet 80 mg PO DAILY 03/14/24 03/14/24 Unknown History thiamine HCl (vitamin B1) 100 mg 100 mg PO DAILY 03/14/24 03/14/24 Unknown History tablet vitamin E 268 mg (400 unit) capsule 268 mg PO DAILY 03/14/24 03/14/24 Unknown History Physical Exam Vital Signs and Narrative: Vital Signs: Last Vital Signs Temp 99.2 F 12/09/24 09:46 Pulse 82 12/09/24 12:11 Resp 20 12/09/24 12:11 BP 125/68 12/09/24 12:11 Pulse Ox 93 12/09/24 12:11 O2 Del Method Nasal Cannula 12/09/24 12:11 O2 Flow Rate 6 12/09/24 12:11 FiO2 35 12/09/24 10:07 BMI result Body Mass Index 37.9 Appearing in no acute distress head is normocephalic atraumatic eyes pupils are PERRLA sclera is anicteric mouth throat mucous membranes are intact and moist neck is supple no lymphadenopathy, no JVD noted lung sounds are clear to auscultation heart regular rate rhythm, clear S1, S2 positive bowel sounds, abdomen is soft, nontender neuro patient is alert x3, no focal deficits Results Labs 12/09/24 10:01 12/09/24 10:01 Labs: Laboratory Results - last 24 hr 12/09/24 12/09/24 12/09/24 10:01 10:03 10:05 MCV 94.8 MCH 31.1 MCHC 32.9 RDW 13.2 Plt Count 288 D MPV 10.2 Immature Gran % (Auto) 0.8 H Neut % (Auto) 71.9 Lymph % (Auto) 15.9 L Shannon % (Auto) 7.9 Eos % (Auto) 2.9 Baso % (Auto) 0.6 Lymph # (Auto) 2.7 Shannon # (Auto) 1.4 H Eos # (Auto) 0.5 H Baso # (Auto) 0.1 Abs Immat Gran (auto) 0.14 H Absolute Neuts (auto) 12.3 H Absolute Nucleated RBC 0.000 Nucleated RBC % (auto) 0.0 PT 22.4 H INR 2.0 H Anion Gap 14 Estim Creat Clear Calc 33.1 Estimated GFR 40 Random Glucose 145 H Lactic Acid Calcium 9.6 D Magnesium 1.8 Total Bilirubin 0.7 AST 49 H ALT 41 H Alkaline Phosphatase 117 Troponin I High Sens 20.9 Total Protein 7.1 Albumin 3.3 L Stool Occult Blood NEGATIVE Blood Type O Positive Antibody Screen NEGATIVE Crossmatch See Detail 12/09/24 12/09/24 10:31 12:03 MCV MCH MCHC RDW Plt Count MPV Immature Gran % (Auto) Neut % (Auto) Lymph % (Auto) Shannon % (Auto) Eos % (Auto) Baso % (Auto) Lymph # (Auto) Shannon # (Auto) Eos # (Auto) Baso # (Auto) Abs Immat Gran (auto) Absolute Neuts (auto) Absolute Nucleated RBC Nucleated RBC % (auto) PT INR Anion Gap Estim Creat Clear Calc Estimated GFR Random Glucose Lactic Acid 1.7 Calcium Magnesium Total Bilirubin AST ALT Alkaline Phosphatase Troponin I High Sens 26.8 Total Protein Albumin Stool Occult Blood Blood Type Antibody Screen Crossmatch Assessment and Plan (1) Paroxysmal atrial fibrillation: Status: Acute (2) Upper gastrointestinal bleed: Status: Acute Plan 84 year old man admitted with Hemoptysis and aspiration pneumonia Aspiration pneumonia Start IV Zosyn Speech therapy consult for swallow evaluation NPO for now IV fluids while NPO oxygen therapy to keep o2 sat > 90% Hemoptysis ? related to aspiration pna vs varicies (hx of ETOH) but unlikely vs alveolar hemorrhage Stable HH no further episodes while inpatient non cirrhotic liver on abd ct GI consultation Follow HH IV PPI Hx of stroke with chronic dysphagia speech eval MBSS keep NPO for now Hx of alcohol abuse normal bilirubin, mildly elevated ast/alt non cirrhotic liver on abd ct denies daily alcohol abuse, reports last drink in August 2024 PAFIB hold eliquis due to hemoptysis continue BB BPH continue home medications Obesity. BMI 37.9 Discussed importance of weight management as this may be contributing to worsening of other comorbidities DVT prophylaxis with SCD boot due to Hemoptysis Full code Quality Stroke Does the patient have a stroke diagnosis?: No VTE Prior VTE?: No VTE Risk Level:: Medical - moderate - high VTE Device Contraindication: N/A - Device Ordered VTE Drug Contraindication: Treatment Not Indicated
[2024-12-09] MEDS: Dextrose 5 % and Lactated Ring 1,000 ML 80 ML IVCONT ×2 (14:01→17:41)
[2024-12-09 15:03] LABS: Appearance Urine Clear; Glucose Urine UA Negative (Negative); PH 5.5 (5.0-9.0); Specific Gravity - Urine >= 1.030 (1.005-1.025); UMIC TRIGGER UACC YES
[2024-12-09 15:25] LABS: NT Pro B Type Natriuretic Pept 770.2 pg/mL (<300)
--- NOTE | 2024-12-09 18:48 | PHA.MEDREC ---
Addendum entered by Jj Holland PharmD 12/09/24 19:13: [facility] REVIEWED. Used medication list from [place] to confirm with patient. Original Note: Pharmacy Consult ? Medication Reconciliation Pharmacy has completed the medication reconciliation. Confirmed medication list with patient. Patient claims they took all non-prn medications yesterday (both morning and evening doses). Patient states they take a collagen supplement at home. Patient takes 5 mg eliquis split into half tab to make 2.5 mg twice a day. Patient last took half tab of eliquis yesterday night.
[2024-12-10] VITALS (7 sets, daily range): BP systolic 133–168; BP diastolic 63–76; PULSE 65–72; RESP 16–20; TEMP 36.1–37.2; O2SAT 89–94
[2024-12-10] MEDS: Dextrose 5 % and Lactated Ring 1,000 ML 80 ML IVCONT ×2 (04:21→16:07)
--- NOTE | 2024-12-10 06:23 | PM.GICN ---
History of Present Illness Data of Consult Service Date: 12/10/24 Requesting physician: Mary Aguillon Primary Care Provider: Matthias Rogel MD [facility] Reason for consult: ? GI bleed This is an 84 y.o M with PMH atrial fib on apixaban, hx of stroke, HTN who presented to the hospital for hemoptysis/epistaxis. History was obtained from the pt who states he was in hsi usual state of health up until yest afternoon when he felt a sudden foreign body sensation in his throat and ended up coughing a large amount of fresh blood. He also simultaneously noted blood coming through his nose. He is unsure if the blood went up his nose or if he was spitting blood from the nose bleed. He immediately called 911 and was then brought to the ER. Has not had any recurrnece of bleeding since then. Pt very clearly reports he did not retch or vomit blood. He also does not report any abd pain or change in stools. In the Er he was noted to have stable vitals. H/H slightly down from his baseline. Stool FOBT negative. Imaging reviewed - consistent with debris in left LL bronchus and possible LLL PNA. Review of Systems Review of Systems: Yes all other systems are reviewed and are negative PMFSH Past Medical History Medical History BPH (benign prostatic hyperplasia) Afib HTN (hypertension) Acute CVA (cerebrovascular accident) Social History Social History Household Members: Unknown / Unable to assess Housing: House Do you presently have visiting nurse or other home services: No Alcohol intake: current Alcohol intake frequency: holidays/special occasions only Alcohol type: beer Comment: 1:1 sitter. Patient Tobacco Use Status: Former Tobacco user Tobacco use type: Cigarette Cigarette Packs Per Day: 1 Cigarettes Per Day: 20.0 Smoked in Last 30 Days: No e-Cigarette/Vaping Use: Never Used Second Hand Smoke Exposure: No Use of substances other than those prescribed or required for medical reasons: No Currently Displaying Signs/Symptoms of Drug Intoxication Withdrawal: No Have you been hit, kicked, punched, or otherwise hurt by someone within the past year? If so, by whom?: No Do you feel safe in your current relationship?: No Current Relationship Is there a partner from a previous relationship who is making you feel unsafe now?: No Are you made to feel afraid or neglected: No Advance Directives: No Advance Directives Information Provided: Yes Do you have a plan to hurt others: No Plan Recently lost weight without trying: No Nutrition Risks: On aspiration precautions Poor oral hygiene: No service: Yes Meds Allergies Allergy/AdvReac Type Severity Reaction Status Date / Time amlodipine Allergy Unknown Verified 12/09/24 09:53 diltiazem Allergy Unknown Verified 12/09/24 09:53 Penicillins Allergy Unknown Verified 12/09/24 09:53 spironolactone Allergy Unknown Verified 12/09/24 09:53 Active Medications: Current Medications Acetaminophen (Acetaminophen 325 Mg Tablet) 650 mg PO Q6H PRN PRN Reason: Pain, Mild 1-3,fever,headache Calcium Carbonate (Calcium Carbonate 750 Mg Tab.Chew) 750 mg PO Q4H PRN PRN Reason: Heartburn Dextrose/Lactated Ringer's (D5lr) 1,000 mls @ 80 mls/hr IVCONT .[id number] [facility] Last Admin: 12/10/24 04:21 Dose: 80 mls/hr Piperacillin Sod/Tazobactam (Sod 3.375 gm/ Sodium Chloride) 50 mls @ 100 mls/hr IV Q6H [facility] Last Infusion: 12/10/24 04:15 Dose: Infused Magnesium Hydroxide (Milk Of Magnesia 30 Ml Oral.Susp) 30 ml PO DAILY PRN PRN Reason: Constipation Melatonin (Melatonin 3 Mg Tablet) 6 mg PO BEDTIME PRN PRN Reason: Insomnia Pantoprazole Sodium (Pantoprazole Sodium 40 Mg/10 Ml Vial) 40 mg IVPUSH DAILY@0630 [facility] Sodium Chloride (0.9 % Sodium Chloride Flush 3 Ml Syringe) 3 ml IVFLUSH QSHIFT [facility] Last Admin: 12/10/24 01:44 Dose: Not Given Home Medications ?Medication ?Instructions ?Recorded ?Confirmed ?Last Taken ?Type allopurinol 100 mg tablet 100 mg PO DAILY 03/14/24 12/09/24 12/08/24 History doxazosin 2 mg tablet 6 mg PO BID 03/14/24 12/09/24 12/08/24 History thiamine HCl (vitamin B1) 100 mg 100 mg PO DAILY 01/04/0712/09/24 12/08/24 History tablet acetaminophen 500 mg tablet 500 mg PO BEDTIME PRN Pain 12/09/24 12/09/24 Unknown History amlodipine 5 mg tablet 5 mg PO DAILY 12/09/24 12/09/24 12/08/24 History apixaban 5 mg tablet (Eliquis) 2.5 mg PO BID 12/09/24 12/09/24 12/08/24 History hydrochlorothiazide 12.5 mg capsule 12.5 mg PO DAILY 12/09/24 12/09/24 12/08/24 History ketoconazole 2 % shampoo 1 appl topical 2XW PRN Scalp rash 12/09/24 12/09/24 Unknown History ketoconazole 2 % topical cream 1 appl topical BID PRN Seborrheic 12/09/24 12/09/24 Unknown History Dermatitis loperamide 2 mg tablet 2 mg PO DAILY PRN Diarrhea 12/09/24 12/09/24 Unknown History naproxen sodium 220 mg tablet 220 mg PO DAILY PRN Pain 12/09/24 12/09/24 Unknown History omega-3 fatty acids-fish oil 684 1 cap PO DAILY 12/09/24 12/09/24 12/08/24 History mg-1,200 mg capsule,delayed release triamcinolone acetonide 0.1 % 1 appl topical DAILY PRN Itching 12/09/24 12/09/24 Unknown History topical cream Physical Exam Exam: Exam: Elderly gent mild dysphasia dried mucous membranes no overt resp distress abd soft nontender nondistended Vital Signs: Vital Signs: Last Vital Signs Temp 99.0 F 12/10/24 04:00 Pulse 72 12/10/24 04:00 Resp 17 12/10/24 04:00 BP 168/72 H 12/10/24 04:00 Pulse Ox 94 12/10/24 04:00 O2 Del Method Room Air 12/10/24 04:00 O2 Flow Rate 2 12/10/24 00:00 FiO2 35 12/09/24 10:07 BMI result Body Mass Index 39.0 Results Labs 12/10/24 08:33 12/10/24 08:33 Labs: Short CBC 12/09/24 Range/Units 10:01 WBC 17.1 H (4.8-10.8) X10*3/uL Hgb 13.7 L (14.0-18.0) g/dl Hct 41.7 L (42.0-52.0) % Plt Count 288 D (160-400) X10*3/uL BMP 12/09/24 10:01 Sodium 144 Potassium 3.5 Chloride 108 Carbon Dioxide 26 BUN 31 H Creatinine 1.65 H Calcium 9.6 D Liver Function 12/09/24 Range/Units 10:01 Total Bilirubin 0.7 (0.0-1.0) mg/dL AST 49 H (5-37) U/L ALT 41 H (0-40) U/L Alkaline Phosphatase 117 (39-117) U/L Albumin 3.3 L (3.5-5.0) g/dL Urine 12/09/24 Range/Units 14:56 Urine Color Yellow Urine Appearance Clear Urine pH 5.5 (5.0-9.0) Ur Specific [place] >= 1.030 H (1.005-1.025) Urine Protein 30 (1+) H (Neg-Trace) mg/dL Urine Glucose (UA) Negative (Negative) mg/dL Assessment and Plan (1) Pneumonia: Status: Acute (2) Hypoxia: Status: Acute (3) Epistaxis: Status: Acute (4) Hemoptysis: Status: Acute Plan Based on hx provided by pt + clinical assessment, GI bleed appears less likely. Possibly had post epistaxis that he also coughed up. Will hold off endoscopic evaluation at this time but can be considered if pt has a witnessed GI source of rebleeding. Consider ENT or pulm evaluation. Thank you for allowing me to participate in his care. Please do not hesitate to reach out for questions or concerns. Procedures Date of Service Date of Service: 12/10/24
--- NOTE | 2024-12-10 08:37 | MHC.CM.PN ---
CM met with Patient at bedside.Patient was unable to recall his address and gave CM his permission to contact his Friend/HCP/Bulmaro at listed #. 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 Home/resume said services is the goal and CM has initiated and will follow for dc planning. PCP is Dr. Matthias Rogel,and Friend/Bulmaro will transport to home at dc.
[2024-12-10 08:41] LABS: MANUAL DIFF FLAG NO
[2024-12-10 08:47] LABS: Hematocrit 37.0 % (42.0-52.0); Hemoglobin 12.4 g/dl (14.0-18.0); Imm Gran Abs Auto 0.18 X10*3/uL (0.00-0.03); Imm Gran Pct Auto 1.0 % (0.0-0.4); Lymphocytes Absolute Auto 1.8 X10*3/uL (1.2-4.9); Mean Corpuscular HGB Conc 33.5 g/dl (31.0-36.0); Mean Corpuscular Hemoglobin 31.9 pg (27.0-33.0); Mean Corpuscular Volume 95.1 fL (80.0-98.0); NRBC Abs Auto 0.000 X10*3/uL (0.0-0.012); NRBC Pct Auto 0.0 /100WBC (0.0-0.2); Platelet Count 291 X10*3/uL (160-400); Red Blood Count 3.89 X10*6/uL (4.60-5.80); White Blood Count 18.1 X10*3/uL (4.8-10.8)
[2024-12-10 08:59] LABS: Anion Gap 10 (12-20); Blood Urea Nitrogen 23 mg/dL (9-16); Calcium 9.1 mg/dL (8.4-10.2); Carbon Dioxide 29 mmol/L (22-29); Chloride 111 mmol/L (96-108); Creatinine Clr Calc Pharmacy 38.2; Estimated Glomerular Filt Rate 47; Potassium 3.6 mmol/L (3.3-5.1); Sodium 146 mmol/L (135-145)
[2024-12-10] MEDS: 0.9 % Sodium Chloride Flush 3 ML SYRINGE IVFLUSH ×2 (10:36→21:34)
--- NOTE | 2024-12-10 13:13 | PC.NURSE ---
10 am pt asks this nurse for water, this nurse explained at the moment I cannot d/t pt being NPO. PT began to get aggitated and push this nurse.
--- NOTE | 2024-12-10 13:15 | PC.NURSE ---
Camera in the pts room began alarming, this nurse ran in to find pt standing up next to the bed. This nurse asked the pt where he was going, pt responded he had to pee. This nurse tried to explain to the pt he was hooked up to a condom catheter as well as IV pump and that I would need for him to sit down so I can disconnect it all. The pt grabbed this nurse by both of the arms and began shaking this nurse back and forth yelling to move out of his way. This nurse had to yell for help, and when help arrive this nurse was able to ask for someone to hand her the catheter bag that was on the opposite side of the bed as well as disconnect the pt from IV without the pt standing alone. The pt was walked to the bathroom by this nurse and a PSA.
[2024-12-10] MEDS: iohexoL 350 MG/ML 100 ML INFUS..BTL IV (15:08)
--- NOTE | 2024-12-10 17:33 | MHC.SL.SWA ---
Speech Pathologist Impression: Moderate oropharyngeal dysphagia Risk of Aspiration Due to: Hx of CVA Hx of dysphagia Poor insight Cognitive deficits Dysphasia Diet Status: [facility] NDD1 (purees) and NECTAR THICKENED Liquids. Meds Whole with Puree. Supervision, aspiration precautions, no straws. Cue pt to slow pace, reduce speaking while eating. Liquid Consistency and Strategies for Safe Swallow: Liquid Intake Recommendation: Three Points Thick Liquid Intake Strategies: Solid Food Consistency: Dietary Recommendations: Pureed (NDD1) Additional Modifications to Solid Foods: Oral Medication Intake: Whole with Puree Please contact the pharmacy regarding appropriate crushable or liquid drug formulations that are available whenever modified delivery is recommended. Compensatory Strategies and Precautions to be Taken for Safe Swallow: Supervision While Eating and Drinking for Safe Swallow: Direct Supervision (1:1) Foods to Avoid: Swallowing Recommended Treatments: Recommendation for Speech: Inpatient Speech Therapy Speech Therapy through [facility] Speech Therapy through Rehab Facility Modified Barium Swallow Study - Inpatient Comment: Pt presents with moderate oropharyngeal dysphagia, pt endorses using thickener in the past. Pt has dysarthria and cognitive deficits that are considered residuals to prior CVA. Pt coughed with thins. Pt tolerated sips of NTL and purees without overt s/s of aspiration, though oral transit, trigger of laryngeal elevation and completion of swallow were delayed. Pt would benefit from continued OPERATION AGENT intervention upon d/c to manage dysphagia. CT pending at time of eval, OPERATION AGENT to assess through MBSS when appropriate if indicated to visualize physiological mechanism of swallow. Pt in agreement with [facility] diet and POC. MD and RN notified. [facility] NDD1, meds in puree, NTL, aspiration precautions, no straws, cueing to slow pace and reduce speaking while eating. OPERATION AGENT following. 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
--- NOTE | 2024-12-10 17:47 | HO.PM.IMPN ---
Subjective Subjective Date of Service: 12/10/24 Interval History: Pleasant gentleman lying comfortably in bed. Dry lips peripherally, with expressive aphasia. No evidence of receptive aphasia on evaluation. The patient denies any new chest pain, discomfort palpitations dizziness diaphoresis. He denies any recurrence of hemoptysis/hematemesis-this is unclear at this time. The patient does reinforced that he heard a pop in his neck and subsequently had noticed blood. Further evaluation with CT neck soft tissue after discussion with Radiology. Further discussion with Gastroenterology that it would be more useful to consult pulmonology versus ENT for further clarification of etiology of bleeding. Review of Systems Review of Systems: Yes all other systems are reviewed and are negative Physical Exam Exam: Exam: General: A&O x3, oriented to time place person and situation, comfortable, no pain Cardiac: S1, S2 auscultated with no S3/4, no MRG. Well perfused. Respiratory: Normal breath sounds auscultated throughout all lung zones, without wheezing, rales. Normal rate. GI/ : No abdominal pain on palpation, no masses or distentions. MSK: Normal ambulation without pain at bony prominences or musculature Neurological: Normal neurological examination on overview, without obvious CN II-XII abnormalities. Vital Signs: Vital Signs: Last Vital Signs Temp 97.7 F 12/10/24 15:40 Pulse 71 12/10/24 15:40 Resp 16 12/10/24 15:40 BP 144/71 H 12/10/24 15:40 Pulse Ox 92 12/10/24 15:40 O2 Del Method Room Air 12/10/24 15:40 O2 Flow Rate 2 12/10/24 00:00 FiO2 35 12/09/24 10:07 BMI result Body Mass Index 39.0 Objective Data Active Medications Acetaminophen (Acetaminophen 325 Mg Tablet) 650 mg PO Q6H PRN PRN Reason: Pain, Mild 1-3,fever,headache Calcium Carbonate (Calcium Carbonate 750 Mg Tab.Chew) 750 mg PO Q4H PRN PRN Reason: Heartburn Dextrose/Lactated Ringer's (D5lr) 1,000 mls @ 80 mls/hr IVCONT .[id number] [facility] Last Admin: 12/10/24 16:07 Dose: 80 mls/hr Documented By: BETHANY Piperacillin Sod/Tazobactam (Sod 3.375 gm/ Sodium Chloride) 50 mls @ 100 mls/hr IV Q6H [facility] Last Infusion: 12/10/24 16:43 Dose: Infused Documented By: BETHANY Magnesium Hydroxide (Milk Of Magnesia 30 Ml Oral.Susp) 30 ml PO DAILY PRN PRN Reason: Constipation Melatonin (Melatonin 3 Mg Tablet) 6 mg PO BEDTIME PRN PRN Reason: Insomnia Pantoprazole Sodium (Pantoprazole Sodium 40 Mg/10 Ml Vial) 40 mg IVPUSH DAILY@0630 [facility] Last Admin: 12/10/24 06:38 Dose: 40 mg Documented By: POTTSSU Sodium Chloride (0.9 % Sodium Chloride Flush 3 Ml Syringe) 3 ml IVFLUSH QSHIFT [facility] Last Admin: 12/10/24 16:17 Dose: Not Given Documented By: BETHANY Non-Admin Reason: IV Running Labs 12/10/24 08:33 12/10/24 08:33 Labs: Laboratory Results - last 24 hr 12/10/24 08:33 MCV 95.1 MCH 31.9 MCHC 33.5 RDW 13.5 Plt Count 291 MPV 10.1 Immature Gran % (Auto) 1.0 H Neut % (Auto) 79.2 H Lymph % (Auto) 9.9 L [place] % (Auto) 7.7 Eos % (Auto) 1.7 Baso % (Auto) 0.5 Lymph # (Auto) 1.8 [place] # (Auto) 1.4 H Eos # (Auto) 0.3 Baso # (Auto) 0.1 Abs Immat Gran (auto) 0.18 H Absolute Neuts (auto) 14.4 H Absolute Nucleated RBC 0.000 Nucleated RBC % (auto) 0.0 Anion Gap 10 L Estim Creat Clear Calc 38.2 Estimated GFR 47 Random Glucose 127 H Calcium 9.1 Microbiology Microbiology Results: Microbiology 12/09/24 10:31 Blood Culture - Preliminary Blood - Venous No growth after 24 hours. 12/09/24 10:31 Blood Culture - Preliminary Blood - Venous No growth after 24 hours. Assessment and Plan (1) Paroxysmal atrial fibrillation: Status: Acute (2) SHIRA (acute kidney injury): Status: Acute (3) Hypomagnesemia: Status: Acute (4) Acute dehydration: Status: Acute (5) Pneumonia: Status: Acute (6) Acute bronchitis: Status: Acute (7) Hemoptysis: Status: Acute (8) Hypoxia: Status: Acute (9) Pleural effusion, left: Status: Acute (10) Expressive aphasia: Status: Acute (11) CVA (cerebral vascular accident): Status: Acute (12) Dehydration: Status: Acute Plan 84 year old man with a background history of atrial fibrillation on anticoagulation, CVA, expressive aphasia, dysphagia, presents with hemoptysis, admitted for evaluation of hemoptysis and aspiration pneumonia. Aspiration pneumonia Continue IV Zosyn Speech therapy consult for swallow evaluation NPO for now IV fluids while NPO oxygen therapy to keep o2 sat > 90% Hemoptysis/ hematemesis Left-sided large volume loculated pleural effusion Given non specificity of his complaints, CT neck soft tissue was pursued. Revealed lobulated and septated lipoma, right sternocleidomastoid muscle. A heterogenous nodular enlarged right thyroid lobe was also noted The patient has a concerning loculated large volume left-sided pleural effusion. Patient also has a 9 mm gas abnormality in the midline nasopharynx without a discrete mass In the setting of an aspiration pneumonia, the effusion could represent a parapneumonic effusion, or other etiologies. PLAN - gastroenterology was consulted, recommendations greatly appreciated - consulted pulmonology for further recommendations - consider ENT consultation to further determine the etiology - patient may require thoracentesis for further evaluation of the loculated left-sided pleural effusion Stable HH no further episodes while inpatient non cirrhotic liver on abd ct GI consultation Follow HH IV PPI Hx of stroke with expressive dysphagia speech eval MBSS Hx of alcohol abuse normal bilirubin, mildly elevated ast/alt non cirrhotic liver on abd ct denies daily alcohol abuse, reports last drink in August 2024 PAFIB hold eliquis due to hemoptysis continue BB BPH continue home medications Obesity. 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 Quality Stroke Does the patient have a stroke diagnosis?: No VTE Prior VTE?: No VTE Risk Level:: Medical - moderate - high VTE Device Contraindication: N/A - Device Ordered VTE Drug Contraindication: Treatment Not Indicated
[2024-12-11] MEDS: Dextrose 5 % and Lactated Ring 1,000 ML 80 ML IVCONT (03:43)
[2024-12-11 04:00] VITALS: BP 144/69; PULSE 59; RESP 17; TEMP 36.6; O2SAT 2
[2024-12-11 06:57] VITALS: BP 152/76; PULSE 62; RESP 18; TEMP 37.2; O2SAT 93
[2024-12-11] MEDS: Metoprolol Succinate ER 25 MG TAB.ER.24H PO (08:15)
[2024-12-11] MEDS: 0.9 % Sodium Chloride Flush 3 ML SYRINGE IVFLUSH ×3 (08:26→20:26)
--- NOTE | 2024-12-11 08:41 | P.CONPL_ITS ---
History of Present Illness History of Present Illness Consult date: 12/11/24 Chief complaint: Aspiration PNA Hemoptysis Narrative: This is an inpatient pulmonary consultation. The HPI is limited due to the patient has history of aphasia. This is an 84-year-old man with a history of atrial fibrillation, stroke, dysphagia presented to the ER with complaints of coughing up blood. Patient reported that he was drinking something and felt a ?pop? in his throat and later had a significant amount of bright red blood out of his mouth. He denied heavy alcohol and reported that he drinks occasionally mostly in the summertime in his last drink was in August. He is on a blood thinner for atrial fibrillation. He did have episodes in the ER also of hemoptysis and was given TXA by EMS. Patient denies any chest pain, shortness breath, nausea, vomiting, diarrhea, sick contacts, recent travel. He is not Chest CTA, personallt reviewed by me, with no evidence of pulmonary embolism, some debris seen within the trachea and left lower lobe bronchus suggesting clotted blood along wit LLL pneumonia and small loculated left sided effusion, abdominal CT showing mild dilation of the crossing duodenum without evidence of obstruction or lesion. In the ER patient received a dose of octreotide, IV Pepcid, TXA, Rocephin, doxycycline. Patient will be admitted for further management and treatment of hemoptysis and aspiration pneumonia. Review of Systems 2 Review of Systems: Denies any recent fever chills or decrease in appetite respiratory See HPI cardiovascular Denied chest pain gastrointestinal denies any dysphagia abdominal pain nausea vomiting or diarrhea genitourinary denies any dysuria frequency or hematuria musculoskeletal denies any joint pain or swelling neuropsych denies any weakness or seizures all other systems reviewed are negative Yes Unobtainable due to mental condition [facility] Past Medical History Medical History BPH (benign prostatic hyperplasia) Afib HTN (hypertension) Acute CVA (cerebrovascular accident) Social History Social History Household Members: Unknown / Unable to assess Housing: House Do you presently have visiting nurse or other home services: No Alcohol intake: current Alcohol intake frequency: holidays/special occasions only Alcohol type: beer Comment: 1:1 sitter. Patient Tobacco Use Status: Former Tobacco user Tobacco use type: Cigarette Cigarette Packs Per Day: 1 Cigarettes Per Day: 20.0 Smoked in Last 30 Days: No e-Cigarette/Vaping Use: Never Used Second Hand Smoke Exposure: No Use of substances other than those prescribed or required for medical reasons: No Currently Displaying Signs/Symptoms of Drug Intoxication Withdrawal: No Have you been hit, kicked, punched, or otherwise hurt by someone within the past year? If so, by whom?: No Do you feel safe in your current relationship?: No Current Relationship Is there a partner from a previous relationship who is making you feel unsafe now?: No Are you made to feel afraid or neglected: No Advance Directives: No Advance Directives Information Provided: Yes Do you have a plan to hurt others: No Plan Recently lost weight without trying: No Nutrition Risks: On aspiration precautions Poor oral hygiene: No service: Yes Meds Allergies Allergy/AdvReac Type Severity Reaction Status Date / Time amlodipine Allergy Unknown Verified 12/09/24 09:53 diltiazem Allergy Unknown Verified 12/09/24 09:53 Penicillins Allergy Unknown Verified 12/09/24 09:53 spironolactone Allergy Unknown Verified 12/09/24 09:53 Active Medications: Current Medications Acetaminophen (Acetaminophen 325 Mg Tablet) 650 mg PO Q6H PRN PRN Reason: Pain, Mild 1-3,fever,headache Last Admin: 12/10/24 22:11 Dose: 650 mg Amlodipine Besylate (Amlodipine Besylate 5 Mg Tablet) 5 mg PO DAILY [facility]; Protocol Last Admin: 12/11/24 08:14 Dose: 5 mg Calcium Carbonate (Calcium Carbonate 750 Mg Tab.Chew) 750 mg PO Q4H PRN PRN Reason: Heartburn Dextrose/Lactated Ringer's (D5lr) 1,000 mls @ 80 mls/hr IVCONT .[id number] [facility] Last Admin: 12/11/24 03:43 Dose: 80 mls/hr Piperacillin Sod/Tazobactam (Sod 3.375 gm/ Sodium Chloride) 50 mls @ 100 mls/hr IV Q6H [facility] Last Admin: 12/11/24 08:35 Dose: 100 mls/hr Magnesium Hydroxide (Milk Of Magnesia 30 Ml Oral.Susp) 30 ml PO DAILY PRN PRN Reason: Constipation Melatonin (Melatonin 3 Mg Tablet) 6 mg PO BEDTIME PRN PRN Reason: Insomnia Metoprolol Succinate (Metoprolol Succinate Er 25 Mg Tab.Er.24h) 25 mg PO DAILY [facility]; Protocol Last Admin: 12/11/24 08:15 Dose: 25 mg Pantoprazole Sodium (Pantoprazole Sodium 40 Mg/10 Ml Vial) 40 mg IVPUSH DAILY@0630 [facility] Last Admin: 12/11/24 05:38 Dose: 40 mg Sodium Chloride (0.9 % Sodium Chloride Flush 3 Ml Syringe) 3 ml IVFLUSH QSHIFT [facility] Last Admin: 12/11/24 08:26 Dose: 3 ml Thiamine HCl (Thiamine Hcl 100 Mg Tablet) 100 mg PO DAILY [facility] Last Admin: 12/11/24 08:15 Dose: 100 mg Home Medications ?Medication ?Instructions ?Recorded ?Confirmed ?Last Taken ?Type allopurinol 100 mg tablet 100 mg PO DAILY 03/14/2412/08/24 History doxazosin 2 mg tablet 6 mg PO BID 03/14/24 5 12/08/24 History thiamine HCl (vitamin B1) 100 mg 100 mg PO DAILY 03/1412/09/24 12/08/24 History tablet acetaminophen 500 mg tablet 500 mg PO BEDTIME PRN Pain 12/09/24 12/09/24 Unknown History amlodipine 5 mg tablet 5 mg PO DAILY 12/09/2412/0912/08/24 History apixaban 5 mg tablet (Eliquis) 2.5 mg PO BID 12/09/24 12/09/24 12/08/24 History hydrochlorothiazide 12.5 mg capsule 12.5 mg PO DAILY 0 12/09/24 12/09/24 12/08/24 History ketoconazole 2 % shampoo 1 appl topical 2XW PRN Scalp rash 12/09/24 12/09/24 Unknown History ketoconazole 2 % topical cream 1 appl topical BID PRN Seborrheic 12/09/24 12/09/24 Unknown History Dermatitis loperamide 2 mg tablet 2 mg PO DAILY PRN Diarrhea 0 12/09/24 12/09/24 Unknown History naproxen sodium 220 mg tablet 220 mg PO DAILY PRN Pain 12/09/24 12/09/24 Unknown History omega-3 fatty acids-fish oil 684 1 cap PO DAILY 12/09/24 12/08/24 History mg-1,200 mg capsule,delayed release triamcinolone acetonide 0.1 % 1 appl topical DAILY PRN Itching 12/09/24 12/09/24 Unknown History topical cream Physical Exam 2 Vital Signs: Vital Signs: Last Vital Signs Temp 98.9 F 12/11/24 06:57 Pulse 62 12/11/24 06:57 Resp 18 12/11/24 06:57 BP 152/76 H 12/11/24 06:57 Pulse Ox 93 12/11/24 06:57 O2 Del Method Room Air 12/11/24 06:57 O2 Flow Rate 2 12/10/24 00:00 FiO2 35 12/09/24 10:07 BMI result Body Mass Index 39.0 Const: General: cooperative, comfortable, alert and awake Nutritional Appearance: overweight HEENT: Head: Yes normocephalic and Yes atraumatic Neck: Neck: Yes trachea midline, Yes supple and Yes no JVD Resp: Effort & Inspection: normal respiratory effort Cardio: Heart sounds: S1 normal heart sound present and S2 normal heart sound present GI: Auscultation: normal bowel sounds Skin: General skin exam: no rashes or lesions noted Extrem: General: Yes no clubbing, cyanosis or edema Psych: Appearance: grossly normal Results Laboratory Findings 12/10/24 08:33 12/10/24 08:33 ABG, PT/INR, D-dimer: PT/INR, D-dimer PT 22.4 SEC (10.9-12.4) H 12/09/24 10:01 INR 2.0 (0.9-1.1) H 12/09/24 10:01 Abnormal lab findings: Abnormal Labs 12/09/24 12/09/24 12/09/24 10:01 10:03 14:56 WBC 17.1 H RBC 4.40 L Hgb 13.7 L Hct 41.7 L Immature Gran % (Auto) 0.8 H Neut % (Auto) Lymph % (Auto) 15.9 L [place] # (Auto) 1.4 H Eos # (Auto) 0.5 H Abs Immat Gran (auto) 0.14 H Absolute Neuts (auto) 12.3 H PT 22.4 H INR 2.0 H Sodium Chloride Anion Gap BUN 31 H Creatinine 1.65 H Random Glucose 145 H AST 49 H ALT 41 H NT-Pro-B Natriuret Pep 770.2 H Albumin 3.3 L Ur Specific [place] >= 1.030 H Urine Protein 30 (1+) H Crossmatch See Detail 12/10/24 08:33 WBC 18.1 H RBC 3.89 L Hgb 12.4 L Hct 37.0 L Immature Gran % (Auto) 1.0 H Neut % (Auto) 79.2 H Lymph % (Auto) 9.9 L [place] # (Auto) 1.4 H Eos # (Auto) Abs Immat Gran (auto) 0.18 H Absolute Neuts (auto) 14.4 H PT INR Sodium 146 H Chloride 111 H Anion Gap 10 L BUN 23 H Creatinine 1.45 H Random Glucose 127 H AST ALT NT-Pro-B Natriuret Pep Albumin Ur Specific [place] Urine Protein Crossmatch Microbiology: Microbiology 12/09/24 10:31 Blood - Venous Blood Culture - Preliminary No growth after 24 hours. 12/09/24 10:31 Blood - Venous Blood Culture - Preliminary No growth after 24 hours. Assessment and Plan (1) Hemoptysis: Status: Acute (2) Pleural effusion, left: Status: Acute (3) Pneumonia: Qualifiers: Pneumonia type: due to unspecified organism Laterality: left Lung location: lower lobe of lung Qualified Code(s): J18.9 - Pneumonia, unspecified organism Status: Acute (4) Hypoxia: Status: Acute Plan The patient presenting with submassive hemoptysis in view of a left lower lobe pneumonia and a parapneumonic effusion. He does have what appears to be some debris in the central airways primarily on the left side that is very suggestive of blood clot. He does not have active bleeding at this time. Although he is off the anticoagulation. The patient should continue to be off the anticoagulation while getting treated for pneumonia. Will monitor closely the airways. Should consider having a bronchoscopy specially if considering going back on anticoagulation in the near future. As of now I did broke a bronchoscopy for Tuesday morning. Recommendations: Continue broad-spectrum antibiotics Chest x-ray today and serial imaging specially to follow the parapneumonic effusion Monitor for any evidence of any active bleeding which will require an urgent bronchoscopy Fem prolonged bronchoscopy the end of the week as long as the patient is stable to assess the airways for any area of bleeding concern prior to considering starting any anticoagulation in the near future Procedures Date of Service Date of Service: 12/11/24
[2024-12-11 09:12] LABS: Hematocrit 38.5 % (42.0-52.0); Hemoglobin 12.7 g/dl (14.0-18.0); Imm Gran Abs Auto 0.25 X10*3/uL (0.00-0.03); Imm Gran Pct Auto 1.1 % (0.0-0.4); Lymphocytes Absolute Auto 2.3 X10*3/uL (1.2-4.9); MANUAL DIFF FLAG SCAN; Mean Corpuscular HGB Conc 33.0 g/dl (31.0-36.0); Mean Corpuscular Hemoglobin 32.0 pg (27.0-33.0); Mean Corpuscular Volume 97.0 fL (80.0-98.0); NRBC Abs Auto 0.000 X10*3/uL (0.0-0.012); NRBC Pct Auto 0.0 /100WBC (0.0-0.2); Platelet Count 318 X10*3/uL (160-400); Red Blood Count 3.97 X10*6/uL (4.60-5.80); SCAN SMEAR FLAG 1; White Blood Count 22.4 X10*3/uL (4.8-10.8)
[2024-12-11 09:25] LABS: Anion Gap 11 (12-20); Blood Urea Nitrogen 18 mg/dL (9-16); Calcium 9.3 mg/dL (8.4-10.2); Carbon Dioxide 28 mmol/L (22-29); Chloride 113 mmol/L (96-108); Creatinine Clr Calc Pharmacy 38.5; Estimated Glomerular Filt Rate 47; Potassium 3.6 mmol/L (3.3-5.1); Sodium 148 mmol/L (135-145)
--- NOTE | 2024-12-11 10:13 | MHC.SL.SWA ---
Speech Pathologist Impression: Risk of Aspiration Due to: Dysphasia Diet Status: Recommend continue on current diet of PUREE (NDD1) with NECTAR THICK liquids, pills crushed in puree. 1-1 supervision as patient requires cuing: take individual sips, small bites, alternate liquids and solids, cough and re-swallow when needed, cessation of talking when eating. Aspiration precautions apply. Liquid Consistency and Strategies for Safe Swallow: Liquid Intake Recommendation: [place] Thick Liquid Intake Strategies: Small Sips No Straws Solid Food Consistency: Dietary Recommendations: Pureed (NDD1) Additional Modifications to Solid Foods: Oral Medication Intake: Crushed with Puree Please contact the pharmacy regarding appropriate crushable or liquid drug formulations that are available whenever modified delivery is recommended. Compensatory Strategies and Precautions to be Taken for Safe Swallow: Sitting Upright (90 deg) No Straw Liquids from Cup Small Bites and Sips Alternate Liquids/Solids Supervision While Eating and Drinking for Safe Swallow: Direct Supervision (1:1) Foods to Avoid: Swallowing Recommended Treatments: Compens. Strategy Educat. Recommendation for Speech: Inpatient Speech Therapy Speech Therapy through [facility] Comment: Patient seen this morning at breakfast to assess toleration of diet at meal. Patient was seated in bed, FIRE SPRINKLER APPARATUS INSPECTOR was in room supervising patient at meal. Patient reportedly elected only to eat the yogurt and orange juice this morning. Patient quite talkative, has marked dysarthria, with speech at times difficult to understand. Patient required frequent cuing not to talk while eating. Patient observed feeding self spoonfuls of yogurt, with good oral phase, mild delay of swallow observed. After several spoonfuls, patient noted to cough after a delay, cough clearly productive as voicing wet with patient seemingly holding coughed up mucus or food, patient was cued to swallow, which he initially did not do, then given small sip of liquid which triggered swallow and cleared airway. Patient given cup to drink from independently, noted to take somewhat large mouthfuls, then piecemeal swallow. Patient cued to take one sip at a time. Patient is mostly tolerating current diet, likely needs to cough and re-swallow at times to clear residual, but appears to be poor at self monitoring (e.g. repeated cuing given for the need to take individual sips, periodically cough/re-swallow, not speak with food in mouth). Recommend continue on current diet of PUREE (NDD1) with NECTAR THICK liquids, pills crushed in puree. 1-1 supervision as patient requires cuing: take individual sips, small bites, alternate liquids and solids, cough and re-swallow when needed, cessation of talking when eating. Frequency/Duration: M-F Daily Date Range for Service Req: Timeline to reassess: Academic Success Coordinator Clinican/Clinical Fellow: No Supervisory Statement: I have reviewed and agree with the student/clinical fellow's documentation: N/A Speech Language Pathologist: Jen Urena M.A., CCC-NURSE CHARGE RN
[2024-12-11 10:54] VITALS: BP 148/68; PULSE 70; RESP 18; TEMP 37.1; O2SAT 93
--- NOTE | 2024-12-11 13:58 | HO.PM.IMPN ---
Subjective Subjective Date of Service: 12/11/24 Interval History: PATIENT REPORTS SOME DIFFICULTY WITH HIS BREATHING, HOWEVER REPORTS THIS IS CHRONIC. HE DENIES ANY CHEST PAIN, FEVERS, RIGORS OR CHILLS. HE DENIES PALPITATIONS. WE DISCUSSED FINDINGS ON CT-PENDING PULMONARY RECOMMENDATIONS. SOURCE AND ETIOLOGY OF BLEEDING IS YET TO BE DETERMINED - CURRENTLY UNCLEAR Review of Systems Review of Systems: Yes all other systems are reviewed and are negative Physical Exam Exam: Exam: General: A&O x3, oriented to time place person and situation, comfortable, no pain Cardiac: S1, S2 auscultated with no S3/4, no MRG. Well perfused. Respiratory: Decreased I/E breath times bilaterally, with crackles auscultated on the left mid and lower zones, and right lower zone. No end expiratory wheezing auscultated. No tripoding, intercostal retractions. GI/ : No abdominal pain on palpation, no masses or distentions. MSK: Normal ambulation without pain at bony prominences or musculature Neurological: Expressive aphasia, normal neurological examination on, no cranial nerve abnormalities Vital Signs: Vital Signs: Last Vital Signs Temp 98.8 F 12/11/24 10:54 Pulse 70 12/11/24 10:54 Resp 18 12/11/24 10:54 BP 148/68 H 12/11/24 10:54 Pulse Ox 93 12/11/24 10:54 O2 Del Method Room Air 12/11/24 10:54 O2 Flow Rate 2 12/10/24 00:00 FiO2 35 12/09/24 10:07 BMI result Body Mass Index 39.0 Objective Data Active Medications Acetaminophen (Acetaminophen 325 Mg Tablet) 650 mg PO Q6H PRN PRN Reason: Pain, Mild 1-3,fever,headache Last Admin: 12/10/24 22:11 Dose: 650 mg Documented By: CLIFFORD Amlodipine Besylate (Amlodipine Besylate 5 Mg Tablet) 5 mg PO DAILY [facility]; Protocol Last Admin: 12/11/24 08:14 Dose: 5 mg Documented By: SANNA Calcium Carbonate (Calcium Carbonate 750 Mg Tab.Chew) 750 mg PO Q4H PRN PRN Reason: Heartburn Piperacillin Sod/Tazobactam (Sod 3.375 gm/ Sodium Chloride) 50 mls @ 100 mls/hr IV Q6H [facility] Last Infusion: 12/11/24 09:55 Dose: Infused Documented By: SANNA Magnesium Hydroxide (Milk Of Magnesia 30 Ml Oral.Susp) 30 ml PO DAILY PRN PRN Reason: Constipation Melatonin (Melatonin 3 Mg Tablet) 6 mg PO BEDTIME PRN PRN Reason: Insomnia Metoprolol Succinate (Metoprolol Succinate Er 25 Mg Tab.Er.24h) 25 mg PO DAILY [facility]; Protocol Last Admin: 12/11/24 08:15 Dose: 25 mg Documented By: SANNA Pantoprazole Sodium (Pantoprazole Sodium 40 Mg/10 Ml Vial) 40 mg IVPUSH DAILY@0630 [facility] Last Admin: 12/11/24 05:38 Dose: 40 mg Documented By: CLIFFORD Sodium Chloride (0.9 % Sodium Chloride Flush 3 Ml Syringe) 3 ml IVFLUSH QSHIFT [facility] Last Admin: 12/11/24 08:26 Dose: 3 ml Documented By: SANNA Thiamine HCl (Thiamine Hcl 100 Mg Tablet) 100 mg PO DAILY [facility] Last Admin: 12/11/24 08:15 Dose: 100 mg Documented By: SANNA Labs 12/11/24 08:18 12/11/24 08:18 Labs: Laboratory Results - last 24 hr 12/09/24 12/11/24 14:56 08:18 MCV 97.0 MCH 32.0 MCHC 33.0 RDW 13.7 Plt Count 318 MPV 10.5 Immature Gran % (Auto) 1.1 H Neut % (Auto) 78.2 H Lymph % (Auto) 10.2 L [place] % (Auto) 8.3 Eos % (Auto) 1.7 Baso % (Auto) 0.5 Lymph # (Auto) 2.3 [place] # (Auto) 1.9 H Eos # (Auto) 0.4 Baso # (Auto) 0.1 Abs Immat Gran (auto) 0.25 H Absolute Neuts (auto) 17.5 H Absolute Nucleated RBC 0.000 Nucleated RBC % (auto) 0.0 Smear Tech's Comments VERIFIED Anion Gap 11 L Estim Creat Clear Calc 38.5 Estimated GFR 47 Random Glucose 106 Calcium 9.3 Urine Ethyl Alcohol SEE NOTE Microbiology Microbiology Results: Microbiology 12/09/24 10:31 Blood Culture - Preliminary Blood - Venous No growth after 48 hours. 12/09/24 10:31 Blood Culture - Preliminary Blood - Venous No growth after 48 hours. Assessment and Plan (1) Tachy-benjamin syndrome: Status: Acute (2) Paroxysmal atrial fibrillation: Status: Acute (3) SHIRA (acute kidney injury): Status: Acute (4) Hypomagnesemia: Status: Acute (5) Acute hypokalemia: Status: Acute (6) Dehydration: Status: Acute (7) CVA (cerebral vascular accident): Status: Acute (8) Expressive aphasia: Status: Acute (9) Acute bronchitis: Status: Acute (10) Pneumonia: Status: Acute (11) Hemoptysis: Status: Acute (12) Pleural effusion, left: Status: Acute Plan 84 year old man with a background history of atrial fibrillation on anticoagulation, CVA, expressive aphasia, dysphagia, presents with hemoptysis, admitted for evaluation of hemoptysis and aspiration pneumonia. Aspiration pneumonia Continue IV Zosyn Speech therapy consult for swallow evaluation oxygen therapy to keep o2 sat > 90% Regular diet, puree with nectar thick liquids, pills crushed in puree, 1-1 supervision Hemoptysis/ hematemesis Left-sided large volume loculated pleural effusion Given non specificity of his complaints, CT neck soft tissue was pursued. Revealed lobulated and septated lipoma, right sternocleidomastoid muscle. A heterogenous nodular enlarged right thyroid lobe was also noted The patient has a concerning loculated large volume left-sided pleural effusion. Patient also has a 9 mm gas abnormality in the midline nasopharynx without a discrete mass In the setting of an aspiration pneumonia, the effusion could represent a parapneumonic effusion, or other etiologies. Pulmonary recommendations greatly appreciated. PLAN - gastroenterology was consulted, recommendations greatly appreciated - consulted pulmonology for further recommendations - patient may require thoracentesis for further evaluation of the loculated left-sided pleural effusion - serial chest x-rays to evaluate effusion - continue antibiotics with IV Zosyn Stable HH no further episodes while inpatient non cirrhotic liver on abd ct GI consultation Follow HH IV PPI Hx of stroke with expressive dysphagia speech eval MBSS Hx of alcohol abuse normal bilirubin, mildly elevated ast/alt non cirrhotic liver on abd ct denies daily alcohol abuse, reports last drink in August 2024 PAFIB hold eliquis due to hemoptysis continue BB BPH continue home medications Obesity. 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
[2024-12-11 15:42] VITALS: BP 157/73; PULSE 76; RESP 16; TEMP 36.2; O2SAT 92
[2024-12-11 19:03] VITALS: BP 166/75; PULSE 81; RESP 18; TEMP 36.6; O2SAT 92
[2024-12-12] VITALS (7 sets, daily range): BP systolic 126–169; BP diastolic 65–76; PULSE 64–73; RESP 16–20; TEMP 36.5–37.2; O2SAT 91–94
[2024-12-12 07:29] LABS: Hematocrit 35.6 % (42.0-52.0); Hemoglobin 11.5 g/dl (14.0-18.0); Imm Gran Abs Auto 0.28 X10*3/uL (0.00-0.03); Imm Gran Pct Auto 1.3 % (0.0-0.4); Lymphocytes Absolute Auto 2.1 X10*3/uL (1.2-4.9); MANUAL DIFF FLAG SCAN; Mean Corpuscular HGB Conc 32.3 g/dl (31.0-36.0); Mean Corpuscular Hemoglobin 31.3 pg (27.0-33.0); Mean Corpuscular Volume 97.0 fL (80.0-98.0); NRBC Abs Auto 0.000 X10*3/uL (0.0-0.012); NRBC Pct Auto 0.0 /100WBC (0.0-0.2); Platelet Count 328 X10*3/uL (160-400); Red Blood Count 3.67 X10*6/uL (4.60-5.80); SCAN SMEAR FLAG 1; White Blood Count 21.5 X10*3/uL (4.8-10.8)
[2024-12-12 07:42] LABS: Anion Gap 12 (12-20); Blood Urea Nitrogen 18 mg/dL (9-16); Calcium 8.8 mg/dL (8.4-10.2); Carbon Dioxide 26 mmol/L (22-29); Chloride 114 mmol/L (96-108); Creatinine Clr Calc Pharmacy 36.7; Estimated Glomerular Filt Rate 44; Potassium 3.5 mmol/L (3.3-5.1); Sodium 148 mmol/L (135-145)
[2024-12-12] MEDS: 0.9 % Sodium Chloride Flush 3 ML SYRINGE IVFLUSH ×2 (08:25→21:54)
[2024-12-12] MEDS: Metoprolol Succinate ER 25 MG TAB.ER.24H PO (08:26)
--- NOTE | 2024-12-12 11:41 | MHC.CM.PN ---
Per ROUNDS discussion, Patient is not yet medically cleared for dc (? of Bronch on 12/14/2024); home/resume services is Patient's goal and CM will continue to follow.
--- NOTE | 2024-12-12 14:18 | HO.ANESPROP2 ---
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 [facility] Active Problems Active Problems: All Active Problems Dehydration (Acute) CVA (cerebral vascular accident) (Acute) Expressive aphasia (Acute) Pleural effusion, left (Acute) Hemoptysis (Acute) Epistaxis (Acute) SHIRA (acute kidney injury) (Acute) Upper gastrointestinal bleed (Acute) Hypoxia (Acute) Pneumonia (Acute) Paroxysmal atrial fibrillation (Acute) Tachy-benjamin syndrome (Acute) Acute UTI (Acute) 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 (Acute) SHIRA (acute kidney injury) (Acute) Acute dehydration (Acute) Acute bronchitis (Acute) Hypomagnesemia (Acute) Acute hypokalemia (Acute) Past Medical History Medical History BPH (benign prostatic hyperplasia) Afib HTN (hypertension) Acute CVA (cerebrovascular accident) Social History Social History Household Members: Unknown / Unable to assess Housing: House Are you a primary healthcare consultant to a significant other at home: No Do you presently have visiting nurse or other home services: No Alcohol intake: current Alcohol intake frequency: does not drink Alcohol type: beer Comment: 1:1 sitter. Patient Tobacco Use Status: Former Tobacco user Tobacco use type: Cigarette Cigarette Packs Per Day: 1 Cigarettes Per Day: 20.0 Smoked in Last 30 Days: No e-Cigarette/Vaping Use: Never Used Second Hand Smoke Exposure: No Use of substances other than those prescribed or required for medical reasons: No Currently Displaying Signs/Symptoms of Drug Intoxication Withdrawal: No Have you been hit, kicked, punched, or otherwise hurt by someone within the past year? If so, by whom?: No Do you feel safe in your current relationship?: No Current Relationship Is there a partner from a previous relationship who is making you feel unsafe now?: No Are you made to feel afraid or neglected: No Are you DNR?: No Advance Directives: No Advance Directives Information Provided: Yes Advance Directives on File: No Do you have a plan to hurt others: No Plan Recently lost weight without trying: No Nutrition Risks: On aspiration precautions Poor oral hygiene: Yes service: Yes Meds Allergies Allergy/AdvReac Type Severity Reaction Status Date / Time amlodipine Allergy Unknown Verified 12/09/24 09:53 diltiazem Allergy Unknown Verified 12/09/24 09:53 Penicillins Allergy Unknown Verified 12/09/24 09:53 spironolactone Allergy Unknown Verified 12/09/24 09:53 Active Medications: Current Medications Acetaminophen (Acetaminophen 325 Mg Tablet) 650 mg PO Q6H PRN PRN Reason: Pain, Mild 1-3,fever,headache Last Admin: 12/10/24 22:11 Dose: 650 mg Amlodipine Besylate (Amlodipine Besylate 5 Mg Tablet) 5 mg PO DAILY [facility]; Protocol Last Admin: 12/12/24 08:26 Dose: 5 mg Calcium Carbonate (Calcium Carbonate 750 Mg Tab.Chew) 750 mg PO Q4H PRN PRN Reason: Heartburn Piperacillin Sod/Tazobactam (Sod 3.375 gm/ Sodium Chloride) 50 mls @ 100 mls/hr IV Q6H [facility] Last Infusion: 12/12/24 09:09 Dose: Infused Magnesium Hydroxide (Milk Of Magnesia 30 Ml Oral.Susp) 30 ml PO DAILY PRN PRN Reason: Constipation Melatonin (Melatonin 3 Mg Tablet) 6 mg PO BEDTIME PRN PRN Reason: Insomnia Metoprolol Succinate (Metoprolol Succinate Er 25 Mg Tab.Er.24h) 25 mg PO DAILY [facility]; Protocol Last Admin: 12/12/24 08:26 Dose: 25 mg Pantoprazole Sodium (Pantoprazole Sodium 40 Mg/10 Ml Vial) 40 mg IVPUSH DAILY@0630 [facility] Last Admin: 12/12/24 06:11 Dose: 40 mg Sodium Chloride (0.9 % Sodium Chloride Flush 3 Ml Syringe) 3 ml IVFLUSH QSHIFT [facility] Last Admin: 12/12/24 08:25 Dose: 3 ml Thiamine HCl (Thiamine Hcl 100 Mg Tablet) 100 mg PO DAILY [facility] Last Admin: 12/12/24 08:25 Dose: 100 mg Home Medications ?Medication ?Instructions ?Recorded ?Confirmed ?Last Taken ?Type allopurinol 100 mg tablet 100 mg PO DAILY 03/14/24 12/09/24 12/08/24 History doxazosin 2 mg tablet 6 mg PO BID 03/14/24 12/09/24 12/08/24 History thiamine HCl (vitamin B1) 100 mg 100 mg PO DAILY 03/14/24 12/09/24 12/08/24 History tablet acetaminophen 500 mg tablet 500 mg PO BEDTIME PRN Pain 12/09/24 12/09/24 Unknown History amlodipine 5 mg tablet 5 mg PO DAILY 12/09/24 12/09/24 12/08/24 History apixaban 5 mg tablet (Eliquis) 2.5 mg PO BID 12/09/24 12/09/24 12/08/24 History hydrochlorothiazide 12.5 mg capsule 12.5 mg PO DAILY 12/09/24 12/09/24 12/08/24 History ketoconazole 2 % shampoo 1 appl topical 2XW PRN Scalp rash 12/09/24 12/09/24 Unknown History ketoconazole 2 % topical cream 1 appl topical BID PRN Seborrheic 12/09/24 12/09/24 Unknown History Dermatitis loperamide 2 mg tablet 2 mg PO DAILY PRN Diarrhea 12/09/24 12/09/24 Unknown History naproxen sodium 220 mg tablet 220 mg PO DAILY PRN Pain 12/09/24 12/09/24 Unknown History omega-3 fatty acids-fish oil 684 1 cap PO DAILY 12/09/24 12/09/24 12/08/24 History mg-1,200 mg capsule,delayed release triamcinolone acetonide 0.1 % 1 appl topical DAILY PRN Itching 12/09/24 12/09/24 Unknown History topical cream Exam Height,Weight and Vital Signs: Height 5 ft 1 in Weight 93.7 kg Last Vital Signs Temp 98.9 F 12/12/24 10:56 Pulse 67 12/12/24 10:56 Resp 20 12/12/24 10:56 BP 126/66 12/12/24 10:56 Pulse Ox 94 12/12/24 10:56 O2 Del Method Room Air 12/12/24 10:56 O2 Flow Rate 2 12/10/24 00:00 FiO2 35 12/09/24 10:07 Pertinent Lab Results Pertinent Lab Results: Laboratory Tests 12/09/24 12/09/24 12/09/24 10:01 10:03 10:05 WBC 17.1 H RBC 4.40 L Hgb 13.7 L Hct 41.7 L MCV 94.8 MCH 31.1 MCHC 32.9 RDW 13.2 Plt Count 288 D MPV 10.2 Immature Gran % (Auto) 0.8 H Neut % (Auto) 71.9 Lymph % (Auto) 15.9 L [place] % (Auto) 7.9 Eos % (Auto) 2.9 Baso % (Auto) 0.6 Lymph # (Auto) 2.7 [place] # (Auto) 1.4 H Eos # (Auto) 0.5 H Baso # (Auto) 0.1 Abs Immat Gran (auto) 0.14 H Absolute Neuts (auto) 12.3 H Absolute Nucleated RBC 0.000 Nucleated RBC % (auto) 0.0 Smear Tech's Comments PT 22.4 H INR 2.0 H Sodium 144 Potassium 3.5 Chloride 108 Carbon Dioxide 26 Anion Gap 14 BUN 31 H Creatinine 1.65 H Estim Creat Clear Calc 33.1 Estimated GFR 40 Random Glucose 145 H Lactic Acid Calcium 9.6 D Magnesium 1.8 Total Bilirubin 0.7 AST 49 H ALT 41 H Alkaline Phosphatase 117 Troponin I High Sens 20.9 NT-Pro-B Natriuret Pep Total Protein 7.1 Albumin 3.3 L Urine Color Urine Appearance Urine pH Ur Specific [place] Urine Protein Urine Glucose (UA) Urine Ketones Urine Blood Urine Nitrite Ur Leukocyte Esterase Urine RBC Urine WBC Ur Squamous Epith Cells Urine Bacteria Hyaline Casts Stool Occult Blood NEGATIVE Urine Ethyl Alcohol Blood Type O Positive Antibody Screen NEGATIVE Crossmatch See Detail 12/09/24 12/09/24 12/09/24 10:31 12:03 14:56 WBC RBC Hgb Hct MCV MCH MCHC RDW Plt Count MPV Immature Gran % (Auto) Neut % (Auto) Lymph % (Auto) [place] % (Auto) Eos % (Auto) Baso % (Auto) Lymph # (Auto) [place] # (Auto) Eos # (Auto) Baso # (Auto) Abs Immat Gran (auto) Absolute Neuts (auto) Absolute Nucleated RBC Nucleated RBC % (auto) Smear Tech's Comments PT INR Sodium Potassium Chloride Carbon Dioxide Anion Gap BUN Creatinine Estim Creat Clear Calc Estimated GFR Random Glucose Lactic Acid 1.7 Calcium Magnesium Total Bilirubin AST ALT Alkaline Phosphatase Troponin I High Sens 26.8 NT-Pro-B Natriuret Pep 770.2 H Total Protein Albumin Urine Color Yellow Urine Appearance Clear Urine pH 5.5 Ur Specific [place] >= 1.030 H Urine Protein 30 (1+) H Urine Glucose (UA) Negative Urine Ketones Negative Urine Blood Negative Urine Nitrite Negative Ur Leukocyte Esterase Negative Urine RBC 0-2 Urine WBC 0-5 Ur Squamous Epith Cells 0-2 Urine Bacteria None Seen Hyaline Casts 0-2 Stool Occult Blood Urine Ethyl Alcohol SEE NOTE Blood Type Antibody Screen Crossmatch 12/10/24 12/11/24 12/12/24 08:33 08:18 06:37 WBC 18.1 H 22.4 H 21.5 H RBC 3.89 L 3.97 L 3.67 L Hgb 12.4 L 12.7 L 11.5 L Hct 37.0 L 38.5 L 35.6 L MCV 95.1 97.0 97.0 MCH 31.9 32.0 31.3 MCHC 33.5 33.0 32.3 RDW 13.5 13.7 13.8 Plt Count 291 318 328 MPV 10.1 10.5 10.3 Immature Gran % (Auto) 1.0 H 1.1 H 1.3 H Neut % (Auto) 79.2 H 78.2 H 79.4 H Lymph % (Auto) 9.9 L 10.2 L 9.6 L [place] % (Auto) 7.7 8.3 8.3 Eos % (Auto) 1.7 1.7 1.0 Baso % (Auto) 0.5 0.5 0.4 Lymph # (Auto) 1.8 2.3 2.1 [place] # (Auto) 1.4 H 1.9 H 1.8 H Eos # (Auto) 0.3 0.4 0.2 Baso # (Auto) 0.1 0.1 0.1 Abs Immat Gran (auto) 0.18 H 0.25 H 0.28 H Absolute Neuts (auto) 14.4 H 17.5 H 17.1 H Absolute Nucleated RBC 0.000 0.000 0.000 Nucleated RBC % (auto) 0.0 0.0 0.0 Smear Tech's Comments VERIFIED VERIFIED PT INR Sodium 146 H 148 H 148 H Potassium 3.6 3.6 3.5 Chloride 111 H 113 H 114 H Carbon Dioxide 29 28 26 Anion Gap 10 L 11 L 12 BUN 23 H 18 H 18 H Creatinine 1.45 H 1.44 H 1.51 H Estim Creat Clear Calc 38.2 38.5 36.7 Estimated GFR 47 47 44 Random Glucose 127 H 106 99 Lactic Acid Calcium 9.1 9.3 8.8 Magnesium Total Bilirubin AST ALT Alkaline Phosphatase Troponin I High Sens NT-Pro-B Natriuret Pep Total Protein Albumin Urine Color Urine Appearance Urine pH Ur Specific [place] Urine Protein Urine Glucose (UA) Urine Ketones Urine Blood Urine Nitrite Ur Leukocyte Esterase Urine RBC Urine WBC Ur Squamous Epith Cells Urine Bacteria Hyaline Casts Stool Occult Blood Urine Ethyl Alcohol Blood Type Antibody Screen Crossmatch Narrative Narrative: EKG 12/09/24 Vent. Rate : 90 BPM Atrial Rate : 90 BPM P-R Int : 210 ms QRS Dur : 162 ms QT Int : 400 ms P-R-T Axes : 87 -15 149 degrees QTcB Int : 489 ms Sinus rhythm with 1st degree A-V block Left bundle branch block Abnormal ECG When compared with ECG of 15-Mar-2024 23:21, Sinus rhythm has replaced Wide QRS tachycardia Vent. rate has decreased by 64 bpm ECHO 08/03/24 Left ventricular size is normal. Mild septal hypertrophy. Normal LV systolic function. EF is 63% by Marie's biplane method. No regional wall motion abnormalities. Grade II moderate diastolic dysfunction with pseudonormal LV filling pattern and increased LA pressure. Right ventricle is normal is size and function. Pulmonary artery systolic pressure estimation is 34 mmHg + right atrial pressure (central venous pressure). Left atrium mildly dilate. Aortic valve is trileaflet. Aortic valve is thickened. Trace aortic regurgitation. Mild aortic stenosis. Airway Mallampati Class: IV TM Dist: >3cm Neck ROM: Limited Loose/Missing/Broken Teeth: No Heart: RRR Documented by User: Shweta Cho MD 12/14/24 11:09 [facility] Past Medical History Medical History BPH (benign prostatic hyperplasia) Afib HTN (hypertension) Acute CVA (cerebrovascular accident) Family History Family history of problems with anesthesia: No Surgical History History of Problems with Anesthesia: No Social History Social History Household Members: Unknown / Unable to assess Housing: House Are you a primary healthcare consultant to a significant other at home: No Do you presently have visiting nurse or other home services: No Alcohol intake: current Alcohol intake frequency: does not drink Alcohol type: beer Comment: 1:1 sitter. Patient Tobacco Use Status: Former Tobacco user Tobacco use type: Cigarette Cigarette Packs Per Day: 1 Cigarettes Per Day: 20.0 Smoked in Last 30 Days: No e-Cigarette/Vaping Use: Never Used Second Hand Smoke Exposure: No Use of substances other than those prescribed or required for medical reasons: No Currently Displaying Signs/Symptoms of Drug Intoxication Withdrawal: No Have you been hit, kicked, punched, or otherwise hurt by someone within the past year? If so, by whom?: No Do you feel safe in your current relationship?: No Current Relationship Is there a partner from a previous relationship who is making you feel unsafe now?: No Are you made to feel afraid or neglected: No Are you DNR?: No Advance Directives: No Advance Directives Information Provided: Yes Advance Directives on File: No Do you have a plan to hurt others: No Plan Recently lost weight without trying: No Nutrition Risks: On aspiration precautions Poor oral hygiene: Yes service: Yes Meds Allergies Allergy/AdvReac Type Severity Reaction Status Date / Time amlodipine Allergy Unknown Verified 12/09/24 09:53 diltiazem Allergy Unknown Verified 12/09/24 09:53 Penicillins Allergy Unknown Verified 12/09/24 09:53 spironolactone Allergy Unknown Verified 12/09/24 09:53 Home Medications ?Medication ?Instructions ?Recorded ?Confirmed ?Last Taken ?Type allopurinol 100 mg tablet 100 mg PO DAILY 03/14/24 12/09/24 12/08/24 History doxazosin 2 mg tablet 6 mg PO BID 03/14/24 12/09/24 12/08/24 History thiamine HCl (vitamin B1) 100 mg 100 mg PO DAILY 03/14/24 12/09/24 12/08/24 History tablet acetaminophen 500 mg tablet 500 mg PO BEDTIME PRN Pain 12/09/24 12/09/24 Unknown History amlodipine 5 mg tablet 5 mg PO DAILY 12/09/24 12/09/24 12/08/24 History apixaban 5 mg tablet (Eliquis) 2.5 mg PO BID 12/09/24 12/09/24 12/08/24 History hydrochlorothiazide 12.5 mg capsule 12.5 mg PO DAILY 12/09/24 12/09/24 12/08/24 History ketoconazole 2 % shampoo 1 appl topical 2XW PRN Scalp rash 12/09/24 12/09/24 Unknown History ketoconazole 2 % topical cream 1 appl topical BID PRN Seborrheic 12/09/24 12/09/24 Unknown History Dermatitis loperamide 2 mg tablet 2 mg PO DAILY PRN Diarrhea 12/09/24 12/09/24 Unknown History naproxen sodium 220 mg tablet 220 mg PO DAILY PRN Pain 12/09/24 12/09/24 Unknown History omega-3 fatty acids-fish oil 684 1 cap PO DAILY 12/09/24 12/09/24 12/08/24 History mg-1,200 mg capsule,delayed release triamcinolone acetonide 0.1 % 1 appl topical DAILY PRN Itching 12/09/24 12/09/24 Unknown History topical cream Exam Airway Mallampati Class: III TM Dist: <=3cm Lungs: cta Assessment and Plan Assessment Anesthesia Assessment: Anesthesia Plan Discussed and Chart Reviewed Final Anesthetic Review Family History of Problems with Anesthesia: No History of Problems with Anesthesia: No NPO: Yes ASA Class: III Final Preanesthetic Review: No Changes in Pt Med Stat, Meds/Allgs Chart Reviewed, Consent Obtained/Reviewed and Anes Risks/Benef Reviewed Patient Risk: Intermediate Procedure Risk: Low Anesthetic Plan Anesthetic Plan: GA and Agree w/ Assess. and Plan Disposition: Standard PACU
--- NOTE | 2024-12-12 14:42 | MHC.SL.SWA ---
Speech Pathologist Impression: Moderate oropharyngeal dysphagia Risk of Aspiration Due to: Hx of CVA Hx of dysphagia Unclear etiology of hemotypsis/dysphagia (bronchoscopy planned) Dysphasia Diet Status: Recommend continue on current diet of PUREE (NDD1) with NECTAR THICK liquids, pills crushed in puree. 1-1 supervision as patient requires cuing: take individual sips, small bites, alternate liquids and solids, cough and re-swallow when needed, cessation of talking when eating. Aspiration precautions apply. Liquid Consistency and Strategies for Safe Swallow: Liquid Intake Recommendation: [place] Thick Liquid Intake Strategies: Small Sips No Straws Solid Food Consistency: Dietary Recommendations: Pureed (NDD1) Additional Modifications to Solid Foods: Oral Medication Intake: Crushed with Puree Please contact the pharmacy regarding appropriate crushable or liquid drug formulations that are available whenever modified delivery is recommended. Compensatory Strategies and Precautions to be Taken for Safe Swallow: Sitting Upright (90 deg) No Straw Liquids from Cup Small Bites and Sips Alternate Liquids/Solids Supervision While Eating and Drinking for Safe Swallow: Direct Supervision (1:1) Foods to Avoid: Swallowing Recommended Treatments: Compens. Strategy Educat. Recommendation for Speech: Inpatient Speech Therapy Speech Therapy through A Speech Therapy through Rehab Facility Modified Barium Swallow Study - Inpatient Comment: Pt seen for dysphagia treatment, RN consulted, noted pt is unhappy with current diet. Pt sitting upright, alert and attentive. PAYLOADER MACHINE OPERATOR provided education on reason for downgraded diet, pt verbalized understanding but expressed he usually eats 'regular food'. Pt trialed with thin liquids, tolerating approximately 3 sips of water but coughing after 4th sip. Pt tolerated NTL without cough, stating 'I like that'. Pt agreed to recommendations for NDD1 (purees) and NTL. Pt in agreement with continued PAYLOADER MACHINE OPERATOR intervention. PAYLOADER MACHINE OPERATOR to re-assess daily. Frequency/Duration: M-F Daily Date Range for Service Req: Timeline to reassess: Montessori Program Director Clinican/Clinical Fellow: No Supervisory Statement: I have reviewed and agree with the student/clinical fellow's documentation: N/A Speech Language Pathologist: Darshana Lucio M.S., CCC-PAYLOADER MACHINE OPERATOR
--- NOTE | 2024-12-12 17:22 | P.PNIM_ITS ---
Subjective Subjective Date of Service: 12/12/24 Interval History: No new issues or complaints today. Recommendations from Pulmonary Service have been implemented. Continue to monitor gradually respiratory improvement Plans for possible bronchoscopy on Tuesday Review of Systems Review of Systems: Yes all other systems are reviewed and are negative Physical Exam 2 Exam: Exam: General: A&O x3, oriented to time place person and situation, comfortable, no pain Cardiac: S1, S2 auscultated with no S3/4, no MRG. Well perfused. Respiratory: Decreased I/E breath times bilaterally, with crackles auscultated on the left mid and lower zones, and right lower zone. No end expiratory wheezing auscultated. No tripoding, intercostal retractions. GI/ : No abdominal pain on palpation, no masses or distentions. MSK: Normal ambulation without pain at bony prominences or musculature Neurological: Expressive aphasia, normal neurological examination on, no cranial nerve abnormalities Vital Signs: Vital Signs: Last Vital Signs Temp 97.8 F 12/12/24 15:42 Pulse 67 12/12/24 15:42 Resp 16 12/12/24 15:42 BP 165/76 H 12/12/24 15:42 Pulse Ox 93 12/12/24 15:42 O2 Del Method Room Air 12/12/24 15:42 O2 Flow Rate 2 12/10/24 00:00 FiO2 35 12/09/24 10:07 BMI result Body Mass Index 39.0 Objective Data Active Medications Acetaminophen (Acetaminophen 325 Mg Tablet) 650 mg PO Q6H PRN PRN Reason: Pain, Mild 1-3,fever,headache Last Admin: 12/10/24 22:11 Dose: 650 mg Documented By: CLIFFORD Amlodipine Besylate (Amlodipine Besylate 5 Mg Tablet) 5 mg PO DAILY [facility]; Protocol Last Admin: 12/12/24 08:26 Dose: 5 mg Documented By: SHYLA Calcium Carbonate (Calcium Carbonate 750 Mg Tab.Chew) 750 mg PO Q4H PRN PRN Reason: Heartburn Piperacillin Sod/Tazobactam (Sod 3.375 gm/ Sodium Chloride) 50 mls @ 100 mls/hr IV Q6H [facility] Last Infusion: 12/12/24 15:36 Dose: Infused Documented By: SHYLA Magnesium Hydroxide (Milk Of Magnesia 30 Ml Oral.Susp) 30 ml PO DAILY PRN PRN Reason: Constipation Melatonin (Melatonin 3 Mg Tablet) 6 mg PO BEDTIME PRN PRN Reason: Insomnia Metoprolol Succinate (Metoprolol Succinate Er 25 Mg Tab.Er.24h) 25 mg PO DAILY [facility]; Protocol Last Admin: 12/12/24 08:26 Dose: 25 mg Documented By: SHYLA Pantoprazole Sodium (Pantoprazole Sodium 40 Mg/10 Ml Vial) 40 mg IVPUSH DAILY@0630 [facility] Last Admin: 12/12/24 06:11 Dose: 40 mg Documented By: FOGARTIsael Sodium Chloride (0.9 % Sodium Chloride Flush 3 Ml Syringe) 3 ml IVFLUSH QSHIFT [facility] Last Admin: 12/12/24 15:16 Dose: Not Given Documented By: SHYLA Non-Admin Reason: Previously Administered Thiamine HCl (Thiamine Hcl 100 Mg Tablet) 100 mg PO DAILY [facility] Last Admin: 12/12/24 08:25 Dose: 100 mg Documented By: SHYLA Labs 12/12/24 06:37 12/12/24 06:37 Labs: Laboratory Results - last 24 hr 12/12/24 06:37 MCV 97.0 MCH 31.3 MCHC 32.3 RDW 13.8 Plt Count 328 MPV 10.3 Immature Gran % (Auto) 1.3 H Neut % (Auto) 79.4 H Lymph % (Auto) 9.6 L [place] % (Auto) 8.3 Eos % (Auto) 1.0 Baso % (Auto) 0.4 Lymph # (Auto) 2.1 [place] # (Auto) 1.8 H Eos # (Auto) 0.2 Baso # (Auto) 0.1 Abs Immat Gran (auto) 0.28 H Absolute Neuts (auto) 17.1 H Absolute Nucleated RBC 0.000 Nucleated RBC % (auto) 0.0 Smear Tech's Comments VERIFIED Anion Gap 12 Estim Creat Clear Calc 36.7 Estimated GFR 44 Random Glucose 99 Calcium 8.8 Assessment and Plan (1) Tachy-benjamin syndrome: Status: Acute (2) Paroxysmal atrial fibrillation: Status: Acute (3) SHIRA (acute kidney injury): Status: Acute (4) Dehydration: Status: Acute (5) 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 Aspiration pneumonia Continue IV Zosyn Speech therapy consult for swallow evaluation oxygen therapy to keep o2 sat > 90% Regular diet, puree with nectar thick liquids, pills crushed in puree, 1-1 supervision Hemoptysis/ hematemesis Left-sided large volume loculated pleural effusion Given non specificity of his complaints, CT neck soft tissue was pursued. Revealed lobulated and septated lipoma, right sternocleidomastoid muscle. A heterogenous nodular enlarged right thyroid lobe was also noted The patient has a concerning loculated large volume left-sided pleural effusion. Patient also has a 9 mm gas abnormality in the midline nasopharynx without a discrete mass In the setting of an aspiration pneumonia, the effusion could represent a parapneumonic effusion, or other etiologies. Pulmonary recommendations greatly appreciated. PLAN - gastroenterology was consulted, recommendations greatly appreciated - consulted pulmonology for further recommendations - patient may require thoracentesis for further evaluation of the loculated left-sided pleural effusion - serial chest x-rays to evaluate effusion - continue antibiotics with IV Zosyn - Plans for possible bronchoscopy Tuesday Stable HH no further episodes while inpatient non cirrhotic liver on abd ct GI consultation Follow HH IV PPI Hx of stroke with expressive dysphagia speech eval MBSS Hx of alcohol abuse normal bilirubin, mildly elevated ast/alt non cirrhotic liver on abd ct denies daily alcohol abuse, reports last drink in August 2024 PAFIB hold eliquis due to hemoptysis continue BB BPH continue home medications Obesity. BMI 37.9 Discussed importance of weight management as this may be contributing to worsening of other comorbidities [employer] - VTE: SCDs-hold anticoagulation - CODE STATUS: Full code - DIET: SUPERVISOR SHUTT[employer] PREPARATION 12/11: Regular diet, puree with nectar thick liquids, pills crushed in puree, 1-1 supervision Total time managing care of this patient today: 30 minutes. Quality Stroke Does the patient have a stroke diagnosis?: No VTE Prior VTE?: No VTE Risk Level:: Medical - moderate - high VTE Device Contraindication: N/A - Device Ordered VTE Drug Contraindication: Treatment Not Indicated
[2024-12-13] VITALS (7 sets, daily range): BP systolic 121–156; BP diastolic 60–73; PULSE 65–74; RESP 16–20; TEMP 36.3–37.1; O2SAT 92–94
[2024-12-13 06:39] LABS: Hematocrit 34.6 % (42.0-52.0); Hemoglobin 11.6 g/dl (14.0-18.0); Imm Gran Abs Auto 0.28 X10*3/uL (0.00-0.03); Imm Gran Pct Auto 1.5 % (0.0-0.4); Lymphocytes Absolute Auto 1.9 X10*3/uL (1.2-4.9); MANUAL DIFF FLAG SCAN; Mean Corpuscular HGB Conc 33.5 g/dl (31.0-36.0); Mean Corpuscular Hemoglobin 31.7 pg (27.0-33.0); Mean Corpuscular Volume 94.5 fL (80.0-98.0); NRBC Abs Auto 0.000 X10*3/uL (0.0-0.012); NRBC Pct Auto 0.0 /100WBC (0.0-0.2); Platelet Count 358 X10*3/uL (160-400); Red Blood Count 3.66 X10*6/uL (4.60-5.80); SCAN SMEAR FLAG 1; White Blood Count 18.9 X10*3/uL (4.8-10.8)
[2024-12-13 06:53] LABS: Anion Gap 12 (12-20); Blood Urea Nitrogen 21 mg/dL (9-16); Calcium 8.9 mg/dL (8.4-10.2); Carbon Dioxide 26 mmol/L (22-29); Chloride 114 mmol/L (96-108); Creatinine Clr Calc Pharmacy 36.4; Estimated Glomerular Filt Rate 44; Potassium 3.7 mmol/L (3.3-5.1); Sodium 148 mmol/L (135-145)
[2024-12-13] MEDS: Metoprolol Succinate ER 25 MG TAB.ER.24H PO (09:00)
[2024-12-13] MEDS: 0.9 % Sodium Chloride Flush 3 ML SYRINGE IVFLUSH ×3 (09:01→20:44)
--- NOTE | 2024-12-13 10:52 | MHC.SL.SWA ---
Speech Pathologist Impression: Risk of Aspiration Due to: Dysphasia Diet Status: Recommend UPGRADE solids to Ground Mechanical (NDD2) continue on NECTAR THICK liquids, pills crushed in puree. Patient continues to need tray set up and periodic observation during meals, cuing to alternate liquids and solids, avoid talking when eating. Liquid Consistency and Strategies for Safe Swallow: Liquid Intake Recommendation: [place] Thick Liquid Intake Strategies: Small Sips No Straws Solid Food Consistency: Dietary Recommendations: Pureed (NDD1) Additional Modifications to Solid Foods: Oral Medication Intake: Crushed with Puree Please contact the pharmacy regarding appropriate crushable or liquid drug formulations that are available whenever modified delivery is recommended. Compensatory Strategies and Precautions to be Taken for Safe Swallow: Sitting Upright (90 deg) No Straw Liquids from Cup Small Bites and Sips Alternate Liquids/Solids Supervision While Eating and Drinking for Safe Swallow: Tray Set Up Foods to Avoid: Swallowing Recommended Treatments: Compens. Strategy Educat. Recommendation for Speech: Inpatient Speech Therapy Speech Therapy through [facility] Speech Therapy through Rehab Facility Modified Barium Swallow Study - Inpatient Comment: Patient seen at breakfast. Patient continues to complain that he is unhappy with his diet and that he eats regular food at home. ORTHODONTIC LABORATORY TECHNICIAN attempted to understand history of patient's known dysphagia by interviewing patient and consulting medical record. Patient had a severe CVA in 2021, with patient reporting he was unable to swallow after his stroke and he had a G tube for nutrition for at least a month following his stroke. He was also in acute rehab for at least a month, during which he reports having Instrumental swallow studies and gradually beginning eating a modified diet (he noted thickened liquids and purees). He was discharged home with [facility] services, but was somewhat vague about how he eventually returned to eating regular solids and liquids. He did note he continued for a period thickening liquids at home. Patient has residual dysarthria, with evident weakness with tip and front of tongue as all front phonemes (/s, th, t, d, n/) are either omitted or distorted in his speech, making his speech at times unintelligible to an unfamiliar listener. Patient is currently on puree with nectar thick liquid, per ORTHODONTIC LABORATORY TECHNICIAN evaluation of 12/10/24. ORTHODONTIC LABORATORY TECHNICIAN re-evaluated patient at breakfast for advancement of diet: Patient observed drinking nectar thick juices by independent cup sip. Patient presents with adequate oral control, though occasionally takes too large a sip, resulting in piece meal swallow. Swallow as palpated is mildly reduced in elevation, visually muscle/structure at laryngeal level appears more flaccid on right side v. left. On puree, patient is able to adequately propel bolus orally, produces swallow with slight delay/absent swallow trigger. Patient given crushed cracker in puree, with patient producing a slow mastication, with anterior chewing, mild delay of swallow, evident oral residual cleared with liquid wash. On cracker dipped in puree, patient presented with a similar pattern, however more oral residual noted after swallow. Patient did cough during this observation, with both effort and evident discomfort and reddening of face, however it was not directly related to a single swallow. Recommend UPGRADE solids to Ground Mechanical (NDD2) continue on NECTAR THICK liquids, pills crushed in puree. Patient continues to need tray set up and periodic observation during meals, cuing to alternate liquids and solids, avoid talking when eating. ORTHODONTIC LABORATORY TECHNICIAN will continue to follow for toleration, further upgrade, determination if further assessment needed as a part of this hospital stay. Frequency/Duration: M-F Daily Date Range for Service Req: Timeline to reassess: [place] Clinican/Clinical Fellow: No Supervisory Statement: I have reviewed and agree with the student/clinical fellow's documentation: N/A Speech Language Pathologist: Jen Urena M.A., [facility]ORTHODONTIC LABORATORY TECHNICIAN
[2024-12-13 13:42] LABS: OBS Int Ctl Valid YES; OBS Lot 0124; OBS1 NEGATIVE (NEGATIVE)
--- NOTE | 2024-12-13 13:44 | P.PNIM_ITS ---
Subjective Subjective Date of Service: 12/13/24 Interval History: Frustrated with hospital stay and wishes to go home. Good sign!! He is overall feeling better; still has respiratory difficulty. Coughing without phlegm production - improving. No pyrexia rigors or chills Review of Systems Review of Systems: Yes all other systems are reviewed and are negative Physical Exam 2 Exam: Exam: General: A&O x3, oriented to time place person and situation, comfortable, no pain Cardiac: S1, S2 auscultated with no S3/4, no MRG. Well perfused. Respiratory: Decreased I/E breath times bilaterally, with crackles auscultated on the left mid and lower zones, and right lower zone. No end expiratory wheezing auscultated. No tripoding, intercostal retractions. GI/ : No abdominal pain on palpation, no masses or distentions. MSK: Normal ambulation without pain at bony prominences or musculature Neurological: Expressive aphasia, normal neurological examination on, no cranial nerve abnormalities Vital Signs: Vital Signs: Last Vital Signs Temp 98.0 F 12/13/24 10:56 Pulse 66 12/13/24 10:56 Resp 20 12/13/24 10:56 BP 144/70 H 12/13/24 10:56 Pulse Ox 93 12/13/24 10:56 O2 Del Method Room Air 12/13/24 10:56 O2 Flow Rate 2 12/10/24 00:00 FiO2 35 12/09/24 10:07 BMI result Body Mass Index 39.0 Objective Data Active Medications Acetaminophen (Acetaminophen 325 Mg Tablet) 650 mg PO Q6H PRN PRN Reason: Pain, Mild 1-3,fever,headache Last Admin: 12/10/24 22:11 Dose: 650 mg Documented By: CLIFFORD Amlodipine Besylate (Amlodipine Besylate 5 Mg Tablet) 5 mg PO DAILY [facility]; Protocol Last Admin: 12/13/24 09:00 Dose: 5 mg Documented By: FRANCK Calcium Carbonate (Calcium Carbonate 750 Mg Tab.Chew) 750 mg PO Q4H PRN PRN Reason: Heartburn Piperacillin Sod/Tazobactam (Sod 3.375 gm/ Sodium Chloride) 50 mls @ 100 mls/hr IV Q6H [facility] Last Infusion: 12/13/24 09:56 Dose: Infused Documented By: FRANCK Magnesium Hydroxide (Milk Of Magnesia 30 Ml Oral.Susp) 30 ml PO DAILY PRN PRN Reason: Constipation Melatonin (Melatonin 3 Mg Tablet) 6 mg PO BEDTIME PRN PRN Reason: Insomnia Metoprolol Succinate (Metoprolol Succinate Er 25 Mg Tab.Er.24h) 25 mg PO DAILY [facility]; Protocol Last Admin: 12/13/24 09:00 Dose: 25 mg Documented By: FRANCK Sodium Chloride (0.9 % Sodium Chloride Flush 3 Ml Syringe) 3 ml IVFLUSH QSHIFT [facility] Last Admin: 12/13/24 09:01 Dose: 3 ml Documented By: FRANCK Thiamine HCl (Thiamine Hcl 100 Mg Tablet) 100 mg PO DAILY [facility] Last Admin: 12/13/24 09:00 Dose: 100 mg Documented By: FRANCK Labs 12/13/24 06:15 12/13/24 06:15 Labs: Laboratory Results - last 24 hr 12/13/24 12/13/24 12/13/24 06:15 12:34 13:23 MCV 94.5 MCH 31.7 MCHC 33.5 RDW 13.9 Plt Count 358 MPV 10.0 Immature Gran % (Auto) 1.5 H Neut % (Auto) 77.4 H Lymph % (Auto) 10.1 L Edgar % (Auto) 8.6 Eos % (Auto) 2.0 Baso % (Auto) 0.4 Lymph # (Auto) 1.9 Edgar # (Auto) 1.6 H Eos # (Auto) 0.4 Baso # (Auto) 0.1 Abs Immat Gran (auto) 0.28 H Absolute Neuts (auto) 14.6 H Absolute Nucleated RBC 0.000 Nucleated RBC % (auto) 0.0 Smear Tech's Comments VERIFIED Anion Gap 12 Estim Creat Clear Calc 36.4 Estimated GFR 44 Random Glucose 98 Calcium 8.9 Stool Occult Blood NEGATIVE Blood Type O Positive Antibody Screen NEGATIVE Assessment and Plan (1) Tachy-benjamin syndrome: Status: Acute (2) Paroxysmal atrial fibrillation: Status: Acute (3) Upper gastrointestinal bleed: Status: Acute (4) SHIRA (acute kidney injury): Status: Acute (5) Acute hypokalemia: Status: Acute (6) Hypomagnesemia: Status: Acute (7) Acute dehydration: Status: Acute (8) CVA (cerebral vascular accident): Status: Acute (9) Expressive aphasia: Status: Acute (10) Acute bronchitis: Status: Acute (11) Pneumonia: Status: Acute (12) Hypoxia: Status: Acute (13) Hemoptysis: Status: Acute (14) Pleural effusion, left: Status: Acute Plan 84 year old man with a background history of atrial fibrillation on anticoagulation, CVA, expressive aphasia, dysphagia, presents with hemoptysis, admitted for evaluation of hemoptysis and aspiration pneumonia. Aspiration pneumonia Continue IV Zosyn Speech therapy consult for swallow evaluation oxygen therapy to keep o2 sat > 90% Regular diet, puree with nectar thick liquids, pills crushed in puree, 1-1 supervision Hemoptysis/ hematemesis Left-sided large volume loculated pleural effusion Given non specificity of his complaints, CT neck soft tissue was pursued. Revealed lobulated and septated lipoma, right sternocleidomastoid muscle. A heterogenous nodular enlarged right thyroid lobe was also noted The patient has a concerning loculated large volume left-sided pleural effusion. Patient also has a 9 mm gas abnormality in the midline nasopharynx without a discrete mass In the setting of an aspiration pneumonia, the effusion could represent a parapneumonic effusion, or other etiologies. Pulmonary recommendations greatly appreciated. PLAN - gastroenterology was consulted, recommendations greatly appreciated - consulted pulmonology for further recommendations - patient may require thoracentesis for further evaluation of the loculated left-sided pleural effusion - serial chest x-rays to evaluate effusion - continue antibiotics with IV Zosyn - Plans for possible bronchoscopy Tuesday Stable HH no further episodes while inpatient non cirrhotic liver on abd ct GI consultation Follow HH IV PPI Hx of stroke with expressive dysphagia speech eval MBSS Hx of alcohol abuse normal bilirubin, mildly elevated ast/alt non cirrhotic liver on abd ct denies daily alcohol abuse, reports last drink in August 2024 PAFIB hold eliquis due to hemoptysis continue BB BPH continue home medications Obesity. 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 Quality Stroke Does the patient have a stroke diagnosis?: No VTE Prior VTE?: No VTE Risk Level:: Medical - moderate - high VTE Device Contraindication: N/A - Device Ordered VTE Drug Contraindication: Treatment Not Indicated
[2024-12-14] VITALS (12 sets, daily range): BP systolic 128–161; BP diastolic 60–75; PULSE 63–94; RESP 16–22; TEMP 36.4–37.3; O2SAT 92–100
[2024-12-14 07:33] LABS: MANUAL DIFF FLAG NO
[2024-12-14 07:36] LABS: Hematocrit 36.3 % (42.0-52.0); Hemoglobin 12.0 g/dl (14.0-18.0); Imm Gran Abs Auto 0.32 X10*3/uL (0.00-0.03); Imm Gran Pct Auto 1.7 % (0.0-0.4); Lymphocytes Absolute Auto 2.3 X10*3/uL (1.2-4.9); Mean Corpuscular HGB Conc 33.1 g/dl (31.0-36.0); Mean Corpuscular Hemoglobin 31.5 pg (27.0-33.0); Mean Corpuscular Volume 95.3 fL (80.0-98.0); NRBC Abs Auto 0.000 X10*3/uL (0.0-0.012); NRBC Pct Auto 0.0 /100WBC (0.0-0.2); Platelet Count 440 X10*3/uL (160-400); Red Blood Count 3.81 X10*6/uL (4.60-5.80); White Blood Count 18.6 X10*3/uL (4.8-10.8)
[2024-12-14 07:43] LABS: INTERNATIONAL NORM RATIO 1.6 (0.9-1.1); Prothrombin Time 18.7 SEC (10.9-12.4)
[2024-12-14 07:48] LABS: Anion Gap 10 (12-20); Blood Urea Nitrogen 19 mg/dL (9-16); Calcium 9.1 mg/dL (8.4-10.2); Carbon Dioxide 26 mmol/L (22-29); Chloride 113 mmol/L (96-108); Creatinine Clr Calc Pharmacy 37.2; Estimated Glomerular Filt Rate 45; Potassium 3.7 mmol/L (3.3-5.1); Sodium 145 mmol/L (135-145)
[2024-12-14] MEDS: 0.9 % Sodium Chloride Flush 3 ML SYRINGE IVFLUSH ×2 (08:42→15:31)
--- NOTE | 2024-12-14 08:51 | MHC.SLORD ---
Speech Language Pathology Order Status: Pt NPO for procedure, plan for bronchoscopy 10:30 this morning. Dysphagia tx held until patient is cleared to resume PO.
[2024-12-14] MEDS: Lactated Ringers 1,000 ML 80 ML IVCONT ×2 (10:55→20:10)
--- NOTE | 2024-12-14 11:30 | MHC.SHP ---
Pre-Procedural Eval Section A - 24 Hr Update-Section A only Date of Service: 12/14/24 The patient is an INPATIENT: Yes Section B - Complete if H&P > 30 days Chief Complaint: Aspiration PNA Hemoptysis Allergies: Allergies Allergy/AdvReac Type Severity Reaction Status Date / Time amlodipine Allergy Unknown Verified 12/09/24 09:53 diltiazem Allergy Unknown Verified 12/09/24 09:53 Penicillins Allergy Unknown Verified 12/09/24 09:53 spironolactone Allergy Unknown Verified 12/09/24 09:53 Plan I have reviewed the history and physical and performed a pertinent physical examination on my patient. No changes have occurred unless specified. Time Spent With Patient Time: Total time managing care of this patient today ____ minutes.
--- NOTE | 2024-12-14 11:42 | MHC.CM.PN ---
Patient is not yet medically cleared for dc (? of Bronch today); Patient may benefit from a PT Eval to assist with disposition. CM will follow.
--- NOTE | 2024-12-14 13:03 | PM.OP ---
Brief Operative Note Date of Service: 12/14/24 Pre-op diagnosis: hemoptysis, penumonia Post-op diagnosis: other (Upper GI bleed) Procedure: Bronchosocpy Implants: Surgeon: Eladio gAuillon MD Anesthesia: GETA Was an Pediatric Nephrologist used for this Procedure?: No Estimated blood loss (mL): 3 Pathology: none sent Condition: stable Disposition: floor
--- NOTE | 2024-12-14 16:06 | MHC.SL.SWA ---
Speech Pathologist Impression: Risk of Aspiration, Oropharyngeal Dysphagia Dysphasia Diet Status: Continue on Ground Mechanical (NDD2) diet and NECTAR THICK liquids, pills crushed in puree. Patient continues to need tray set up and periodic observation during meals, cuing to alternate liquids and solids, avoid talking when eating. Liquid Consistency and Strategies for Safe Swallow: Liquid Intake Recommendation: [place] Thick Liquid Intake Strategies: Small Sips No Straws Solid Food Consistency: Dietary Recommendations: Grnd/Mech Altered (NDD2) Oral Medication Intake: Crushed with Puree Please contact the pharmacy regarding appropriate crushable or liquid drug formulations that are available whenever modified delivery is recommended. Compensatory Strategies and Precautions to be Taken for Safe Swallow: Sitting Upright (90 deg) No Straw Liquids from Cup Small Bites and Sips Alternate Liquids/Solids Supervision While Eating and Drinking for Safe Swallow: Tray Set Up Swallowing Recommended Treatments: Compens. Strategy Educat. Recommendation for Speech: Inpatient Speech Therapy Speech Therapy through [facility] Speech Therapy through Rehab Facility Modified Barium Swallow Study - Inpatient Comment: Pt would benefit from continued PARKING TECHNICIAN intervention upon d/c to manage dysphagia. Recommend MBSS when appropriate (inpatient vs outpatient) to visualize physiological mechanism of swallow. Frequency/Duration: M-F Daily Date Range for Service Req: Timeline to reassess: Audit Intern Clinican/Clinical Fellow: No Supervisory Statement: I have reviewed and agree with the student/clinical fellow's documentation: N/A Speech Language Pathologist: Olga Lidia Edgar M.A., CCC-PARKING TECHNICIAN
--- NOTE | 2024-12-14 17:18 | P.PNIM_ITS ---
Subjective Subjective Date of Service: 12/14/24 Interval History: Bronchoscopy conducted today. Revealing persistent bleeding within bronchi, however source seems to be esophageal in nature as opposed to tracheal or bronchial in nature. Consulted gastroenterology was placed for further evaluation. The patient reports feeling better overall. Review of Systems Review of Systems: Yes all other systems are reviewed and are negative Physical Exam 2 Exam: Exam: General: A&O x3, oriented to time place person and situation, comfortable, no pain Cardiac: S1, S2 auscultated with no S3/4, no MRG. Well perfused. Respiratory: Decreased I/E breath times bilaterally, with crackles auscultated on the left mid and lower zones, and right lower zone. No end expiratory wheezing auscultated. No tripoding, intercostal retractions. GI/ : No abdominal pain on palpation, no masses or distentions. MSK: Normal ambulation without pain at bony prominences or musculature Neurological: Expressive aphasia, normal neurological examination on, no cranial nerve abnormalities Vital Signs: Vital Signs: Last Vital Signs Temp 98.1 F 12/14/24 16:00 Pulse 130 H 12/14/24 16:00 Resp 17 12/14/24 16:00 BP 130/60 12/14/24 16:00 Pulse Ox 93 12/14/24 16:00 O2 Del Method Room Air 12/14/24 16:00 O2 Flow Rate 10 12/14/24 12:54 FiO2 60 12/14/24 12:54 BMI result Body Mass Index 39.0 Objective Data Active Medications Acetaminophen (Acetaminophen 325 Mg Tablet) 650 mg PO Q6H PRN PRN Reason: Pain, Mild 1-3,fever,headache Last Admin: 12/13/24 20:46 Dose: 650 mg Documented By: TOREY Amlodipine Besylate (Amlodipine Besylate 5 Mg Tablet) 5 mg PO DAILY [facility]; Protocol Last Admin: 12/14/24 08:48 Dose: Not Given Documented By: FRANCK Non-Admin Reason: NPO Comments: patient unable to take medication without thickener. Calcium Carbonate (Calcium Carbonate 750 Mg Tab.Chew) 750 mg PO Q4H PRN PRN Reason: Heartburn Piperacillin Sod/Tazobactam (Sod 3.375 gm/ Sodium Chloride) 50 mls @ 100 mls/hr IV Q6H [facility] Last Infusion: 12/14/24 16:02 Dose: Infused Documented By: FRANCK Lactated Ringer's (Lr) 1,000 mls @ 80 mls/hr IVCONT .[id number] [facility] Last Infusion: 12/14/24 15:29 Dose: Infused Documented By: FRANCK Magnesium Hydroxide (Milk Of Magnesia 30 Ml Oral.Susp) 30 ml PO DAILY PRN PRN Reason: Constipation Melatonin (Melatonin 3 Mg Tablet) 6 mg PO BEDTIME PRN PRN Reason: Insomnia Metoprolol Succinate (Metoprolol Succinate Er 25 Mg Tab.Er.24h) 25 mg PO DAILY [facility]; Protocol Last Admin: 12/14/24 08:49 Dose: Not Given Documented By: FRANCK Non-Admin Reason: NPO Comments: patient unable to take medication without thickener. Naloxone HCl (Naloxone Hcl 0.4 Mg/Ml Vial) 0.04 mg IVPUSH Q5M PRN PRN Reason: Excessive sedation or RR < 8 Sodium Chloride (0.9 % Sodium Chloride Flush 3 Ml Syringe) 3 ml IVFLUSH QSHIFT [facility] Last Admin: 12/14/24 15:31 Dose: 3 ml Documented By: FRANCK Thiamine HCl (Thiamine Hcl 100 Mg Tablet) 100 mg PO DAILY [facility] Last Admin: 12/14/24 08:49 Dose: Not Given Documented By: FRANCK Non-Admin Reason: NPO Comments: patient unable to take medication without thickener. Labs 12/14/24 07:14 12/14/24 07:14 Labs: Laboratory Results - last 24 hr 12/14/24 07:14 MCV 95.3 MCH 31.5 MCHC 33.1 RDW 13.9 Plt Count 440 H MPV 9.9 Immature Gran % (Auto) 1.7 H Neut % (Auto) 75.0 H Lymph % (Auto) 12.4 L [place] % (Auto) 8.1 Eos % (Auto) 2.4 Baso % (Auto) 0.4 Lymph # (Auto) 2.3 [place] # (Auto) 1.5 H Eos # (Auto) 0.5 H Baso # (Auto) 0.1 Abs Immat Gran (auto) 0.32 H Absolute Neuts (auto) 14.0 H Absolute Nucleated RBC 0.000 Nucleated RBC % (auto) 0.0 PT 18.7 H INR 1.6 H Anion Gap 10 L Estim Creat Clear Calc 37.2 Estimated GFR 45 Random Glucose 95 Calcium 9.1 Microbiology Microbiology Results: Microbiology 12/14/24 12:00 Gram Stain - Final Lung - Wash, bilateral 12/09/24 10:31 Blood Culture - Final Blood - Venous No growth after 5 days. 12/09/24 10:31 Blood Culture - Final Blood - Venous No growth after 5 days. Assessment and Plan (1) Tachy-benjamin syndrome: Status: Acute (2) Paroxysmal atrial fibrillation: Status: Acute (3) Upper gastrointestinal bleed: Status: Acute (4) SHIRA (acute kidney injury): Status: Acute (5) Acute hypokalemia: Status: Acute (6) Hypomagnesemia: Status: Acute (7) Dehydration: Status: Acute (8) CVA (cerebral vascular accident): Status: Acute (9) Expressive aphasia: Status: Acute (10) Hypoxia: Status: Acute (11) Hemoptysis: Status: Acute (12) Acute bronchitis: Status: Acute Plan 84 year old man with a background history of atrial fibrillation on anticoagulation, CVA, expressive aphasia, dysphagia, presents with hemoptysis, admitted for evaluation of hemoptysis and aspiration pneumonia. Aspiration pneumonia Continue IV Zosyn Speech therapy consult for swallow evaluation oxygen therapy to keep o2 sat > 90% Regular diet, puree with nectar thick liquids, pills crushed in puree, 1-1 supervision Hemoptysis/ hematemesis Left-sided large volume loculated pleural effusion Given non specificity of his complaints, CT neck soft tissue was pursued. Revealed lobulated and septated lipoma, right sternocleidomastoid muscle. A heterogenous nodular enlarged right thyroid lobe was also noted The patient has a concerning loculated large volume left-sided pleural effusion. Patient also has a 9 mm gas abnormality in the midline nasopharynx without a discrete mass In the setting of an aspiration pneumonia, the effusion could represent a parapneumonic effusion, or other etiologies. Pulmonary recommendations greatly appreciated. Esophageal bleeding was noted via bronchoscopy 12/14/2024 - patient is likely aspirating esophageal bleeding, which is causing an aspiration pneumonitis. PLAN - gastroenterology was consulted, recommendations greatly appreciated - consulted pulmonology for further recommendations - patient may require thoracentesis for further evaluation of the loculated left-sided pleural effusion - serial chest x-rays to evaluate effusion - continue antibiotics with IV Zosyn Stable HH no further episodes while inpatient non cirrhotic liver on abd ct GI consultation Follow HH IV PPI Hx of stroke with expressive dysphagia speech eval MBSS Hx of alcohol abuse normal bilirubin, mildly elevated ast/alt non cirrhotic liver on abd ct denies daily alcohol abuse, reports last drink in August 2024 PAFIB hold eliquis due to hemoptysis continue BB BPH continue home medications Obesity. 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 Quality Stroke Does the patient have a stroke diagnosis?: No VTE Prior VTE?: No VTE Risk Level:: Medical - moderate - high VTE Device Contraindication: N/A - Device Ordered VTE Drug Contraindication: Treatment Not Indicated
--- NOTE | 2024-12-15 01:52 | OP_ITS ---
DATE OF SERVICE: 12/14/2024 SURGEON: Eladio Aguillon MD PREOPERATIVE DIAGNOSIS: POSTOPERATIVE DIAGNOSIS: Upper gastrointestinal bleed. No evidence of any active bleeding from the airways and the lungs. PROCEDURE PERFORMED: Bronchoscopy with washings. ESTIMATED BLOOD LOSS: COMPLICATIONS: ANESTHESIA: General endotracheal anesthesia was provided. ASSISTANTS: SPECIMENS: SUPERVISOR POULTRY HATCHERY: None. DESCRIPTION OF PROCEDURE: After the patient was adequately sedated, he was intubated. During the intubation, a quick view of the larynx was noted by the anesthesiologist where he had some bright red blood in the oropharynx. They were able to intubate him. Once he was intubated and comfortable, the flexible digital bronchoscope was inserted via the ET tube to the level of the main charles. The bronchoscope was navigated to the entire tracheobronchial tree that was examined up to the segmental level without any evidence of any endobronchial lesions, masses, or bleeding. No evidence of any old blood either. No evidence of any zahra-looking washings. No evidence of any foreign bodies. Airway structures were relatively normal except for some endobronchial mucosa swelling primarily in the left lower lobe area where he was noted to have pneumonia on CAT scan. The bronchoscope was then navigated to the trachea, where the ET tube was slowly removed and the tracheal mucosa was visualized without any injury or active bleeding. The bronchoscope was placed through the oropharynx and was visualized around the ET tube and again concerning was the anesthesiologist noted there was bright red blood in the oropharynx. It most specifically appears to be coming out of the opening of the esophagus. No further interventions were done at that point. The bleeding was oozing, but no severe bleeding at this time. The bronchoscope was then removed. The total endoscopic time approximately 10 minutes. Patient tolerated the procedure well. No evidence of any complications. The hospital care team was made aware that he was having some active GI bleeding. MD AMALIA Martinez/ELISEO / [id number]
[2024-12-15 03:31] VITALS: BP 143/67; PULSE 64; RESP 18; TEMP 36.6; O2SAT 92
--- NOTE | 2024-12-15 04:18 | PC.NURSE ---
Pt seen on bed at shift change asleep , awaken with care, alert and oriented x1-2, slurred and slow speech, denies any pain, meds tolerated. Woke up around 3am and impulsively got OOB and wanting to go to the BR, accidentally pulled out his IVline with blood all over pt and the floor, pt was reoriented, new IVline reinserted aseptically on the LFA.
[2024-12-15 06:04] LABS: MANUAL DIFF FLAG NO
[2024-12-15 06:17] LABS: Hematocrit 38.2 % (42.0-52.0); Hemoglobin 12.3 g/dl (14.0-18.0); Imm Gran Abs Auto 0.28 X10*3/uL (0.00-0.03); Imm Gran Pct Auto 1.6 % (0.0-0.4); Lymphocytes Absolute Auto 1.9 X10*3/uL (1.2-4.9); Mean Corpuscular HGB Conc 32.2 g/dl (31.0-36.0); Mean Corpuscular Hemoglobin 31.5 pg (27.0-33.0); Mean Corpuscular Volume 97.7 fL (80.0-98.0); NRBC Abs Auto 0.000 X10*3/uL (0.0-0.012); NRBC Pct Auto 0.0 /100WBC (0.0-0.2); Platelet Count 460 X10*3/uL (160-400); Red Blood Count 3.91 X10*6/uL (4.60-5.80); White Blood Count 17.0 X10*3/uL (4.8-10.8)
[2024-12-15 06:33] LABS: Anion Gap 10 (12-20); Blood Urea Nitrogen 18 mg/dL (9-16); Calcium 8.8 mg/dL (8.4-10.2); Carbon Dioxide 24 mmol/L (22-29); Chloride 115 mmol/L (96-108); Creatinine Clr Calc Pharmacy 39.9; Estimated Glomerular Filt Rate 49; Potassium 3.5 mmol/L (3.3-5.1); Sodium 145 mmol/L (135-145)
[2024-12-15 07:14] VITALS: BP 157/76; PULSE 61; RESP 18; TEMP 36.3; O2SAT 94
[2024-12-15] MEDS: 0.9 % Sodium Chloride Flush 3 ML SYRINGE IVFLUSH ×3 (09:06→21:04)
[2024-12-15] MEDS: Metoprolol Succinate ER 25 MG TAB.ER.24H PO (09:07)
[2024-12-15] MEDS: Lactated Ringers 1,000 ML 80 ML IVCONT (10:47)
[2024-12-15 11:14] VITALS: BP 150/70; PULSE 56; RESP 16; TEMP 36.3; O2SAT 96
--- NOTE | 2024-12-15 11:43 | HO.POSTANES ---
Post Anesthesia Evaluation Post Anesthesia Evaluation Date of Service: 12/15/24 Vital Signs: Vital Signs Temp Pulse Resp BP Pulse Ox O2 Del Method 12/15/24 11:14 97.4 F 56 16 150/70 H 96 Room Air 12/15/24 07:14 97.4 F 61 18 157/76 H 94 Room Air 12/15/24 03:31 97.9 F 64 18 143/67 H 92 Room Air 12/14/24 23:46 97.5 F 63 16 146/68 H 95 Room Air Anesthesia: General Endotracheal-GETA Mental Status: Awake Pain Control: Satisfactory Nausea/Vomiting: None Hydration: Adequate Anesthesia-Related Issues: No Anes. Related Issues
--- NOTE | 2024-12-15 14:21 | P.PNIM_ITS ---
Subjective Subjective Date of Service: 12/15/24 Interval History: Looking overall better today. More communicative. The patient has no new complaints today. Discussed some findings identified during bronchoscopy. No bleeding active noted, but evidence of esophgeal bleeding. GI c ontacted yesterday for reccs. Review of Systems Review of Systems: Yes all other systems are reviewed and are negative Physical Exam 2 Exam: Exam: General: A&O x3, oriented to time place person and situation, comfortable, no pain Cardiac: S1, S2 auscultated with no S3/4, no MRG. Well perfused. Respiratory: Decreased I/E breath times bilaterally, with crackles auscultated on the left mid and lower zones, and right lower zone. No end expiratory wheezing auscultated. No tripoding, intercostal retractions. GI/ : No abdominal pain on palpation, no masses or distentions. MSK: Normal ambulation without pain at bony prominences or musculature Neurological: Expressive aphasia, normal neurological examination on, no cranial nerve abnormalities Vital Signs: Vital Signs: Last Vital Signs Temp 97.4 F 12/15/24 11:14 Pulse 56 12/15/24 11:14 Resp 16 12/15/24 11:14 BP 150/70 H 12/15/24 11:14 Pulse Ox 96 12/15/24 11:14 O2 Del Method Room Air 12/15/24 11:14 O2 Flow Rate 10 12/14/24 12:54 FiO2 60 12/14/24 12:54 BMI result Body Mass Index 39.0 Objective Data Active Medications Acetaminophen (Acetaminophen 325 Mg Tablet) 650 mg PO Q6H PRN PRN Reason: Pain, Mild 1-3,fever,headache Last Admin: 12/13/24 20:46 Dose: 650 mg Documented By: TOREY Amlodipine Besylate (Amlodipine Besylate 5 Mg Tablet) 5 mg PO DAILY [facility]; Protocol Last Admin: 12/15/24 09:07 Dose: 5 mg Documented By: AMARI Calcium Carbonate (Calcium Carbonate 750 Mg Tab.Chew) 750 mg PO Q4H PRN PRN Reason: Heartburn Piperacillin Sod/Tazobactam (Sod 3.375 gm/ Sodium Chloride) 50 mls @ 100 mls/hr IV Q6H [facility] Last Infusion: 12/15/24 09:48 Dose: Infused Documented By: AMARI Lactated Ringer's (Lr) 1,000 mls @ 80 mls/hr IVCONT .[id number] [facility] Last Admin: 12/15/24 10:47 Dose: 80 mls/hr Documented By: AMARI Magnesium Hydroxide (Milk Of Magnesia 30 Ml Oral.Susp) 30 ml PO DAILY PRN PRN Reason: Constipation Melatonin (Melatonin 3 Mg Tablet) 6 mg PO BEDTIME PRN PRN Reason: Insomnia Metoprolol Succinate (Metoprolol Succinate Er 25 Mg Tab.Er.24h) 25 mg PO DAILY [facility]; Protocol Last Admin: 12/15/24 09:07 Dose: 25 mg Documented By: AMARI Naloxone HCl (Naloxone Hcl 0.4 Mg/Ml Vial) 0.04 mg IVPUSH Q5M PRN PRN Reason: Excessive sedation or RR < 8 Sodium Chloride (0.9 % Sodium Chloride Flush 3 Ml Syringe) 3 ml IVFLUSH QSHIFT [facility] Last Admin: 12/15/24 09:06 Dose: 3 ml Documented By: AMARI Thiamine HCl (Thiamine Hcl 100 Mg Tablet) 100 mg PO DAILY [facility] Last Admin: 12/15/24 09:07 Dose: 100 mg Documented By: AMARI Labs 12/15/24 05:43 12/15/24 05:43 Labs: Laboratory Results - last 24 hr 12/15/24 05:43 MCV 97.7 MCH 31.5 MCHC 32.2 RDW 14.0 Plt Count 460 H MPV 10.2 Immature Gran % (Auto) 1.6 H Neut % (Auto) 75.4 H Lymph % (Auto) 11.4 L [place] % (Auto) 8.1 Eos % (Auto) 2.8 Baso % (Auto) 0.7 Lymph # (Auto) 1.9 [place] # (Auto) 1.4 H Eos # (Auto) 0.5 H Baso # (Auto) 0.1 Abs Immat Gran (auto) 0.28 H Absolute Neuts (auto) 12.8 H Absolute Nucleated RBC 0.000 Nucleated RBC % (auto) 0.0 Anion Gap 10 L Estim Creat Clear Calc 39.9 Estimated GFR 49 Random Glucose 123 H Calcium 8.8 Microbiology Microbiology Results: Microbiology 12/14/24 12:00 Gram Stain - Final Lung - Wash, bilateral Routine Culture - Preliminary Culture in progress. 12/09/24 10:31 Blood Culture - Final Blood - Venous No growth after 5 days. 12/09/24 10:31 Blood Culture - Final Blood - Venous No growth after 5 days. Assessment and Plan (1) Paroxysmal atrial fibrillation: Status: Acute (2) Epistaxis: Status: Acute (3) Upper gastrointestinal bleed: Status: Acute (4) SHIRA (acute kidney injury): Status: Acute (5) Acute hypokalemia: Status: Acute (6) Hypomagnesemia: Status: Acute (7) Acute dehydration: Status: Acute (8) Dehydration: Status: Acute (9) CVA (cerebral vascular accident): Status: Acute (10) Expressive aphasia: Status: Acute (11) Pneumonia: Status: Acute (12) Acute bronchitis: Status: Acute (13) Hypoxia: Status: Acute (14) Pleural effusion, left: Status: Acute Plan 84 year old man with a background history of atrial fibrillation on anticoagulation, CVA, expressive aphasia, dysphagia, presents with hemoptysis, admitted for evaluation of hemoptysis and aspiration pneumonia. Aspiration pneumonia Continue IV Zosyn Speech therapy consult for swallow evaluation oxygen therapy to keep o2 sat > 90% Regular diet, puree with nectar thick liquids, pills crushed in puree, 1-1 supervision Hemoptysis/ hematemesis Left-sided large volume loculated pleural effusion Given non specificity of his complaints, CT neck soft tissue was pursued. Revealed lobulated and septated lipoma, right sternocleidomastoid muscle. A heterogenous nodular enlarged right thyroid lobe was also noted The patient has a concerning loculated large volume left-sided pleural effusion. Patient also has a 9 mm gas abnormality in the midline nasopharynx without a discrete mass In the setting of an aspiration pneumonia, the effusion could represent a parapneumonic effusion, or other etiologies. Pulmonary recommendations greatly appreciated. Esophageal bleeding was noted via bronchoscopy 12/14/2024 - patient is likely aspirating esophageal bleeding, which is causing an aspiration pneumonitis. PLAN - gastroenterology was consulted, recommendations greatly appreciated - consulted pulmonology for further recommendations - patient may require thoracentesis for further evaluation of the loculated left-sided pleural effusion - serial chest x-rays to evaluate effusion - continue antibiotics with IV Zosyn Stable HH no further episodes while inpatient non cirrhotic liver on abd ct GI consultation Follow HH IV PPI Hx of stroke with expressive dysphagia speech eval MBSS Hx of alcohol abuse normal bilirubin, mildly elevated ast/alt non cirrhotic liver on abd ct denies daily alcohol abuse, reports last drink in August 2024 PAFIB hold eliquis due to hemoptysis continue BB BPH continue home medications Obesity. BMI 37.9 Discussed importance of weight management as this may be contributing to worsening of other comorbidities [employer] - VTE: SCDs-hold anticoagulation - CODE STATUS: Full code - DIET: [employer] 12/11: Regular diet, puree with nectar thick liquids, pills crushed in puree, 1-1 supervision Total time managing care of this patient today: 35 minutes. Quality Stroke Does the patient have a stroke diagnosis?: No VTE Prior VTE?: No VTE Risk Level:: Medical - moderate - high VTE Device Contraindication: N/A - Device Ordered VTE Drug Contraindication: Treatment Not Indicated
[2024-12-15 14:57] VITALS: BP 156/71; PULSE 88; RESP 18; TEMP 36.2; O2SAT 95
--- NOTE | 2024-12-15 16:51 | P.PNGI_ITS ---
Subjective Subjective Date of Service: 12/15/24 Interval History: GI Weekend Coverage for Dr. Bean. She saw patient on 12/10 for GI Consult. History from RN, patient, and EMR. There has been no report of GI bleeding. He had 2 brown stools today. There has been no nausea or vomiting. He denies any abdominal pain, heartburn, anorexia, or dysphagia/odynophagia. Critical Care Time (minutes): 0 Physical Exam 2 Vital Signs: Vital Signs: Last Vital Signs Temp 97.2 F 12/15/24 14:57 Pulse 88 12/15/24 14:57 Resp 18 12/15/24 14:57 BP 156/71 H 12/15/24 14:57 Pulse Ox 95 12/15/24 14:57 O2 Del Method Room Air 12/15/24 14:57 O2 Flow Rate 10 12/14/24 12:54 FiO2 60 12/14/24 12:54 BMI result Body Mass Index 39.0 Const: General: cooperative, comfortable, no acute distress, well developed, alert and awake Limitations: other limitations (Aphasia to some degree, but we were able to understand each other) GI: Other: Abd-soft, +BS, NT, nondistended Objective Data Labs 12/15/24 05:43 12/15/24 05:43 Labs: Laboratory Results - last 24 hr 12/15/24 05:43 WBC 17.0 H RBC 3.91 L Hgb 12.3 L Hct 38.2 L MCV 97.7 MCH 31.5 MCHC 32.2 RDW 14.0 Plt Count 460 H MPV 10.2 Immature Gran % (Auto) 1.6 H Neut % (Auto) 75.4 H Lymph % (Auto) 11.4 L [place] % (Auto) 8.1 Eos % (Auto) 2.8 Baso % (Auto) 0.7 Lymph # (Auto) 1.9 [place] # (Auto) 1.4 H Eos # (Auto) 0.5 H Baso # (Auto) 0.1 Abs Immat Gran (auto) 0.28 H Absolute Neuts (auto) 12.8 H Absolute Nucleated RBC 0.000 Nucleated RBC % (auto) 0.0 Sodium 145 Potassium 3.5 Chloride 115 H Carbon Dioxide 24 Anion Gap 10 L BUN 18 H Creatinine 1.39 Estim Creat Clear Calc 39.9 Estimated GFR 49 Random Glucose 123 H Calcium 8.8 Microbiology Microbiology Results: Microbiology 12/14/24 12:00 Lung - Wash, bilateral Gram Stain - Final 12/14/24 12:00 Lung - Wash, bilateral Routine Culture - Preliminary Culture in progress. 12/09/24 10:31 Blood - Venous Blood Culture - Final No growth after 5 days. 12/09/24 10:31 Blood - Venous Blood Culture - Final No growth after 5 days. Procedures Date of Service Date of Service: 12/15/24 Progress Note: A&P Assessment and plan (1) Bleeding from nasopharynx: Status: Acute Plan Imp: At this time I do not think he is having any sign of UGI bleeding based on his clinical history, stable Hgb, and normal BUN. The blood seen on yesterday's bronchoscopy in the oropharyngeal area seems to have been very nonspecific and could very well have been from the nasopharynx or airway, as opposed to the GI tract. Rec: I will hold off on any endoscopic intervention unless definitive GI bleeding occurs. Continue PPI and observe. I would allow diet as tolerated. Please contact me with any concerns or issues I can be of assistance with. D/W patient in detail. Thanks Time Spent With Patient Time: Total time managing care of this patient today ____ minutes. Quality Stroke Does the patient have a stroke diagnosis?: No VTE Prior VTE?: No VTE Risk Level:: Medical - moderate - high VTE Device Contraindication: N/A - Device Ordered VTE Drug Contraindication: Treatment Not Indicated
[2024-12-15 20:00] VITALS: BP 148/69; PULSE 61; RESP 20; TEMP 36.2; O2SAT 94
[2024-12-15 23:38] VITALS: BP 151/70; PULSE 58; RESP 18; TEMP 36.3; O2SAT 95
[2024-12-16] VITALS (8 sets, daily range): BP systolic 114–162; BP diastolic 66–90; PULSE 59–74; RESP 16–20; TEMP 36.3–37.3; O2SAT 93–97
[2024-12-16] MEDS: Lactated Ringers 1,000 ML 80 ML IVCONT (01:48)
--- NOTE | 2024-12-16 03:17 | ECG_ITS ---
Test Reason : cp Blood Pressure : */* mmHG Vent. Rate : 137 BPM Atrial Rate : * BPM P-R Int : * ms QRS Dur : 146 ms QT Int : 350 ms P-R-T Axes : * -42 147 degrees QTcB Int : 528 ms Wide QRS tachycardia - likely supraventricular rhythm with LBBB Left axis deviation Left bundle branch block Abnormal ECG When compared with ECG of 09-Dec-2024 09:56, Wide QRS tachycardia has replaced Sinus rhythm Vent. rate has increased by 47 bpm Referred By: Marylin Parker Electronically Signed By: FRANCIS REYNOLDS
--- NOTE | 2024-12-16 03:42 | P.EN_ITS ---
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 Patient developed white complex tachycardia. Blood pressure normal and no fever. Old LBBB noted. Patient did not report any pain. Cardiopulmonary exam remarkable for tachycardia, normal rhythm. In the interim of his evaluation, the patient is spontaneously returned to normal sinus rhythm. We will give his Toprol XL now instead of 9 a.m. Time Spent With Patient Time: Total time managing care of this patient today ____ minutes.
[2024-12-16] MEDS: Metoprolol Succinate ER 25 MG TAB.ER.24H PO (04:04)
[2024-12-16 04:10] LABS: Hematocrit 36.8 % (42.0-52.0); Hemoglobin 12.4 g/dl (14.0-18.0); Imm Gran Abs Auto 0.27 X10*3/uL (0.00-0.03); Imm Gran Pct Auto 1.5 % (0.0-0.4); Lymphocytes Absolute Auto 2.4 X10*3/uL (1.2-4.9); MANUAL DIFF FLAG SCAN; Mean Corpuscular HGB Conc 33.7 g/dl (31.0-36.0); Mean Corpuscular Hemoglobin 31.7 pg (27.0-33.0); Mean Corpuscular Volume 94.1 fL (80.0-98.0); NRBC Abs Auto 0.000 X10*3/uL (0.0-0.012); NRBC Pct Auto 0.0 /100WBC (0.0-0.2); Platelet Count 490 X10*3/uL (160-400); Red Blood Count 3.91 X10*6/uL (4.60-5.80); SCAN SMEAR FLAG 1; White Blood Count 18.4 X10*3/uL (4.8-10.8)
[2024-12-16 04:25] LABS: Anion Gap 12 (12-20); Blood Urea Nitrogen 16 mg/dL (9-16); Calcium 9.0 mg/dL (8.4-10.2); Carbon Dioxide 25 mmol/L (22-29); Chloride 111 mmol/L (96-108); Creatinine Clr Calc Pharmacy 40.7; Estimated Glomerular Filt Rate 50; Magnesium 1.8 mg/dL (1.6-2.6); Potassium 3.6 mmol/L (3.3-5.1); Sodium 144 mmol/L (135-145)
[2024-12-16 04:33] LABS: Troponin-I High Sensitivity 23.2 ng/L (<3.5-35.0)
--- NOTE | 2024-12-16 05:57 | PC.NURSE ---
At 0400 pt unresponsive to verbal stimuli , responded to sternal rub. Pt HR 150s, bp and temp WNL, EGK showed Sinus Tachycardia with BBB. Pt returned to NSR, able to stated name, and place . Order rec. 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
--- NOTE | 2024-12-16 11:01 | HO.PM.IMPN ---
Subjective Subjective Date of Service: 12/16/24 Interval History: No new complaints today. Patient feels much better overall. Overnight events reviewed. Despite the patient endorsing history of penicillin allergy, he has been on Zosyn for the past 7 days. Penicillin allergy to be removed from list Review of Systems Review of Systems: Yes all other systems are reviewed and are negative Physical Exam Exam: Exam: General: A&O x3, oriented to time place person and situation, comfortable, no pain Cardiac: S1, S2 auscultated with no S3/4, no MRG. Well perfused. Respiratory: Decreased I/E breath times bilaterally, with crackles auscultated on the left mid and lower zones, and right lower zone. No end expiratory wheezing auscultated. No tripoding, intercostal retractions. GI/ : No abdominal pain on palpation, no masses or distentions. MSK: Normal ambulation without pain at bony prominences or musculature Neurological: Expressive aphasia, normal neurological examination on, no cranial nerve abnormalities Vital Signs: Vital Signs: Last Vital Signs Temp 97.4 F 12/16/24 06:41 Pulse 62 12/16/24 06:41 Resp 18 12/16/24 06:41 BP 137/66 12/16/24 09:49 Pulse Ox 94 12/16/24 06:41 O2 Del Method Room Air 12/16/24 06:41 O2 Flow Rate 10 12/14/24 12:54 FiO2 60 12/14/24 12:54 BMI result Body Mass Index 39.0 Objective Data Active Medications Acetaminophen (Acetaminophen 325 Mg Tablet) 650 mg PO Q6H PRN PRN Reason: Pain, Mild 1-3,fever,headache Last Admin: 12/13/24 20:46 Dose: 650 mg Documented By: TOREY Amlodipine Besylate (Amlodipine Besylate 5 Mg Tablet) 5 mg PO DAILY [facility]; Protocol Last Admin: 12/16/24 09:49 Dose: 5 mg Documented By: SANNA Calcium Carbonate (Calcium Carbonate 750 Mg Tab.Chew) 750 mg PO Q4H PRN PRN Reason: Heartburn Piperacillin Sod/Tazobactam (Sod 3.375 gm/ Sodium Chloride) 50 mls @ 100 mls/hr IV Q6H [facility] Last Admin: 12/16/24 03:32 Dose: Not Given Documented By: JAMSHID Non-Admin Reason: med held Magnesium Hydroxide (Milk Of Magnesia 30 Ml Oral.Susp) 30 ml PO DAILY PRN PRN Reason: Constipation Melatonin (Melatonin 3 Mg Tablet) 6 mg PO BEDTIME PRN PRN Reason: Insomnia Metoprolol Succinate (Metoprolol Succinate Er 25 Mg Tab.Er.24h) 25 mg PO DAILY [facility]; Protocol Last Admin: 12/16/24 04:04 Dose: 25 mg Documented By: JAMSHID Naloxone HCl (Naloxone Hcl 0.4 Mg/Ml Vial) 0.04 mg IVPUSH Q5M PRN PRN Reason: Excessive sedation or RR < 8 Sodium Chloride (0.9 % Sodium Chloride Flush 3 Ml Syringe) 3 ml IVFLUSH QSHIFT [facility] Last Admin: 12/15/24 21:04 Dose: 3 ml Documented By: JAMSHID Thiamine HCl (Thiamine Hcl 100 Mg Tablet) 100 mg PO DAILY [facility] Last Admin: 12/16/24 09:49 Dose: 100 mg Documented By: SANNA Labs 12/16/24 04:04 12/16/24 04:04 Labs: Laboratory Results - last 24 hr 12/16/24 04:04 MCV 94.1 MCH 31.7 MCHC 33.7 RDW 14.0 Plt Count 490 H MPV 9.7 Immature Gran % (Auto) 1.5 H Neut % (Auto) 73.8 H Lymph % (Auto) 13.1 L [place] % (Auto) 8.4 Eos % (Auto) 2.7 Baso % (Auto) 0.5 Lymph # (Auto) 2.4 [place] # (Auto) 1.5 H Eos # (Auto) 0.5 H Baso # (Auto) 0.1 Abs Immat Gran (auto) 0.27 H Absolute Neuts (auto) 13.6 H Absolute Nucleated RBC 0.000 Nucleated RBC % (auto) 0.0 Smear Tech's Comments VERIFIED Anion Gap 12 Estim Creat Clear Calc 40.7 Estimated GFR 50 Random Glucose 98 Calcium 9.0 Magnesium 1.8 Troponin I High Sens 23.2 Microbiology Microbiology Results: Microbiology 12/14/24 12:00 Gram Stain - Final Lung - Wash, bilateral Routine Culture - Final Assessment and Plan (1) Paroxysmal atrial fibrillation: Status: Acute (2) Bleeding from nasopharynx: Status: Acute (3) Upper gastrointestinal bleed: Status: Acute (4) SHIRA (acute kidney injury): Status: Acute (5) Acute hypokalemia: Status: Acute (6) Hypomagnesemia: Status: Acute (7) Acute dehydration: Status: Acute (8) 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 Aspiration pneumonia Continue IV Zosyn Speech therapy consult for swallow evaluation oxygen therapy to keep o2 sat > 90% Regular diet, puree with nectar thick liquids, pills crushed in puree, 1-1 supervision Hemoptysis/ hematemesis Left-sided large volume loculated pleural effusion Active Esophageal bleeding with likely recurrent aspiration Given non specificity of his complaints, CT neck soft tissue was pursued. Revealed lobulated and septated lipoma, right sternocleidomastoid muscle. A heterogenous nodular enlarged right thyroid lobe was also noted The patient has a concerning loculated large volume left-sided pleural effusion. Patient also has a 9 mm gas abnormality in the midline nasopharynx without a discrete mass In the setting of an aspiration pneumonia, the effusion could represent a parapneumonic effusion, or other etiologies. Pulmonary recommendations greatly appreciated. Esophageal bleeding was noted via bronchoscopy 12/14/2024 - patient is likely aspirating esophageal bleeding, which is causing an aspiration pneumonitis. PLAN - gastroenterology was consulted, recommendations greatly appreciated - consulted pulmonology for further recommendations - patient may require thoracentesis for further evaluation of the loculated left-sided pleural effusion - serial chest x-rays to evaluate effusion - continue antibiotics with IV Zosyn Stable HH no further episodes while inpatient non cirrhotic liver on abd ct GI consultation Follow HH IV PPI Hx of stroke with expressive dysphagia speech eval MBSS Hx of alcohol abuse normal bilirubin, mildly elevated ast/alt non cirrhotic liver on abd ct denies daily alcohol abuse, reports last drink in August 2024 PAFIB hold eliquis due to hemoptysis continue BB BPH continue home medications Obesity. BMI 37.9 Discussed importance of weight management as this may be contributing to worsening of other comorbidities [employer] - VTE: SCDs-hold anticoagulation - CODE STATUS: Full code - DIET: [employer] 12/11: Regular diet, puree with nectar thick liquids, pills crushed in puree, 1-1 supervision Total time managing care of this patient today: 35 minutes. Quality Stroke Does the patient have a stroke diagnosis?: No VTE Prior VTE?: No VTE Risk Level:: Medical - moderate - high VTE Device Contraindication: N/A - Device Ordered VTE Drug Contraindication: Treatment Not Indicated
[2024-12-16] MEDS: 0.9 % Sodium Chloride Flush 3 ML SYRINGE IVFLUSH ×2 (11:04→16:51)
[2024-12-17] VITALS (8 sets, daily range): BP systolic 131–161; BP diastolic 65–74; PULSE 52–83; RESP 16–20; TEMP 36.4–37.5; O2SAT 93–95
--- NOTE | 2024-12-17 00:26 | PC.NURSE ---
pt combative and uncooperative, hit me while I was tryitng to administer his antibiotic, refuse care until somebody else will explain to him when he can go home. Nurse Kota hlped calm pt down and I was able to start antibiotic.
[2024-12-17] MEDS: 0.9 % Sodium Chloride Flush 3 ML SYRINGE IVFLUSH ×4 (00:55→20:20)
[2024-12-17 09:21] LABS: Hematocrit 36.7 % (42.0-52.0); Hemoglobin 12.2 g/dl (14.0-18.0); Mean Corpuscular HGB Conc 33.2 g/dl (31.0-36.0); Mean Corpuscular Hemoglobin 31.4 pg (27.0-33.0); Mean Corpuscular Volume 94.6 fL (80.0-98.0); NRBC Abs Auto 0.000 X10*3/uL (0.0-0.012); NRBC Pct Auto 0.0 /100WBC (0.0-0.2); Platelet Count 592 X10*3/uL (160-400); Red Blood Count 3.88 X10*6/uL (4.60-5.80); White Blood Count 20.3 X10*3/uL (4.8-10.8)
[2024-12-17] MEDS: Metoprolol Succinate ER 25 MG TAB.ER.24H PO (09:26)
[2024-12-17 09:40] LABS: Anion Gap 9 (12-20); Blood Urea Nitrogen 15 mg/dL (9-16); Calcium 9.0 mg/dL (8.4-10.2); Carbon Dioxide 26 mmol/L (22-29); Chloride 113 mmol/L (96-108); Creatinine Clr Calc Pharmacy 43.0; Estimated Glomerular Filt Rate 53; Potassium 3.7 mmol/L (3.3-5.1); Sodium 144 mmol/L (135-145)
[2024-12-17 09:58] LABS: Procalcitonin 0.18 ng/mL
--- NOTE | 2024-12-17 12:30 | MHC.SLORD ---
Speech Language Pathology Order Status: MBSS is scheduled for tomorrow 12/18 at 10:30am.
--- NOTE | 2024-12-17 14:51 | MHC.SLORD ---
Speech Language Pathology Order Status: Pt resting, pleasant. Pt in agreement with MBSS planned for tomorrow. Further recc pending results of MBSS.
--- NOTE | 2024-12-17 14:57 | HO.PM.IMPN ---
Subjective Subjective Date of Service: 12/17/24 Interval History: rash on back no apparent distress aphasic no further hemoptysis Review of Systems Review of Systems: Yes Unobtainable due to mental condition Physical Exam Vital Signs: Vital Signs: Last Vital Signs Temp 98.9 F 12/17/24 11:41 Pulse 52 12/17/24 11:21 Resp 20 12/17/24 11:21 BP 131/67 12/17/24 11:21 Pulse Ox 93 12/17/24 11:21 O2 Del Method Room Air 12/17/24 11:21 O2 Flow Rate 10 12/14/24 12:54 FiO2 60 12/14/24 12:54 BMI result Body Mass Index 39.0 Gen: in no acute distress HEENT: sclera anicteric, moist mucus membranes Neck: supple Lungs: bilateral inspiratory crackles Heart: regular rate and rhythm, no murmurs Abd: soft, non-tender, non-distended Ext: no edema Skin: warm/well-perfused Neuro: alert, aphasic Psych: appropriate affect Objective Data Active Medications Acetaminophen (Acetaminophen 325 Mg Tablet) 650 mg PO Q6H PRN PRN Reason: Pain, Mild 1-3,fever,headache Last Admin: 12/17/24 09:27 Dose: 650 mg Documented By: SANNA Amlodipine Besylate (Amlodipine Besylate 5 Mg Tablet) 5 mg PO DAILY [facility]; Protocol Last Admin: 12/17/24 09:26 Dose: 5 mg Documented By: SANNA Calcium Carbonate (Calcium Carbonate 750 Mg Tab.Chew) 750 mg PO Q4H PRN PRN Reason: Heartburn Magnesium Hydroxide (Milk Of Magnesia 30 Ml Oral.Susp) 30 ml PO DAILY PRN PRN Reason: Constipation Melatonin (Melatonin 3 Mg Tablet) 6 mg PO BEDTIME PRN PRN Reason: Insomnia Metoprolol Succinate (Metoprolol Succinate Er 25 Mg Tab.Er.24h) 25 mg PO DAILY [facility]; Protocol Last Admin: 12/17/24 09:26 Dose: 25 mg Documented By: SANNA Naloxone HCl (Naloxone Hcl 0.4 Mg/Ml Vial) 0.04 mg IVPUSH Q5M PRN PRN Reason: Excessive sedation or RR < 8 Pantoprazole Sodium (Pantoprazole Sodium 40 Mg/10 Ml Vial) 40 mg IVPUSH BID@0630,1630 [facility] Last Admin: 12/17/24 09:03 Dose: 40 mg Documented By: SANNA Sodium Chloride (0.9 % Sodium Chloride Flush 3 Ml Syringe) 3 ml IVFLUSH QSHIFT [facility] Last Admin: 12/17/24 09:03 Dose: 3 ml Documented By: SANNA Thiamine HCl (Thiamine Hcl 100 Mg Tablet) 100 mg PO DAILY [facility] Last Admin: 12/17/24 09:26 Dose: 100 mg Documented By: SANNA Labs 12/17/24 09:03 12/17/24 09:03 Labs: Laboratory Results - last 24 hr 12/17/24 09:03 MCV 94.6 MCH 31.4 MCHC 33.2 RDW 13.8 Plt Count 592 H MPV 10.0 Absolute Nucleated RBC 0.000 Nucleated RBC % (auto) 0.0 Anion Gap 9 L Estim Creat Clear Calc 43.0 Estimated GFR 53 Random Glucose 95 Calcium 9.0 Procalcitonin 0.18 Assessment and Plan (1) Paroxysmal atrial fibrillation: Status: Acute (2) Bleeding from nasopharynx: Status: Acute (3) Upper gastrointestinal bleed: Status: Acute (4) SHIRA (acute kidney injury): Status: Acute (5) Acute hypokalemia: Status: Acute (6) Hypomagnesemia: Status: Acute (7) Acute dehydration: Status: Acute (8) 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: Status: Acute (9) Acute UTI: Status: Acute (10) CVA (cerebral vascular accident): Status: Acute (11) Expressive aphasia: Status: Acute (12) Acute bronchitis: Status: Acute (13) Pneumonia: Status: Acute (14) Hypoxia: Status: Acute (15) Hemoptysis: Status: Acute (16) Pleural effusion, left: Status: Acute Plan d9, 84yo M with AF on Eliquis, CVA with expressive aphasia, dysphagia, hx alcohol abuse but sober since August 2024 presenting with hemoptysis and admitted with aspiration PNA aspiration PNA - completed Shama, [employer] following, plan MBSS tomorrow, currently on NDD2 solids/nectar liquids hemoptysis question of hematemesis L pleural effusion, loculated - CT neck soft tissue: lobulated and septated lipoma, right sternocleidomastoid muscle; loculated large volume left-sided pleural effusion; 9 mm gas abnormality in the midline nasopharynx without a discrete mass - in the setting of an aspiration pneumonia, the effusion is likely parapneumonic - Pulm consulted, bronchoscopy done 12/14/24- question of oropharygneal bleeding [esophageal?] - GI: blood seen on yesterday's bronchoscopy in the oropharyngeal area seems to have been very nonspecific and could very well have been from the nasopharynx or airway, as opposed to the GI tract. Rec: I will hold off on any endoscopic intervention unless definitive GI bleeding occurs. Continue PPI and observe. I would allow diet as tolerated - repeat CXR tomorrow to see if effusion improving - H+H stable - IV PPI pAF - Eliquis held due to hemoptysis; continue metoprolol succinate HTN - metoprolol succinate + amlodipine VTE ppx: AC held due to hemoptysis dispo: TBD In my clinical judgment, the patient requires continued inpatient hospitalization for the following reasons: MBSS, hemoptysis Total time managing care of this patient today: 35 minutes. Quality Stroke Does the patient have a stroke diagnosis?: No VTE Prior VTE?: No VTE Risk Level:: Medical - moderate - high VTE Device Contraindication: N/A - Device Ordered VTE Drug Contraindication: Treatment Not Indicated
--- NOTE | 2024-12-17 16:46 | MHC.CM.PN ---
PER MD ROUNDS, PT NOT CLEARED, PT EVAL AND MBSS PENDING
[2024-12-18] VITALS (13 sets, daily range): BP systolic 80–184; BP diastolic 52–87; PULSE 55–150; RESP 12–20; TEMP 36.3–37.5; O2SAT 93–99
[2024-12-18 06:43] LABS: Hematocrit 36.7 % (42.0-52.0); Hemoglobin 12.0 g/dl (14.0-18.0); Mean Corpuscular HGB Conc 32.7 g/dl (31.0-36.0); Mean Corpuscular Hemoglobin 31.5 pg (27.0-33.0); Mean Corpuscular Volume 96.3 fL (80.0-98.0); NRBC Abs Auto 0.000 X10*3/uL (0.0-0.012); NRBC Pct Auto 0.0 /100WBC (0.0-0.2); Platelet Count 653 X10*3/uL (160-400); Red Blood Count 3.81 X10*6/uL (4.60-5.80); White Blood Count 18.9 X10*3/uL (4.8-10.8)
[2024-12-18 07:03] LABS: Anion Gap 11 (12-20); Blood Urea Nitrogen 15 mg/dL (9-16); Calcium 8.7 mg/dL (8.4-10.2); Carbon Dioxide 26 mmol/L (22-29); Chloride 111 mmol/L (96-108); Creatinine Clr Calc Pharmacy 41.7; Estimated Glomerular Filt Rate 51; Potassium 3.6 mmol/L (3.3-5.1); Sodium 144 mmol/L (135-145)
[2024-12-18] MEDS: 0.9 % Sodium Chloride Flush 3 ML SYRINGE IVFLUSH ×2 (08:18→20:51)
[2024-12-18] MEDS: Metoprolol Succinate ER 25 MG TAB.ER.24H PO (08:19)
--- NOTE | 2024-12-18 09:09 | MHC.CM.PN ---
Addendum entered by Viki Davidson 12/18/24 15:55: THIS CM SPOKE AT LENGTH WITH PTS HCP'S SISTER VERONICA, AND [id number] NESSA AT THEIR REQUEST. THIS CM EXPLAINED THAT PT DID AN EVALUATION AND RECOMMENDED STR. NESSA AND VERONICA STATED HE WENT THERE 3 YEARS AGO AND THEY DIDN'T DO ANYTHING FOR HIM THERE. 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 NESSA STATED THAT PT HAD [facility], THEY HELPED HIM 5 DAYS A WEEK. NESSA STATES HE WILL BE CALLING THEM TO SEE IF THEY CAN INCREASE THEIR SERVICES. Addendum entered by Viki Davidson 12/18/24 12:16: PT EVALUATED PT AND RECOMMEND STR. THIS CM PLACED CALL TO [facility] TO INQUIRE RE: PTS [facility]EN[facility]. PER JENNIFER PT DOES NOT HAVE ANY REHAB OR LTC BENEFITS. JENNIFER STATES IF PT COULD PARTICIPATE IN 3 HOURS OF REHAB DAILY, HE WOULD BE COVERED FOR ACUTE REHAB IF IT WERE APPROPRIATE FOR HIM. RAPID RESPONSE CALLED ON PT EARLIER TODAY, PT IS RESTING AT THIS TIME, WILL DISCUSS DISCHARGE PLANS WHEN APPROPRIATE. Addendum entered by Viki Davidson 12/18/24 09:56: HCP COPY RECEIVED, NOW ON FILE. Original Note: THIS CM RECEIVED A MESSAGE TO CALL BACK VERONICA AND NESSA WALLACE (PTS SISTSER AND [id number]), THEY STATED THEY ARE HIS HCP AND ARE LOOKING FOR AN UPDATE. THIS CM PLACED CALL TO [facility] AT THE NUMBER PROVIDED, NESSA STATES THEY HAVE BEEN LOOKING TO GET AN UPDATE ON HIS CONDITION AND WANT TO KNOW WHATS GOING ON WITH HIM. THIS CM INFORMED NESSA THAT WE DO NOT HAVE A HCP ON FILE AND WOULD NEED THAT IN ORDER TO SPEAK WITH THEM. NESSA STATES HE WILL EMAIL A COPY OF THE PTS HCP TO THIS CM.
--- NOTE | 2024-12-18 10:03 | ECG_ITS ---
Test Reason : tachycardia Blood Pressure : */* mmHG Vent. Rate : 160 BPM Atrial Rate : * BPM P-R Int : * ms QRS Dur : 146 ms QT Int : 328 ms P-R-T Axes : * -37 152 degrees QTcB Int : 535 ms Poor data quality, interpretation may be adversely affected Wide QRS tachycardia . most likely atrial flutter with LBBB Left axis deviation Left bundle branch block Abnormal ECG When compared with ECG of 16-Dec-2024 03:17, No significant change was found Referred By: Raghu Delacruz Electronically Signed By: JUAN JOSEPH MD
[2024-12-18 10:27] LABS: Magnesium 1.8 mg/dL (1.6-2.6)
[2024-12-18] MEDS: Amiodarone/Dextrose 150 MG/100 ML PLAST..BAG 600 MG IV (11:45)
--- NOTE | 2024-12-18 11:55 | PM.CNCAR ---
History of Present Illness History of Present Illness Date of Service: 12/18/24 Requesting physician: Raghu Delacruz Consult reason: other (Tachycardia) Chief complaint: Aspiration PNA Hemoptysis Narrative: I was requested to see Kang in his emergent consultation patient may need to wide complex tachycardia. Patient is 84-year-old male with prior history of paroxysmal atrial fibrillation, stroke with dysarthria persistent, tachy-benjamin syndrome, left bundle-branch block in the past. Patient came to the hospital with question hemoptysis. Subsequently also noted to have pleural effusion and possible pneumonia question aspiration. He subsequently underwent a bronchoscopy which showed no clear evidence of bleeding from the respiratory tract and was suspected he might have GI bleed. However he has remained stable in his at recurrent bleeding episodes with hematocrit being stable. He is planned to be sent home today. Few days ago he had a rapid heart rate with wide complex which was consistent with atrial flutter with 2 is to 1 conduction with left bundle-branch block. This morning again his blood pressure is stable and then he went into rapid tachycardia, wide complex. EKG again consistent with possible atrial flutter with left bundle-branch block. He was hemodynamically stable. He had received his monitoring doses of metoprolol and amlodipine. Patient then received 2.5 mg of metoprolol x2. Subsequently patient at that time had no symptoms and denied any symptoms of palpitation. Was completely alert and awake. However his blood pressure continued to drop and went into systolic 80. He became diaphoretic. He again was very agitated as he wants to go home and was told that he might need to go to [facility] very upset. He says that this might be the reason in his heart rate is going tachycardic. He remained almost conscious all the time but gradually continued to have slight deterioration in his mental status and became quite her and somewhat dizzy. He had no chest pain or shortness of breath although. Clinically to be short of breath. I was at bedside for about 20 minutes with him trying to evaluate and treat him. Subsequently we called the rapid response to get bedside assistance with possible performing synchronized cardioversion. Prior to doing so he had received 0.5 mg of digoxin IV push and was getting rapid bolus of IV normal saline as well as got a dose of therapeutic Lovenox. Cardioversion pads were placed on him as patient continued to have systolic blood pressure dropping into the 70s and becoming lethargic. Patient was then given sedation with fentanyl 50 mcg as well as Versed 2 mg to proceed with urgent synchronized cardioversion. However prior to performing any cardioversion patient converted to sinus rhythm. Blood pressure immediately improved to systolic 100. Pulse was improved and bounding. However patient was sedated. Review of Systems Constitutional: Constitutional: Reports no additional constitutional complaints Eyes: Eyes: Reports no additional eye complaints Cardiovascular: Cardiovascular: Denies chest pain, Reports rapid heart rate, Denies leg edema, Reports lightheadedness, Denies Loss of Consciousness and Denies dyspnea Respiratory: Respiratory: Reports no additional respiratory complaints and Denies dyspnea Gastrointestinal: Gastrointestinal: Reports no additional gastrointestinal complaints Genitourinary: Genitourinary: Reports no additional male genitourinary complaints Musculoskeletal: Musculoskeletal: Reports no additional musculoskeletal complaints Integumentary/Breasts: Skin/Breast: Reports system reviewed and no additional complaints, except as docu Neurologic: Reports system reviewed and no additional complaints, except as documented Psychiatric: Psychiatric: Reports no additional psychiatric complaints Endocrine: Endocrine: Reports no additional endocrine complaints Hematologic/Lymphatic: Hematologic/Lymphatic: Reports no additional hematologic/lymphatic complaints [facility] Past Medical History Medical History BPH (benign prostatic hyperplasia) Afib HTN (hypertension) Acute CVA (cerebrovascular accident) Social History Social History Household Members: Unknown / Unable to assess Housing: House Are you a primary medicare insurance specialist to a significant other at home: No Do you presently have visiting nurse or other home services: No Alcohol intake: current Alcohol intake frequency: does not drink Alcohol type: beer Comment: 1:1 sitter. Patient Tobacco Use Status: Former Tobacco user Tobacco use type: Cigarette Cigarette Packs Per Day: 1 Cigarettes Per Day: 20.0 Smoked in Last 30 Days: No e-Cigarette/Vaping Use: Never Used Second Hand Smoke Exposure: No Use of substances other than those prescribed or required for medical reasons: No Currently Displaying Signs/Symptoms of Drug Intoxication Withdrawal: No Have you been hit, kicked, punched, or otherwise hurt by someone within the past year? If so, by whom?: No Do you feel safe in your current relationship?: No Current Relationship Is there a partner from a previous relationship who is making you feel unsafe now?: No Are you made to feel afraid or neglected: No Are you DNR?: No Advance Directives: Yes Advance Directives Information Provided: Yes Advance Directives on File: Yes Advance Directives Date on File: 12/18/24 Do you have a plan to hurt others: No Plan Recently lost weight without trying: No Nutrition Risks: On aspiration precautions Poor oral hygiene: Yes service: Yes Meds Allergies Allergy/AdvReac Type Severity Reaction Status Date / Time amlodipine Allergy Unknown Verified 12/09/24 09:53 diltiazem Allergy Unknown Verified 12/09/24 09:53 spironolactone Allergy Unknown Verified 12/09/24 09:53 Active Medications: Current Medications Acetaminophen (Acetaminophen 325 Mg Tablet) 650 mg PO Q6H PRN PRN Reason: Pain, Mild 1-3,fever,headache Last Admin: 12/17/24 18:37 Dose: 650 mg Amlodipine Besylate (Amlodipine Besylate 5 Mg Tablet) 5 mg PO DAILY [facility]; Protocol Last Admin: 12/18/24 08:29 Dose: 5 mg Apixaban (Apixaban 5 Mg Tablet) 5 mg PO BID [facility] Calcium Carbonate (Calcium Carbonate 750 Mg Tab.Chew) 750 mg PO Q4H PRN PRN Reason: Heartburn Doxazosin Mesylate (Doxazosin Mesylate 2 Mg Tablet) 6 mg PO BID [facility]; Protocol Last Admin: 12/18/24 08:49 Dose: 6 mg Flumazenil (Flumazenil 0.5 Mg/5 Ml Vial) 0.2 mg IVPUSH STAT STA Stop: 12/18/24 11:53 Amiodarone HCl 900 mg/ Sodium (Chloride) 518 mls @ 0 mls/hr IVCONT .Q0M [facility]; Protocol Magnesium Hydroxide (Milk Of Magnesia 30 Ml Oral.Susp) 30 ml PO DAILY PRN PRN Reason: Constipation Melatonin (Melatonin 3 Mg Tablet) 6 mg PO BEDTIME PRN PRN Reason: Insomnia Metoprolol Succinate (Metoprolol Succinate Er 25 Mg Tab.Er.24h) 25 mg PO DAILY [facility]; Protocol Last Admin: 12/18/24 08:19 Dose: 25 mg Naloxone HCl (Naloxone Hcl 0.4 Mg/Ml Vial) 0.04 mg IVPUSH Q5M PRN PRN Reason: Excessive sedation or RR < 8 Pantoprazole Sodium (Pantoprazole Sodium 40 Mg/10 Ml Vial) 40 mg IVPUSH BID@0630,1630 [facility] Last Admin: 12/18/24 05:54 Dose: 40 mg Sodium Chloride (0.9 % Sodium Chloride Flush 3 Ml Syringe) 3 ml IVFLUSH QSHIFT [facility] Last Admin: 12/18/24 08:18 Dose: 3 ml Thiamine HCl (Thiamine Hcl 100 Mg Tablet) 100 mg PO DAILY [facility] Last Admin: 12/18/24 08:19 Dose: 100 mg Home Medications ?Medication ?Instructions ?Recorded ?Confirmed ?Last Taken ?Type allopurinol 100 mg tablet 100 mg PO DAILY 03/14/24 12/09/24 12/08/24 History doxazosin 2 mg tablet 6 mg PO BID 03/14/24 12/09/24 12/08/24 History thiamine HCl (vitamin B1) 100 mg 100 mg PO DAILY 03/14/24 12/09/24 12/08/24 History tablet acetaminophen 500 mg tablet 500 mg PO BEDTIME PRN Pain 12/09/24 12/09/24 Unknown History amlodipine 5 mg tablet 5 mg PO DAILY 12/09/24 12/09/24 12/08/24 History apixaban 5 mg tablet (Eliquis) 2.5 mg PO BID 12/09/24 12/09/24 12/08/24 History hydrochlorothiazide 12.5 mg capsule 12.5 mg PO DAILY 12/09/24 12/09/24 12/08/24 History ketoconazole 2 % shampoo 1 appl topical 2XW PRN Scalp rash 12/09/24 12/09/24 Unknown History ketoconazole 2 % topical cream 1 appl topical BID PRN Seborrheic 12/09/24 12/09/24 Unknown History Dermatitis loperamide 2 mg tablet 2 mg PO DAILY PRN Diarrhea 12/09/24 12/09/24 Unknown History naproxen sodium 220 mg tablet 220 mg PO DAILY PRN Pain 12/09/24 12/09/24 Unknown History omega-3 fatty acids-fish oil 684 1 cap PO DAILY 12/09/24 12/09/24 12/08/24 History mg-1,200 mg capsule,delayed release triamcinolone acetonide 0.1 % 1 appl topical DAILY PRN Itching 12/09/24 12/09/24 Unknown History topical cream Physical Exam Vital Signs: Vital Signs: Last Vital Signs Temp 97.6 F 12/18/24 11:33 Pulse 73 12/18/24 11:33 Resp 16 12/18/24 11:33 BP 102/54 L 12/18/24 11:33 Pulse Ox 96 12/18/24 11:33 O2 Del Method Nasal Cannula 12/18/24 11:33 O2 Flow Rate 2 12/18/24 11:33 FiO2 60 12/14/24 12:54 BMI result Body Mass Index 39.0 Const: General: cooperative, alert, awake, in distress mild and other (Agitated, diaphoretic) Nutritional Appearance: obese Orientation/consciousness: patient oriented x3 HEENT: Head: Yes normocephalic and Yes atraumatic Neck: Neck: Yes trachea midline, Yes supple and Yes no JVD (Pulsatile a waves) Resp: Effort & Inspection: normal respiratory effort Auscultation: clear to auscultation bilaterally and diminished lung sounds Cardio: Rate: tachycardic Rhythm: regular rhythm Heart sounds: S1 normal heart sound present and S2 normal heart sound present GI: Auscultation: normal bowel sounds Skin: General skin exam: no rashes or lesions noted Neuro: General: patient oriented x3, no focal motor deficits and other (Dysarthria present) Extrem: General: Yes no clubbing, cyanosis or edema Objective Labs and Meds 12/18/24 06:22 12/18/24 06:22 Lab results: Laboratory Results - last 24 hr 12/18/24 06:22 WBC 18.9 H RBC 3.81 L Hgb 12.0 L Hct 36.7 L MCV 96.3 MCH 31.5 MCHC 32.7 RDW 13.9 Plt Count 653 H MPV 10.2 Absolute Nucleated RBC 0.000 Nucleated RBC % (auto) 0.0 Sodium 144 Potassium 3.6 Chloride 111 H Carbon Dioxide 26 Anion Gap 11 L BUN 15 Creatinine 1.33 Estim Creat Clear Calc 41.7 Estimated GFR 51 Random Glucose 101 Calcium 8.7 Magnesium 1.8 EKG consistent with wide complex tachycardia suggestive of atrial flutter with 2 is to 1 conduction with left bundle-branch block Imaging Radiologist's impression: Impressions Chest X-Ray 12/17/24 15:12 IMPRESSION: No significant interval change. Layering small to moderate left effusion with underlying left basilar parenchymal opacity. Electronically signed by: Facundo Greene MD 12/17/2024 04:16 PM EDT RP Assessment and Plan (1) Wide-complex tachycardia: Status: Acute Wide complex tachycardia most likely atrial flutter with 2 is to 1 conduction with left bundle-branch block which is present underlying from before. Patient became gradually hemodynamically unstable possibly related to persistent tachycardia as well as possible relative hypovolemia as well as use of medications including boluses of metoprolol. Patient was planned to undergo urgent cardioversion and was sedated but prior to that cardioverted to by himself to normal rhythm after medications with digoxin. Patient's blood pressure immediately improved and became hemodynamically stable. Patient's sedation will be reverse. Will start him on IV amiodarone drip to maintain rhythm to prevent recurrent tachyarrhythmias. Continue metoprolol. Patient has already been given dose of Lovenox as that has not been any active bleeding and will be switch to Eliquis starting today. Continue blood pressure control and watching blood pressure frequently at bedside. Hold off on amlodipine therapy at this point in time. Can pursue echocardiogram later today. Greater than 40 minutes was spent that patient's bedside and managing patient's care. Procedures Date of Service Date of Service: 12/18/24
--- NOTE | 2024-12-18 12:07 | PC.NURSE ---
10:05 Patient flipped into a wide set complex, Vtach vs SVT vs aflutter, inspector heating and refrigeration on unit. EKG demonstrated aflutter 2.5mg IVP lopressor initially administered w/ no change. Additional dose of 2.5mg IVP lopressor administered w/ no change to rhythm, SBP dropped into 80's. Manager Diversity to bedside with hospitalist, 500 mL bolus of NS 0.9% hung, digoxin administered IVP, lovenox SQ administered in prep for cardioversion. Patient initially refusing bedside cardioversion, but became symptomatic demonstrated by mental status waxing and waning, diaphoretic, ford in color decided emergent bedside cardioversion was necessary, so rapid response was called. Additional IV placed in L upper forearm #20G 1110: 50mcg fentanyl administered 78/55, HR 130's, O2 95% 1111: 2 mg versed administered, spontaneously converted to NSR w/ PACs HR in 70's with positive pulse, BP 108/58 1114: 0.4mg Narcan administered, 92% 2L nasal cannula 1117: 0.2 mg flumazenil administered over 2 minutes 1120: BP 87/54 1121: 92/53, additional IV placed L lower arm #20G 1122: End Rapid Response Documented under Rapid Response Intervention
--- NOTE | 2024-12-18 16:57 | HO.PM.IMPN ---
Subjective Subjective Date of Service: 12/18/24 Interval History: pt went into sustained wide-complex tachycardia, appeared to be atrial flutter 2:1 conduction with LBBB BP 136/ given 2.5 mg IV metoprolol x2 without improvement, SBP then dropped to 80s given 0.5 mg IV digoxin, also 90 mg SQ enoxaparin, 500 mL NS became diaphoretic, BP in 70s, GENERAL FOREMAN called [employer] at bedside, planned emergency cardioversion given 50 mcg IV fentanyl + 2 mg IV midazolam with planned synchronized DC CV but pt converted on own to NS with improvement in BP to 100s/ given 0.2 mg IV flumazenil + 0.4 mg IV naloxone to reverse sedation started amiodarone drip currently rate in 50s, BP 133/61 Review of Systems Review of Systems: Yes all other systems are reviewed and are negative Physical Exam Vital Signs: Vital Signs: Last Vital Signs Temp 97.6 F 12/18/24 11:33 Pulse 60 12/18/24 15:15 Resp 18 12/18/24 15:15 BP 133/61 12/18/24 15:15 Pulse Ox 94 12/18/24 15:15 O2 Del Method Room Air 12/18/24 15:15 O2 Flow Rate 2 12/18/24 11:58 FiO2 60 12/14/24 12:54 Oxygen Flow Rate 2 12/18/24 11:58 BMI result Body Mass Index 39.0 Gen: agitated HEENT: sclera anicteric, moist mucus membranes Neck: supple Lungs: diminished Heart: rapid, regular, no murmurs Abd: soft, non-tender, non-distended Ext: no edema Skin: dusky, cool/clammy Neuro: alert and oriented x3, some degree of expressive aphasia Psych: appropriate affect Objective Data Active Medications Acetaminophen (Acetaminophen 325 Mg Tablet) 650 mg PO Q6H PRN PRN Reason: Pain, Mild 1-3,fever,headache Last Admin: 12/17/24 18:37 Dose: 650 mg Documented By: SANNA Amlodipine Besylate (Amlodipine Besylate 5 Mg Tablet) 5 mg PO DAILY [facility]; Protocol Last Admin: 12/18/24 08:29 Dose: 5 mg Documented By: PONCE Apixaban (Apixaban 5 Mg Tablet) 5 mg PO BID [facility] Calcium Carbonate (Calcium Carbonate 750 Mg Tab.Chew) 750 mg PO Q4H PRN PRN Reason: Heartburn Doxazosin Mesylate (Doxazosin Mesylate 2 Mg Tablet) 6 mg PO BID [facility]; Protocol Last Admin: 12/18/24 08:49 Dose: 6 mg Documented By: PUJA Amiodarone HCl 900 mg/ Sodium (Chloride) 518 mls @ 0 mls/hr IVCONT .Q0M [facility]; Protocol Last Admin: 12/18/24 12:01 Dose: 1 mg/min, 34.53 mls/hr Documented By: PUJA Magnesium Hydroxide (Milk Of Magnesia 30 Ml Oral.Susp) 30 ml PO DAILY PRN PRN Reason: Constipation Melatonin (Melatonin 3 Mg Tablet) 6 mg PO BEDTIME PRN PRN Reason: Insomnia Metoprolol Succinate (Metoprolol Succinate Er 25 Mg Tab.Er.24h) 25 mg PO DAILY [facility]; Protocol Last Admin: 12/18/24 08:19 Dose: 25 mg Documented By: PONCE Naloxone HCl (Naloxone Hcl 0.4 Mg/Ml Vial) 0.04 mg IVPUSH Q5M PRN PRN Reason: Excessive sedation or RR < 8 Pantoprazole Sodium (Pantoprazole Sodium 40 Mg/10 Ml Vial) 40 mg IVPUSH BID@0630,1630 [facility] Last Admin: 12/18/24 16:31 Dose: 40 mg Documented By: PUJA Sodium Chloride (0.9 % Sodium Chloride Flush 3 Ml Syringe) 3 ml IVFLUSH QSHIFT [facility] Last Admin: 12/18/24 16:21 Dose: Not Given Documented By: PUJA Non-Admin Reason: IV Running Thiamine HCl (Thiamine Hcl 100 Mg Tablet) 100 mg PO DAILY [facility] Last Admin: 12/18/24 08:19 Dose: 100 mg Documented By: PONCE Labs 12/18/24 06:22 12/18/24 06:22 Labs: Laboratory Results - last 24 hr 12/18/24 06:22 MCV 96.3 MCH 31.5 MCHC 32.7 RDW 13.9 Plt Count 653 H MPV 10.2 Absolute Nucleated RBC 0.000 Nucleated RBC % (auto) 0.0 Anion Gap 11 L Estim Creat Clear Calc 41.7 Estimated GFR 51 Random Glucose 101 Calcium 8.7 Magnesium 1.8 Assessment and Plan (1) Paroxysmal atrial fibrillation: Status: Acute (2) Bleeding from nasopharynx: Status: Acute (3) Upper gastrointestinal bleed: Status: Acute (4) SHIRA (acute kidney injury): Status: Acute (5) Acute hypokalemia: Status: Acute (6) Hypomagnesemia: Status: Acute (7) Acute dehydration: Status: Acute (8) 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: Status: Acute (9) Acute UTI: Status: Acute (10) CVA (cerebral vascular accident): Status: Acute (11) Expressive aphasia: Status: Acute (12) Acute bronchitis: Status: Acute (13) Pneumonia: Status: Acute (14) Hypoxia: Status: Acute (15) Hemoptysis: Status: Acute (16) Pleural effusion, left: Status: Acute Plan d10, 84yo M with AF on Eliquis, CVA with expressive aphasia, dysphagia, hx alcohol abuse but 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 Normal LV ejection fraction of 60 65% with mild LVH with impaired relaxation filling pattern 2. Early mild aortic stenosis noted 3. Mildly dilated ascending aorta 4. No gross pericardial effusion aspiration PNA - completed Zosyn, MANAGER PRIVACY following, plan MBSS tomorrow, currently on NDD2 solids/nectar liquids hemoptysis question of hematemesis L pleural effusion, loculated - CT neck soft tissue: lobulated and septated lipoma, right sternocleidomastoid muscle; loculated large volume left-sided pleural effusion; 9 mm gas abnormality in the midline nasopharynx without a discrete mass - in the setting of an aspiration pneumonia, the effusion is likely parapneumonic - Pulm consulted, bronchoscopy done 12/14/24- question of oropharygneal bleeding [esophageal?]. Discussed with Pulm today; effusion small and improving, repeat CXR in a few days - GI: blood seen on yesterday's bronchoscopy in the oropharyngeal area seems to have been very nonspecific and could very well have been from the nasopharynx or airway, as opposed to the GI tract. Rec: I will hold off on any endoscopic intervention unless definitive GI bleeding occurs. Continue PPI and observe. I would allow diet as tolerated - H+H stable - IV PPI HTN - metoprolol succinate, d/c amlodipine VTE ppx: apixaban dispo: TBD In my clinical judgment, the patient requires continued inpatient hospitalization for the following reasons: amiodarone load/infusion for unstable WCT, MBSS Total time managing care of this patient today: 120 minutes. Quality Stroke Does the patient have a stroke diagnosis?: No VTE Prior VTE?: No VTE Risk Level:: Medical - moderate - high VTE Device Contraindication: N/A - Device Ordered VTE Drug Contraindication: Treatment Not Indicated
--- NOTE | 2024-12-18 17:00 | CA_ITS ---
Transthoracic Echocardiogram Patient (Last, First, Middle): Kang Wilder, Gender: Male Date of : 1940 Age: 84 Procedure Date: 12/18/2024 Procedure Type: Transthoracic Echocardiogram [place] [facility] [place]: 185.42 cm Weight: 93.44 kg BSA: 2.18 m2 Heart Rate: bpm BP: 164 / 70 mmHg Dairy Clerk: VH/RC Referring MD: Raghu Delacruz MD Document Control Specialist: Moises Foley MD Symptoms: wide complex tachycardia Study Quality: Technically Difficult ECG Rhythm: Sinus Conclusions: - 1. Normal LV ejection fraction of 60 65% with mild LVH with impaired relaxation filling pattern 2. Early mild aortic stenosis noted 3. Mildly dilated ascending aorta 4. No gross pericardial effusion Findings Procedure Information Contrast agent, definity, is being given per protocol without apparent complications. Left Ventricle Normal left ventricular size and systolic function. There is mildly increased left ventricular wall thickness. The visually estimated ejection fraction is between 60-65%. There is paradoxical septal motion consistent with a left bundle branch block. Spectral Doppler is indicative of an impaired relaxation filling pattern. Right Ventricle The right ventricle was not well visualized. Atria The left atrium was not well visualized. Interatrial shunt cannot be excluded. The right atrium was not well visualized. Aortic Valve There is moderate calcification of the aortic valve. There is mild aortic valve stenosis. There is no aortic valve regurgitation. Mitral Valve There is mild anterior and posterior mitral leaflet thickening. There is mild mitral annular calcification. There is trace mitral valve regurgitation. There is no mitral valve stenosis. Pulmonic Valve The pulmonic valve was not well visualized. Tricuspid Valve The tricuspid valve was not well visualized. Tricuspid regurgitation envelope is inadequate for calculation of right ventricular systolic pressure. Great Vessels The aorta was not well visualized. The pulmonary artery was not well visualized. There is mild dilatation of the ascending aorta measuring 4.20 cm. Venous The inferior vena cava is normal in size. Pericardium/Pleural There is no evidence of pericardial effusion. Prior Study Comparison No significant change compared to prior study dated: 03/16/2024. Measurements 2D Linear Measurements IVSd: 1.27 0.6-0.9/0.6-1.0 cm LVIDd: 4.49 3.9-5.3/4.2-5.9 cm LVIDd Index: 2.06 2.4-3.2/2.2-3.1 cm/m2 LVIDs: 3.12 2.0-3.6 cm LVPWd: 1.28 0.7-1.1 cm LA Diam: 2.20 2.7-3.8/3.0-4.0 cm LAIDs Index: 1.01 1.5-2.3 cm/m2 LV Mass: 268.73 67-162/88-224 g LV Mass Index: 123.27 43-95/49-115 g/m2 LVOT Diam: 2.20 3.0+(-)1.3 cm 2D Systolic Function EF 4C: 64.30 >55% EF 2C: 67.50 >55% EF BiP: 65.00 >55% Mitral Valve MV Pk E: 0.49 MV PK A: 0.88 MV Decel Time: 309.00 E/A: 0.60 E'Lateral: 6.20 E'Medial: 4.57 E/E' Med: 10.70 E/E' Lat: 7.90 PHT: 90.00 MVA PHT: 2.44 Decel Daniels: 1.58 Aortic Valve AoV Pk Jens: 2.07 AoV Mn Jens: 1.40 AoV VTI: 0.41 AoV Pk Grad: 17.00 Aov Mn Grad: 10.00 CRISSY Cont.VTI: 2.21 LVOT LVOT Pk Jens: 1.16 LVOT Mn Jens: 0.77 LVOT VTI: 0.24 LVOT Pk Grad: 5.00 LVOT Mn Grad: 3.00 LVOT Diam: 2.20 LVOT Area: 3.80 Diastolic Function MV Pk E: 0.49 MV Pk A: 0.88 E/A: 0.60 E'Medial: 4.57 E/E' Med: 10.70 E' Laterial: 6.20 E/E' Lat: 7.90 Right Ventricle TAPSE (mm): 23.60 TVS' Jens: 11.10 Tricuspid Valve TR Pk Jens: 1.76 TR Pk Grad: 12.00 Great Vessels Aorta Sinus of Valsalva: 3.70 2.0-3.5 cm Ao Asc: 4.20 2.1-3.4 cm Pulmonary Valve PV Pk Jens: 1.14 Peak PV Grad: 5.00 Updated in Other Vendor System with Status of Final Moises Alaina MD electronically signed on 12/18/2024 2:55:15 PM with status of Final
--- NOTE | 2024-12-18 17:47 | MHC.SLORD ---
Speech Language Pathology Order Status: Patient not seen for MBSS today, will be rescheduled with next available inpatient appointment. Patient had RR called today, not seen for swallow tx 12/18.
[2024-12-19] VITALS (8 sets, daily range): BP systolic 119–155; BP diastolic 56–76; PULSE 56–65; RESP 16–20; TEMP 36.1–36.8; O2SAT 93–98
[2024-12-19 06:44] LABS: Hematocrit 34.5 % (42.0-52.0); Hemoglobin 11.1 g/dl (14.0-18.0); Mean Corpuscular HGB Conc 32.2 g/dl (31.0-36.0); Mean Corpuscular Hemoglobin 31.3 pg (27.0-33.0); Mean Corpuscular Volume 97.2 fL (80.0-98.0); NRBC Abs Auto 0.000 X10*3/uL (0.0-0.012); NRBC Pct Auto 0.0 /100WBC (0.0-0.2); Platelet Count 599 X10*3/uL (160-400); Red Blood Count 3.55 X10*6/uL (4.60-5.80); White Blood Count 15.9 X10*3/uL (4.8-10.8)
[2024-12-19 07:05] LABS: Anion Gap 10 (12-20); Blood Urea Nitrogen 15 mg/dL (9-16); Calcium 8.4 mg/dL (8.4-10.2); Carbon Dioxide 26 mmol/L (22-29); Chloride 113 mmol/L (96-108); Creatinine Clr Calc Pharmacy 39.9; Estimated Glomerular Filt Rate 49; Magnesium 1.7 mg/dL (1.6-2.6); Potassium 3.7 mmol/L (3.3-5.1); Sodium 145 mmol/L (135-145)
[2024-12-19 07:21] LABS: Procalcitonin 0.14 ng/mL
[2024-12-19] MEDS: Metoprolol Succinate ER 25 MG TAB.ER.24H PO (09:03)
[2024-12-19] MEDS: 0.9 % Sodium Chloride Flush 3 ML SYRINGE IVFLUSH ×3 (09:07→21:08)
--- NOTE | 2024-12-19 10:22 | P.PNCA_ITS ---
Subjective Subjective Date of Service: 12/19/24 Principal diagnosis: Atrial flutter Interval history: Patient is doing well today. Overnight no significant tachycardia. Around amiodarone drip. Hemodynamically stable. Doing well. Echocardiogram shows normal LV ejection fraction with mild aortic stenosis. Review of Systems Constitutional: Reports no additional constitutional complaints Cardiovascular: Denies chest pain, Denies rapid heart rate, Denies Loss of Consciousness and Denies dyspnea Respiratory: Denies dyspnea Gastrointestinal: Denies no additional gastrointestinal complaints Genitourinary: Denies no additional male genitourinary complaints Denies system reviewed and no additional complaints, except as documented Physical Exam Vital Signs: Last Vital Signs Temp 98.1 F 12/19/24 07:09 Pulse 59 12/19/24 07:09 Resp 18 12/19/24 07:09 BP 138/76 12/19/24 09:03 Pulse Ox 97 12/19/24 07:09 O2 Del Method Nasal Cannula 12/19/24 07:09 O2 Flow Rate 3 12/19/24 07:09 FiO2 60 12/14/24 12:54 Oxygen Flow Rate 2 12/18/24 11:58 BMI result Body Mass Index 39.0 Const General: cooperative, alert, awake, in distress mild and other (Agitated, diaphoretic) Nutritional Appearance: obese Orientation/consciousness: patient oriented x3 HEENT Head: Yes normocephalic and Yes atraumatic Neck Neck: Yes trachea midline, Yes supple and Yes no JVD (Pulsatile a waves) Resp Effort & Inspection: normal respiratory effort Auscultation: clear to auscultation bilaterally and diminished lung sounds Cardio Rate: regular rate Rhythm: regular rhythm Heart sounds: S1 normal heart sound present, S2 normal heart sound present and Murmur heart sound present systolic early GI Auscultation: normal bowel sounds Skin General skin exam: no rashes or lesions noted Neuro General: patient oriented x3, no focal motor deficits and other (Dysarthria present) Extrem General: Yes no clubbing, cyanosis or edema Objective Labs and Meds 12/19/24 06:27 12/19/24 06:27 Lab results: Laboratory Results - last 24 hr 12/18/24 12/19/24 06:22 06:27 WBC 15.9 H RBC 3.55 L Hgb 11.1 L Hct 34.5 L MCV 97.2 MCH 31.3 MCHC 32.2 RDW 14.0 Plt Count 599 H MPV 10.2 Absolute Nucleated RBC 0.000 Nucleated RBC % (auto) 0.0 Sodium 145 Potassium 3.7 Chloride 113 H Carbon Dioxide 26 Anion Gap 10 L BUN 15 Creatinine 1.39 Estim Creat Clear Calc 39.9 Estimated GFR 49 Random Glucose 98 Calcium 8.4 Magnesium 1.8 1.7 Procalcitonin 0.14 Progress Note: A&P Assessment and plan (1) Paroxysmal atrial fibrillation: Status: Acute Assessment and Plan: Paroxysmal atrial fibrillation flutter in this elderly gentleman with wide complex tachycardia yesterday most likely atrial flutter with left bundle-branch block. Patient is currently asymptomatic. Will switch him to p.o. amiodarone 200 mg b.i.d. for a month loading followed by 200 mg daily. Hold other rate lowering medications. Can restart oral anticoagulation therapy with Eliquis, would be on 5 mg b.i.d. given his weight and kidney functions. Continue aggressive blood pressure control. Discontinue metoprolol. 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 Thank you for allowing me to partake in his care. Patient can be discharged from our perspective. Will sign of the case Time Spent With Patient Time: Total time managing care of this patient today ____ minutes. Progress Note: Quality Stroke Does the patient have a stroke diagnosis?: No Procedures Date of Service Date of Service: 12/19/24
--- NOTE | 2024-12-19 12:20 | MHC.CM.PN ---
THIS CM MET WITH PT TO DISCUSS DISCHARGE PLANS, HE DOES NOT WANT TO GO TO [facility], HE PLANS TO RETURN HOME WITH RESUMPTION OF HIS PREVIOUS SERVICES.
--- NOTE | 2024-12-19 13:53 | MHC.SLORD ---
Speech Language Pathology Order Status: Pt not seen by RECONCILEMENT CLERK 12/19.
--- NOTE | 2024-12-19 15:37 | HO.PM.IMPN ---
Subjective Subjective Date of Service: 12/19/24 Interval History: remains in sinus bradycardia/normal sinus rhythm no dyspnea no cough refuses STR Review of Systems Review of Systems: Yes all other systems are reviewed and are negative Physical Exam Vital Signs: Vital Signs: Last Vital Signs Temp 97.4 F 12/19/24 15:24 Pulse 58 12/19/24 15:24 Resp 20 12/19/24 15:24 BP 155/67 H 12/19/24 15:24 Pulse Ox 98 12/19/24 15:24 O2 Del Method Nasal Cannula 12/19/24 15:24 O2 Flow Rate 3 12/19/24 15:24 FiO2 60 12/14/24 12:54 Oxygen Flow Rate 2 12/18/24 11:58 BMI result Body Mass Index 39.0 Gen: in no acute distress HEENT: sclera anicteric, moist mucus membranes Neck: supple Lungs: diminished L base Heart: regular rate and rhythm, no murmurs Abd: soft, non-tender, non-distended Ext: no edema Skin: warm/well-perfused Neuro: alert, some expressive aphasia Psych: appropriate affect Objective Data Active Medications Acetaminophen (Acetaminophen 325 Mg Tablet) 650 mg PO Q6H PRN PRN Reason: Pain, Mild 1-3,fever,headache Last Admin: 12/17/24 18:37 Dose: 650 mg Documented By: SANNA Amiodarone HCl (Amiodarone Hcl 200 Mg Tablet) 200 mg PO BID [facility] Last Admin: 12/19/24 12:27 Dose: 200 mg Documented By: AKILA Apixaban (Apixaban 5 Mg Tablet) 5 mg PO BID [facility] Last Admin: 12/19/24 09:03 Dose: 5 mg Documented By: CITLALI Calcium Carbonate (Calcium Carbonate 750 Mg Tab.Chew) 750 mg PO Q4H PRN PRN Reason: Heartburn Doxazosin Mesylate (Doxazosin Mesylate 2 Mg Tablet) 6 mg PO BID [facility]; Protocol Last Admin: 12/19/24 09:03 Dose: 6 mg Documented By: CITLALI Magnesium Hydroxide (Milk Of Magnesia 30 Ml Oral.Susp) 30 ml PO DAILY PRN PRN Reason: Constipation Melatonin (Melatonin 3 Mg Tablet) 6 mg PO BEDTIME PRN PRN Reason: Insomnia Naloxone HCl (Naloxone Hcl 0.4 Mg/Ml Vial) 0.04 mg IVPUSH Q5M PRN PRN Reason: Excessive sedation or RR < 8 Omeprazole (Omeprazole 20 Mg Capsule.Dr) 20 mg PO BID@0630,1630 [facility] Sodium Chloride (0.9 % Sodium Chloride Flush 3 Ml Syringe) 3 ml IVFLUSH QSHIFT [facility] Last Admin: 12/19/24 09:07 Dose: 3 ml Documented By: CITLALI Thiamine HCl (Thiamine Hcl 100 Mg Tablet) 100 mg PO DAILY [facility] Last Admin: 12/19/24 09:03 Dose: 100 mg Documented By: CITLALI Labs 12/19/24 06:27 12/19/24 06:27 Labs: Laboratory Results - last 24 hr 12/19/24 06:27 MCV 97.2 MCH 31.3 MCHC 32.2 RDW 14.0 Plt Count 599 H MPV 10.2 Absolute Nucleated RBC 0.000 Nucleated RBC % (auto) 0.0 Anion Gap 10 L Estim Creat Clear Calc 39.9 Estimated GFR 49 Random Glucose 98 Calcium 8.4 Magnesium 1.7 Procalcitonin 0.14 Assessment and Plan (1) Paroxysmal atrial fibrillation: Status: Acute (2) Bleeding from nasopharynx: Status: Acute (3) Upper gastrointestinal bleed: Status: Acute (4) SHIRA (acute kidney injury): Status: Acute (5) Acute hypokalemia: Status: Acute (6) Hypomagnesemia: Status: Acute (7) Acute dehydration: Status: Acute (8) 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: Status: Acute (9) Acute UTI: Status: Acute (10) CVA (cerebral vascular accident): Status: Acute (11) Expressive aphasia: Status: Acute (12) Acute bronchitis: Status: Acute (13) Pneumonia: Status: Acute (14) Hypoxia: Status: Acute (15) Hemoptysis: Status: Acute (16) Pleural effusion, left: Status: Acute Plan d11, 84yo M with AF on Eliquis, CVA with expressive aphasia, dysphagia, hx alcohol abuse but sober since August 2024 presenting with hemoptysis and admitted with aspiration PNA hospitalization complicated by unstable wide-complex tachycardia (AF with 2:1 conduction + LBBB) on 12/18 paroxysmal AF/RVR, LBBB - Eliquis had been held due to hemoptysis; resumed 12/18; change amiodarone infusion to 200 mg PO bid x 1 month then 200 mg PO daily - d/c metoprolol succinate - 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 Normal LV ejection fraction of 60 65% with mild LVH with impaired relaxation filling pattern 2. Early mild aortic stenosis noted 3. Mildly dilated ascending aorta 4. No gross pericardial effusion aspiration PNA - completed Zopope[employer], ASSOCIATE FINANCIAL REPRESENTATIVE following, plan MBSS tomorrow, currently on NDD2 solids/nectar liquids hemoptysis question of hematemesis L pleural effusion, loculated - CT neck soft tissue: lobulated and septated lipoma, right sternocleidomastoid muscle; loculated large volume left-sided pleural effusion; 9 mm gas abnormality in the midline nasopharynx without a discrete mass - in the setting of an aspiration pneumonia, the effusion is likely parapneumonic - Pulm consulted, bronchoscopy done 12/14/24- question of oropharygneal bleeding [esophageal?]. Discussed with Pulm; effusion small and improving, will repeat CXR tomorrow - GI: blood seen on yesterday's bronchoscopy in the oropharyngeal area seems to have been very nonspecific and could very well have been from the nasopharynx or airway, as opposed to the GI tract. Rec: I will hold off on any endoscopic intervention unless definitive GI bleeding occurs. Continue PPI and observe. I would allow diet as tolerated - H+H stable - IV->PO HTN - off metoprolol succinate and amlodipine VTE ppx: apixaban dispo: STR recommended, pt refused, will go home with VNA In my clinical judgment, the patient requires continued inpatient hospitalization for the following reasons: MBSS Total time managing care of this patient today: 40 minutes. Quality Stroke Does the patient have a stroke diagnosis?: No VTE Prior VTE?: No VTE Risk Level:: Medical - moderate - high VTE Device Contraindication: N/A - Device Ordered VTE Drug Contraindication: Treatment Not Indicated
[2024-12-20] VITALS (9 sets, daily range): BP systolic 117–156; BP diastolic 60–74; PULSE 58–74; RESP 17–20; TEMP 36.2–36.9; O2SAT 87–97
--- NOTE | 2024-12-20 09:37 | HO.WOUND ---
Wound Consult: Initial 84 yr old [place] [facility] [place] - See progress notes and H&P for detailed history. Wound consult placed for buttocks. Patient agreeable to assessment and photo documentation. Patient with recent increased episodes of fecal incontinence. Patient assessed during incontinent care with AGENCY SALES REPRESENTATIVE, patient up to chair for breakfast with waffle cushion. Buttocks Etiology: MASD/IAD with moisture fissure Wound Bed: largely intact moist pink/purple blanching from gluteal cleft extending down perianal and perineum, linear superficial opening to base of gluteal fold. Drainage / Odor: none Lori wound: ? No Induration, Fluctuance or Warmth noted Pain: none Goals of Treatment: ? moisture management, triad paste for moisture barrier Left upper back Etiology: Skin tear/abrasion Measurements: 1cm x 4cm x 0.1cm Wound Bed: superficial, moist pink, mild redness surrounding, entire area blanching. Drainage / Odor: scant serous, no odor Edges: ? irregular Lori wound: ? No Induration, Fluctuance or Warmth noted Pain: none Goals of Treatment: ? moist healing with foam groin/scrotum Etiology: MASD/IAD with fungal Wound Bed: moist red with satellite lesions Drainage / Odor: none Edges: ? diffuse Lori wound: ? No Induration, Fluctuance or Warmth noted Pain: none Goals of Treatment: ?antifungal per provider order, moisture management Recommendations: 1. Turn and Reposition every 2 hours and as needed for patient comfort. Use pillows or wedges to support off loading positions. 2. Off Load all bony prominences with use of pillows and heel boots if needed. Apply Preventative foams where needed. 3. Monitor for incontinence and moisture control, use barrier creams when needed for prevention and treatment. 4. Provide adequate and supplemental nutrition. 5. Order or Continue low air loss mattress. 6. When applicable maintain blood glucose levels per Providers order. Buttocks/gluteal: Off Load Pressure with Q2 hr turns and use of pillows - Cleanse with PH balance spray or wipes, pat dry. ?Apply thin layer of Triad to wound bed - only pat and dab no scrub and rub when soiling occurs. Reapply thin layer PRN after each episode of incontinence. Groin/scrotum: gentle routine hygiene and incontinence care with pH balanced cleanser and bath wipes. antifungal medication per provider orders: apply a light dusting to prevent caking. apply triad paste/barrier cream on top of antifungal BID and PRN. Left upper back: cleanse with normal saline, pat dry, apply skin prep lori wound, apply foam dressing, change every 3 days and PRN Re-consult wound care Nurse for wound deterioration or wound changes.
[2024-12-20 10:52] LABS: CDiff Gene PCR NEGATIVE (Negative)
--- NOTE | 2024-12-20 10:54 | HO.PM.IMPN ---
Subjective Subjective Date of Service: 12/20/24 Interval History: was somewhat confused, did not realize he was sitting in his own stool refuses STR but unclear if he understands why he cannot go home unable to walk on own MBSS pending no cough no further WCT Review of Systems Review of Systems: Yes all other systems are reviewed and are negative Physical Exam Vital Signs: Vital Signs: Last Vital Signs Temp 97.2 F 12/20/24 07:28 Pulse 62 12/20/24 07:28 Resp 20 12/20/24 07:28 BP 156/74 H 12/20/24 07:28 Pulse Ox 97 12/20/24 07:28 O2 Del Method Nasal Cannula 12/20/24 07:28 O2 Flow Rate 1 12/20/24 07:28 FiO2 60 12/14/24 12:54 Oxygen Flow Rate 2 12/18/24 11:58 BMI result Body Mass Index 39.0 Gen: in no acute distress HEENT: sclera anicteric, moist mucus membranes Neck: supple Lungs: diminished L base Heart: regular rate and rhythm, no murmurs Abd: soft, non-tender, non-distended Ext: no edema Skin: warm/well-perfused Neuro: alert, some expressive aphasia Psych: appropriate affect Objective Data Active Medications Acetaminophen (Acetaminophen 325 Mg Tablet) 650 mg PO Q6H PRN PRN Reason: Pain, Mild 1-3,fever,headache Last Admin: 12/19/24 21:08 Dose: 650 mg Documented By: DILCIA Amiodarone HCl (Amiodarone Hcl 200 Mg Tablet) 200 mg PO BID [facility] Last Admin: 12/20/24 09:00 Dose: 200 mg Documented By: NAYAN Apixaban (Apixaban 5 Mg Tablet) 5 mg PO BID [facility] Last Admin: 12/20/24 09:00 Dose: 5 mg Documented By: NAYAN Calcium Carbonate (Calcium Carbonate 750 Mg Tab.Chew) 750 mg PO Q4H PRN PRN Reason: Heartburn Doxazosin Mesylate (Doxazosin Mesylate 2 Mg Tablet) 6 mg PO BID [facility]; Protocol Last Admin: 12/20/24 08:59 Dose: 6 mg Documented By: NAYAN Magnesium Hydroxide (Milk Of Magnesia 30 Ml Oral.Susp) 30 ml PO DAILY PRN PRN Reason: Constipation Melatonin (Melatonin 3 Mg Tablet) 6 mg PO BEDTIME PRN PRN Reason: Insomnia Last Admin: 12/19/24 21:08 Dose: 6 mg Documented By: DILCIA Naloxone HCl (Naloxone Hcl 0.4 Mg/Ml Vial) 0.04 mg IVPUSH Q5M PRN PRN Reason: Excessive sedation or RR < 8 Nystatin (Nystatin Powder 15 Gm Bottle) 1 appl TOPICAL TID [facility]; Protocol Last Admin: 12/20/24 10:37 Dose: Not Given Documented By: NAYAN Non-Admin Reason: Med Not Available Omeprazole (Omeprazole 20 Mg Capsule.) 20 mg PO BID@0630,1630 [facility] Last Admin: 12/20/24 06:48 Dose: 20 mg Documented By: DILCIA Sodium Chloride (0.9 % Sodium Chloride Flush 3 Ml Syringe) 3 ml IVFLUSH QSHIFT [facility] Last Admin: 12/20/24 09:11 Dose: Not Given Documented By: NAYAN Non-Admin Reason: Previously Administered Thiamine HCl (Thiamine Hcl 100 Mg Tablet) 100 mg PO DAILY [facility] Last Admin: 12/20/24 09:00 Dose: 100 mg Documented By: NAYAN Labs 12/19/24 06:27 12/19/24 06:27 Labs: Laboratory Results - last 24 hr 12/20/24 09:39 C. difficile Tox B Gene NEGATIVE Assessment and Plan (1) Paroxysmal atrial fibrillation: Status: Acute (2) Bleeding from nasopharynx: Status: Acute (3) Upper gastrointestinal bleed: Status: Acute (4) SHIRA (acute kidney injury): Status: Acute (5) Acute hypokalemia: Status: Acute (6) Hypomagnesemia: Status: Acute (7) Acute dehydration: Status: Acute (8) 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: Status: Acute (9) Acute UTI: Status: Acute (10) CVA (cerebral vascular accident): Status: Acute (11) Expressive aphasia: Status: Acute (12) Acute bronchitis: Status: Acute (13) Pneumonia: Status: Acute (14) Hypoxia: Status: Acute (15) Hemoptysis: Status: Acute (16) Pleural effusion, left: Status: Acute Plan d12, 84yo M with AF on Eliquis, CVA with expressive aphasia, dysphagia, hx alcohol abuse but sober since August 2024 presenting with hemoptysis and admitted with aspiration PNA hospitalization complicated by unstable wide-complex tachycardia (AF with 2:1 conduction + LBBB) on 12/18 paroxysmal AF/RVR, LBBB - Eliquis had been held due to hemoptysis; resumed 12/18; changed amiodarone infusion to 200 mg PO bid x 1 month 12/20-01/19 then 200 mg PO daily 01/20- - d/c'ed metoprolol succinate due to excessively slow rate - 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 Normal LV ejection fraction of 60 65% with mild LVH with impaired relaxation filling pattern 2. Early mild aortic stenosis noted 3. Mildly dilated ascending aorta 4. No gross pericardial effusion aspiration PNA - completed course of [employer] SECURITY ADVISOR following, plan MBSS today, currently on NDD2 solids/nectar liquids hemoptysis question of hematemesis L pleural effusion, loculated - CT neck soft tissue: lobulated and septated lipoma, right sternocleidomastoid muscle; loculated large volume left-sided pleural effusion; 9 mm gas abnormality in the midline nasopharynx without a discrete mass - in the setting of an aspiration pneumonia, the effusion is likely parapneumonic - Pulm consulted, bronchoscopy done 12/14/24- question of oropharygneal bleeding [esophageal?]. Discussed with Pulm; effusion small and improving, will repeat CXR tomorrow - GI: blood seen on yesterday's bronchoscopy in the oropharyngeal area seems to have been very nonspecific and could very well have been from the nasopharynx or airway, as opposed to the GI tract. Rec: I will hold off on any endoscopic intervention unless definitive GI bleeding occurs. Continue PPI and observe. I would allow diet as tolerated - H+H stable - IV->PO PPI HTN - off metoprolol succinate and amlodipine question of competency - unsafe discharge home, will consult psychiatry for capacity evaluation VTE ppx: apixaban dispo: STR recommended, pt refused In my clinical judgment, the patient requires continued inpatient hospitalization for the following reasons: MBSS, unsafe discharge home Total time managing care of this patient today: 40 minutes. Quality Stroke Does the patient have a stroke diagnosis?: No VTE Prior VTE?: No VTE Risk Level:: Medical - moderate - high VTE Device Contraindication: N/A - Device Ordered VTE Drug Contraindication: Treatment Not Indicated
[2024-12-20 11:21] LABS: E. coli EAEC Not Detected (Not Detect.); E. coli EPEC Not Detected (Not Detect.); E. coli ETEC Not Detected (Not Detect.); E. coli STEC Not Detected (Not Detect.); Shigella sp./EIEC Not Detected (Not Detect.)
--- NOTE | 2024-12-20 13:28 | MHC.CM.PN ---
CALL FROM PATIENT'S HCP, NESSA. NESSA STATES THAT PATIENT WAS TOLD THAT HE WOULD GO HOME TODAY [facility] BASED ON THIS INFORMATION. NESSA ALSO STATES THAT HE DOES NOT UNDERSTAND WHY IT IS SO DIFFICULT TO LEAVE THE HOSPITAL . PLAN OF CARE EXPLAINED. MD BENEDICT
[2024-12-20] MEDS: 0.9 % Sodium Chloride Flush 3 ML SYRINGE IVFLUSH ×2 (16:11→22:21)
--- NOTE | 2024-12-20 16:42 | MHC.SL.SWA ---
Speech Pathologist Impression: Risk of Aspiration Due to: Dysphasia Diet Status: Recommend UPGRADE to CHOPPED/Advanced solids, continue on [place] Thick liquids, pills whole or crushed in puree. Liquid Consistency and Strategies for Safe Swallow: Liquid Intake Recommendation: [place] Thick Liquid Intake Strategies: Small Sips No Straws Solid Food Consistency: Dietary Recommendations: Chopped/Advanced (NDD3) Additional Modifications to Solid Foods: Oral Medication Intake: Crushed with Puree Please contact the pharmacy regarding appropriate crushable or liquid drug formulations that are available whenever modified delivery is recommended. Compensatory Strategies and Precautions to be Taken for Safe Swallow: Sitting Upright (90 deg) No Straw Liquids from Cup Small Bites and Sips Alternate Liquids/Solids Supervision While Eating and Drinking for Safe Swallow: Tray Set Up Foods to Avoid: Swallowing Recommended Treatments: Compens. Strategy Educat. Recommendation for Speech: Inpatient Speech Therapy Speech Therapy through [facility] through Rehab Facility Modified Barium Swallow Study - Inpatient Comment: Patient seen this afternoon to assess for diet upgrade and determine if MBSS study is warranted. Patient was lying in bed, slightly reclined, initially appearing fatigued and unhappy. He agreed to have a snack, however when head of bed adjusted, he cried out in pain. Patient reported he has sores on his lower back and buttocks that are painful with position change. Patient expressed a longing to go home and complained that he was being treated like he was after his stroke with the diet he has been given. Patient was given sips of water by tsp, with patient producing mildly disorganized oral phase, mild delay of swallow, reduced laryngeal elevation palpated. Patient complained of dry mouth, was given a larger tsp and instructed to swish which patient did, however this triggered coughing event on swallow. On later presentation of sip of water from cup after eating a piece of cracker, patient again had coughing event. Patient was given ice cream (to which he said this is fun! ), with timely, but mildly disorganized oral phase, mild delay of swallow, no clinical signs of aspiration. He was given piece of cracker dipped in pudding, on which he produced a rotary chew, mild delay of swallow, no clinical signs of aspiration, mild oral residual, cleared on repeat swallow. Recommend UPGRADE to CHOPPED/Advanced solids, continue on [place] Thick liquids, pills whole or crushed in puree. DEVULCANIZER CHARGER plans to re-assess tomorrow morning to determine readiness for MBSS study. MD advised via secure text. Frequency/Duration: M-F Daily Date Range for Service Req: Timeline to reassess: Welder Plasma Arc Clinican/Clinical Fellow: No Supervisory Statement: I have reviewed and agree with the student/clinical fellow's documentation: N/A Speech Language Pathologist: Jen Urena M.A., CCC-DEVULCANIZER CHARGER
[2024-12-21 03:02] VITALS: BP 142/64; PULSE 62; RESP 18; TEMP 36.4; O2SAT 96
[2024-12-21 08:00] VITALS: BP 151/68; PULSE 67; RESP 20; TEMP 37.2; O2SAT 93
--- NOTE | 2024-12-21 08:40 | MHC.CM.PN ---
CM received a call from Patient's Sister/HCP/Elissa @ [phone]; Patient has given CM permission to speak with Elissa.Elissa wanted to explain that Patient and family are adamant about Patient returning home today and that she and Patient's Friend/Bulmaro will be staying with Patient at time of dc. CM explained about the possibility of a Capacity Eval and stated that the MD will call her to explain the plan of care and any barriers to dc.CM will continue to follow.
[2024-12-21 08:47] VITALS: BP 151/68
[2024-12-21] MEDS: 0.9 % Sodium Chloride Flush 3 ML SYRINGE IVFLUSH (08:53)
[2024-12-21 09:55] VITALS: PULSE 73; PULSE 75; O2SAT 94; O2SAT 95
[2024-12-21 12:00] VITALS: BP 136/64; PULSE 65; RESP 20; O2SAT 93
--- NOTE | 2024-12-21 15:12 | P.F2F_ITS ---
Service Date Service Date: 12/21/24 Encounter Date of encounter: 12/21/24 Reasons for Services Signs and symptoms assessed: speech/swallow attach all PT and MUD ANALYSIS OPERATOR notes please Reason for residential: medication management, medication treatment and teach disease management Reason for physical therapy: home safety and mobility, therapeutic exercises, gait/transfer training, assess need for DME, ADL training and energy conservation Reason for speech therapy: swallowing impairment and speech impairment MD Overseeing Care: Matthias Rogel Homebound: Leaving the home is medically contraindicated at this time without the asist of a device and/or another person due th the listed conditions above and below. Reason homebound: unsteady gait / fall risk and weakness related to hospital stay Certification: Based on the above findings, I certify that this patient is confined to the home and needs intermittent residential care, physical therapy and/or speech therapy, or continues to need occupational therapy. The patient is under my care, and I have initiated the establishment of the plan of care. The patient will be followed by a physician who will periodically review the plan of care. Time Spent With Patient Time: Total time managing care of this patient today ____ minutes.
--- NOTE | 2024-12-21 15:13 | P.DS_ITS ---
DS: Providers Provider Date of Service: 12/21/24 Date of admission: 12/09/24 13:08 Date of discharge: 12/21/24 Primary care physician: Matthias Rogel MD Consults: 12/09/24 13:26 Consult to Gastroenterology Routine Consulting Provider: [facility] Reason for consultation: hempoptysis, hx of ETOH 12/10/24 16:40 Consult to Pulmonology Routine Consulting Provider: [facility] Pul[facility]ology [facility] Reason for consultation: hemoptysis / effusion 12/14/24 17:14 Consult to Gastroenterology Routine Consulting Provider: [facility] G[facility]ology [facility] Reason for consultation: esophageal bleeding -> aspiration/pneumonitis 12/18/24 10:02 Consult to Cardiology Stat Consulting Provider: [facility] Reason for consultation: VTach 12/20/24 09:45 Consult to Wound Care Routine Reason for consultation: buttocks DS: Diagnosis Discharge Diagnosis (1) Paroxysmal atrial fibrillation: Status: Acute (2) Bleeding from nasopharynx: Status: Acute (3) Upper gastrointestinal bleed: Status: Acute (4) SHIRA (acute kidney injury): Status: Acute (5) Acute hypokalemia: Status: Acute (6) Hypomagnesemia: Status: Acute (7) Acute dehydration: Status: Acute (8) 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: Status: Acute (9) Acute UTI: Status: Acute (10) CVA (cerebral vascular accident): Status: Acute (11) Expressive aphasia: Status: Acute (12) Acute bronchitis: Status: Acute (13) Pneumonia: Status: Acute (14) Hypoxia: Status: Acute (15) Hemoptysis: Status: Acute (16) Pleural effusion, left: Status: Acute (17) Dysphagia: Status: Acute (18) Aspiration into airway: Status: Acute (19) Wide-complex tachycardia: Status: Acute (20) LBBB (left bundle branch block): Status: Acute DS: Summary Hospital Course Hospital Course: From the history and physical by the admitting hospitalist, Mary Aguillon NP, 12/09/24: '84-year-old man with a history of atrial fibrillation, stroke, dysphagia presented to the ER with complaints of coughing up blood. Patient reported that he was drinking something and felt a ?pop? in his throat and later had a significant amount of bright red blood out of his mouth. He denied heavy alcohol and reported that he drinks occasionally mostly in the summertime in his last drink was in August. He is on a blood thinner for atrial fibrillation. He did have episodes in the ER also of hemoptysis and was given TXA by EMS. Patient denies any chest pain, shortness breath, nausea, vomiting, diarrhea, sick contacts, recent travel. He is noted to have mildly elevated white blood cell count, hemoglobin hematocrit stable, mildly elevated creatinine from baseline, mild transaminitis. Chest CTA with no evidence of pulmonary embolism, some debris seen within the trachea and left lower lobe bronchus suggesting as piration, abdominal CT showing mild dilation of the crossing duodenum without evidence of obstruction or lesion. In the ER patient received a dose of octreotide, IV Pepcid, TXA, Rocephin, doxycycline. Patient will be admitted for further management and treatment of hemoptysis and aspiration pneumonia.' 84yo M with AF on Eliquis, CVA with expressive aphasia, dysphagia, hx alcohol abuse but sober since August 2024; presenting with hemoptysis and admitted to the telemetry unit with aspiration PNA; hospitalization complicated by unstable wide-complex tachycardia (AF with 2:1 conduction + LBBB) on 12/18. Was being prepared for cardioversion due to hypotension but then converted on his own without shocks. Hospital course by problem: paroxysmal AF/RVR, LBBB - Eliquis had been held due to hemoptysis; resumed 12/18 - treated with amiodarone infusion 12/18-12/19 then changed to 200 mg PO bid x 1 month 12/20-01/19 then 200 mg PO daily 01/20- - d/c'ed metoprolol succinate due to excessively slow rate - follow up with his own collar packer, Dr Rogel, in 2 wk - TTE 12/18/24: 1. Normal LV ejection fraction of 60 65% with mild LVH with impaired relaxation filling pattern 2. Early mild aortic stenosis noted 3. Mildly dilated ascending aorta 4. No gross pericardial effusion aspiration PNA - completed course of Shama, EXCEPTIONAL STUDENT EDUCATION TEACHER following and performed MBSS 12/21/24 showing aspiration on thin and nectar thick consistencies, difficulty chewing solids. Recommended downgrade to GROUND (NDD2) and HONEY THICK liquids, speech therapy indicated at the next level of care. All pills crushed in puree. hemoptysis question of hematemesis L pleural effusion, loculated - CT neck soft tissue: lobulated and septated lipoma, right sternocleidomastoid muscle; loculated large volume left-sided pleural effusion; 9 mm gas abnormality in the midline nasopharynx without a discrete mass - In the setting of an aspiration pneumonia, the effusion is likely parapneumonic. Pulm consulted, bronchoscopy done 12/14/24- question of oropharygneal bleeding [esophageal?] - GI: blood seen on yesterday's bronchoscopy in the oropharyngeal area seems to have been very nonspecific and could very well have been from the nasopharynx or airway, as opposed to the GI tract. Rec: I will hold off on any endoscopic intervention unless definitive GI bleeding occurs. Continue PPI and observe. I would allow diet as tolerated - H+H stable even after resuming Eliquis. - Parapneumonic effusion stable on repeat CXR. Should repeat in 2-3 wk. - Treated with IV->PO PPI, to continue omeprazole 20 mg bid. He was seen by PT multiple times and STR was recommended; however the patient refused. He was deemed to have competency. He was discharged home and will be cared for by his friend and sister, both HCPs. VNA services were arranged for home nursing, home PT, and EXCEPTIONAL STUDENT EDUCATION TEACHER. Time Attestation Discharge Coordination Time (in mins): 60 Quality: Safe Use of Opioids Does Pt have an Active Cancer Diagnosis on the Problem List?: No Quality: Stroke Does the patient have a stroke diagnosis?: No Physical Exam Vital Signs: Vital Signs: Last Vital Signs Temp 98.9 F 12/21/24 08:00 Pulse 65 12/21/24 12:00 Resp 20 12/21/24 12:00 BP 136/64 12/21/24 12:00 Pulse Ox 93 12/21/24 12:00 O2 Del Method Room Air 12/21/24 12:00 O2 Flow Rate 0.5 12/21/24 08:00 FiO2 60 12/14/24 12:54 Oxygen Flow Rate 2 12/18/24 11:58 BMI result Body Mass Index 39.0 Gen: in no acute distress HEENT: sclera anicteric, moist mucus membranes Neck: supple Lungs: diminished L base Heart: regular rate and rhythm, no murmurs Abd: soft, non-tender, non-distended Ext: no edema Skin: warm/well-perfused Neuro: alert, some expressive aphasia Psych: appropriate affect DS: Data Data Completed and Pending Completed studies during hospitalization [Text1]: Laboratory Results WBC 15.9 X10*3/uL (4.8-10.8) H 12/19/24 06:27 RBC 3.55 X10*6/uL (4.60-5.80) L 12/19/24 06:27 Hgb 11.1 g/dl (14.0-18.0) L 12/19/24 06:27 Hct 34.5 % (42.0-52.0) L 12/19/24 06:27 MCV 97.2 fL (80.0-98.0) 12/19/24 06: MCH 31.3 pg (27.0-33.0) 12/19/24 06: MCHC 32.2 g/dl (31.0-36.0) 12/19/24 06:27 RDW 14.0 % (11.0-16.0) 12/19/24 06:27 Plt Count 599 X10*3/uL (160-400) H 12/19/24 06:27 MPV 10.2 fL (9.4-12.4) 12/19/24 06:27 Immature Gran % (Auto) 1.5 % (0.0-0.4) H 12/16/24 04:04 Neut % (Auto) 73.8 % (45-73) H 12/16/24 04:04 Lymph % (Auto) 13.1 % (20-40) L 12/16/24 04:04 Ballard % (Auto) 8.4 % (2-11) 12/16/24 04:04 Eos % (Auto) 2.7 % (0-4) 12/16/24 04:04 Baso % (Auto) 0.5 % (0-2) 12/16/24 04:04 Lymph # (Auto) 2.4 X10*3/uL (1.2-4.9) 12/16/24 04:04 Ballard # (Auto) 1.5 X10*3/uL (0.1-1.2) H 12/16/24 04:04 Eos # (Auto) 0.5 X10*3/uL (0.0-0.4) H 12/16/24 04:04 Baso # (Auto) 0.1 X10*3/uL (0.0-0.2) 12/16/24 04:04 Abs Immat Gran (auto) 0.27 X10*3/uL (0.00-0.03) H 12/16/24 04:04 Absolute Neuts (auto) 13.6 x10*3/uL (2.0-8.3) H 12/16/24 04:04 Absolute Nucleated RBC 0.000 X10*3/uL (0.0-0.012) 12/19/24 06:27 Nucleated RBC % (auto) 0.0 /100WBC (0.0-0.2) 12/19/24 06:27 Smear Tech's Comments VERIFIED 12/16/24 04:04 PT 18.7 SEC (10.9-12.4) H 12/14/24 07:14 INR 1.6 (0.9-1.1) H 12/14/24 07:14 Sodium 145 mmol/L (135-145) 12/19/24 06:27 Potassium 3.7 mmol/L (3.3-5.1) 12/19/24 06:27 Chloride 113 mmol/L (96-108) H 12/19/24 06:27 Carbon Dioxide 26 mmol/L (22-29) 12/19/24 06:27 Anion Gap 10 (12-20) L 12/19/24 06:27 BUN 15 mg/dL (9-16) 12/19/24 06:27 Creatinine 1.39 mg/dL (0.5-1.4) 12/19/24 06:27 Estim Creat Clear Calc 39.9 12/19/24 06:27 Estimated GFR 49 12/19/24 06:27 Random Glucose 98 mg/dL (60-115) 12/19/24 06:27 Lactic Acid 1.7 mmol/L (0.5-2.0) 12/09/24 10:31 Calcium 8.4 mg/dL (8.4-10.2) 12/19/24 06:27 Magnesium 1.7 mg/dL (1.6-2.6) 12/19/24 06:27 Total Bilirubin 0.7 mg/dL (0.0-1.0) 12/09/24 10:01 AST 49 U/L (5-37) H 12/09/24 10:01 ALT 41 U/L (0-40) H 12/09/24 10:01 Alkaline Phosphatase 117 U/L (39-117) 12/09/24 10:01 Troponin I High Sens 23.2 ng/L (<3.5-35.0) 12/16/24 04:04 NT-Pro-B Natriuret Pep 770.2 pg/mL (<300) H 12/09/24 14:56 Total Protein 7.1 g/dL (6.5-8.0) 12/09/24 10:01 Albumin 3.3 g/dL (3.5-5.0) L 12/09/24 10:01 Procalcitonin 0.14 ng/mL 12/19/24 06:27 Urine Color Yellow 12/09/24 14:56 Urine Appearance Clear 12/09/24 14:56 Urine pH 5.5 (5.0-9.0) 12/09/24 14:56 Ur Specific Hanna >= 1.030 (1.005-1.025) H 12/09/24 14:56 Urine Protein 30 (1+) mg/dL (Neg-Trace) H 12/09/24 14:56 Urine Glucose (UA) Negative mg/dL (Negative) 12/09/24 14:56 Urine Ketones Negative mg/dL (Negative) 12/09/24 14:56 Urine Blood Negative (Negative) 12/09/24 14:56 Urine Nitrite Negative (Negative) 12/09/24 14:56 Ur Leukocyte Esterase Negative (Negative) 12/09/24 14:56 Urine RBC 0-2 /HPF (0-2) 12/09/24 14:56 Urine WBC 0-5 /HPF (0-5) 12/09/24 14:56 Ur Squamous Epith Cells 0-2 /HPF (0-2) 12/09/24 14:56 Urine Bacteria None Seen (None Seen) 12/09/24 14:56 Hyaline Casts 0-2 /LPF (0-2) 12/09/24 14:56 Stool Occult Blood NEGATIVE (NEGATIVE) 12/13/24 13:23 Stl C. cayetanensis PCR Not Detected (Not Detect.) 12/20/24 09:39 Stool Rotavirus A PCR Not Detected (Not Detect.) 10 09:39 Stl Adenov F 40/41 PCR Not Detected (Not Detect.) 12/20/24 09:39 Stool Astrovirus (PCR) Not Detected (Not Detect.) 12/20/24 09:39 Stool Campylobacter PCR Not Detected (Not Detect.) 12/20/24 09:39 Stool Cryptosporidium PCR Not Detected (Not Detect.) 12/20/24 09:39 Stl Sh Tox Pr E STEC PCR Not Detected (Not Detect.) 12/20/24 09:39 Stool E coli O157 PCR Not applicable (Not Detect.) 12/20/24 09:39 Stl Enterotoxigenic E PCR Not Detected (Not Detect.) 12/20/24 09:39 Stool EPEC (PCR) Not Detected (Not Detect.) 12/20/24 09:39 Stool EAEC (PCR) Not Detected (Not Detect.) 12/20/24 09:39 Stl E. histolytica PCR Not Detected (Not Detect.) 12/20/24 09:39 Stool Giardia Lamblia PCR Not Detected (Not Detect.) 12/20/24 09:39 Stl P. shigelloides PCR Not Detected (Not Detect.) 12/20/24 09:39 Stool Salmonella PCR Not Detected (Not Detect.) 12/20/24 09:39 Stool Sapovirus (PCR) Not Detected (Not Detect.) 12/20/24 09:39 Stl Shigella/EIEC PCR Not Detected (Not Detect.) 12/20/24 09:39 St Y.enterocolitica PCR Not Detected (Not Detect.) 12/20/24 09:39 Stool Vibrio (PCR) Not Detected (Not Detect.) 12/20/24 09:39 Stl Vibrio cholerae PCR Not Detected (Not Detect.) 12/20/24 09:39 Stl Norovirus GI/GII PCR Not Detected (Not Detect.) 12/20/24 09:39 Urine Ethyl Alcohol SEE NOTE 12/09/24 14:56 C. difficile Tox B Gene NEGATIVE (Negative) 12/20/24 09:39 Blood Type O Positive 12/13/24 12:34 Antibody Screen NEGATIVE 12/13/24 12:34 Crossmatch See Detail 12/09/24 10:03 Impressions Soft Tissue Neck CT 12/10/24 15:02 IMPRESSION: 42 x 28 x 65 mm lobulated thin septated lipoma, right sternocleidomastoid muscle. Malignancy seems this likely. Heterogeneous nodular enlarged right thyroid lobe. Concerning loculated large volume left-sided pleural effusion. 9 mm gas abnormality midline nasopharynx without discrete mass. Multilevel moderate to severe cervical spondylosis. Electronically signed by: Rickey Gray MD 12/10/2024 03:49 PM EDT RP Chest X-Ray 12/20/24 15:10 IMPRESSION: Small to moderate left pleural effusion without change. Underlying atelectasis or pneumonia at the left lung base is not excluded. Electronically signed by: Mychal Keller MD 12/20/2024 03:32 PM EDT RP Pathology 12/14/24 Diagnosis Lung, bilateral, washing: Negative for malignant cells. COMMENT: Review of the cytology preparation demonstrates a moderately cellular specimen composed of reactive bronchial cells and squames and few mixed acute inflammatory cells. The cell block shows similar findings. No evidence of malignancy is seen Discharge Plan Discharge Anticipated Discharge Date/Time: 12/19/24 15:33 Patient Disposition: Home Health Service Discharge Diagnosis: atrial fibrillation with left bundle branch block aspiration pneumonia question of hematemesis and hemoptysis L pleural effusion Referrals: Matthias Rogel MD [Primary Care Provider, Internal Medicine] - 1 Week Discharge Medications: New amiodarone 200 mg Tablet 200 mg PO BID Qty: 60 0RF omeprazole 20 mg Capsule,Delayed Release(Dr/Ec) 20 mg PO BID@0630,1630 Qty: 60 0RF nystatin [Nyamyc] 100,000 unit/gram Powder 1 appl topical TID Qty: 60 0RF Protocol: Apply to: Apply to: groin/perineum Continued thiamine HCl (vitamin B1) 100 mg Tablet 100 mg PO DAILY allopurinol 100 mg Tablet 100 mg PO DAILY doxazosin 2 mg Tablet 6 mg PO BID Eliquis 5 mg Tablet 2.5 mg PO BID triamcinolone acetonide 0.1 % Cream 1 appl TOPICAL DAILY MDD 14 days/month PRN (Reason: Itching) ketoconazole 2 % Shampoo 1 appl TOPICAL 2XW PRN (Reason: Scalp rash) loperamide 2 mg Tablet 2 mg PO DAILY PRN (Reason: Diarrhea) acetaminophen 500 mg Tablet 500 mg PO BEDTIME PRN (Reason: Pain) naproxen sodium 220 mg Tablet 220 mg PO DAILY PRN (Reason: Pain) ketoconazole 2 % Cream 1 appl TOPICAL BID PRN (Reason: Seborrheic Dermatitis) omega-3 fatty acids-fish oil 684-1,200 mg Capsule,Delayed Release(Dr/Ec) 1 cap PO DAILY Discontinued metoprolol succinate [Toprol XL] 25 mg tablet extended release 24 hr 25 mg PO DAILY Qty: 30 0RF amlodipine 5 mg Tablet 5 mg PO DAILY hydrochlorothiazide 12.5 mg Capsule 12.5 mg PO DAILY Discharge Orders: Discharge Order (Routine); Ordered 12/21/24 Ordered By: Raghu Delacruz Diet: Advance to usual diet Activity on Discharge: As tolerated Stand Alone Forms: Patient Portal Discharge page Print Language: Japanese Care Plan Goals: cardiopulmonary health Health Concerns: atrial fibrillation with left bundle branch block aspiration pneumonia question of hematemesis and hemoptysis L pleural effusion Plan of Treatment: home with VNA services including PT and EXCEPTIONAL STUDENT EDUCATION TEACHER amiodarone 200 mg twice daily for a month then 200 mg once daily stop metoprolol succinate stop amlodipine stop hydrochlorothiazide follow up with Dr Rogel [Cardiology] in 2 weeks take omeprazole 20 mg twice daily GROUND [NDD2] solids and HONEY-thick liquids; pills crushed in puree ongoing speech therapy at home please repeat Chest X-ray 2V in 2-3 weeks; ask primary care doctor for order Please follow up with your primary care doctor within 1 week. Return to the hospital if you experience recurrent or worsening symptoms. Assessment: See Discharge Summary.
[2024-12-21 15:15] VITALS: BP 162/70; PULSE 76; RESP 18; TEMP 37.1; O2SAT 93
--- NOTE | 2024-12-21 15:19 | MHC.CM.PN ---
Patient has been medically cleared for dc to home today, with services (CM awaits a VNA acceptance).Patient's Friend/Bulmaro will transport and stay with Patient today and per Sister/HCP/Elissa at listed #, she and her will arrive at Patient's home tomorrow to stay with him.
--- NOTE | 2024-12-21 15:20 | MHC.SL.MBSTD ---
Referring provider: Dr. Delacruz Reason for Referral: Eval for diet consistencies Type of Treatment: 54518 Modified Barium Swallow Study Date of Plan of Treatment: 12/21/24 Onset of Symptoms/Illness: 12/09/24 Date Treatment Started: 12/10/24 Medical Diagnosis: (1) Paroxysmal atrial fibrillation: Status: Acute (2) Bleeding from nasopharynx: Status: Acute (3) Upper gastrointestinal bleed: Status: Acute (4) SHIRA (acute kidney injury): Status: Acute (5) Acute hypokalemia: Status: Acute (6) Hypomagnesemia: Status: Acute (7) Acute dehydration: Status: Acute (8) 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: Status: Acute (9) Acute UTI: Status: Acute (10) CVA (cerebral vascular accident): Status: Acute (11) Expressive aphasia: Status: Acute (12) Acute bronchitis: Status: Acute (13) Pneumonia: Status: Acute (14) Hypoxia: Status: Acute (15) Hemoptysis: Status: Acute (16) Pleural effusion, left: Status: Acute Speech & Language Primary Diagnosis:R13.12 Oropharyngeal Phase Dysphagia Speech & Language Secondary Diagnosis: R47.1 Dysarthria Comments: Patient is admitted for aspiration PNA with history significant for CVA in 2021. Patient reports chronic dysphagia following his stroke. Patient stated that he had g-tube for at least a month and had multiple swallow studies. He says he gradually began eating purees and nectar thick liquids and was discharged from the hospital back home with VNA services. It is unclear how he began eating regular solids and liquids. Patient presents with severe dysarthria, marked by difficulty with frontal sounds. Patient is sent for MBSS to evaluate extent of oropharyngeal dysphagia and to identify safe diet textures before discharge. Assessment Oral Motor Exam: Facial Symmetry: Symmetrical Facial Movement: Controlled Oral-Facial Facial Miscellaneous Observations: Mouth Occlusion: Normal Oral-Facial Teeth Characteristics: Partially Missing Oral-Facial Teeth Miscellaneous Observation: Oral-Facial Lip Pucker Description: Normal Oral-Facial Smile (Lips) Description: Normal Oral-Facial Puff Cheeks Description: Normal Oral-Facial Lip Miscellaneous Comment: Tongue Size: Normal Tongue Frenum Length: Tongue Excursion Description: Normal Tongue Range of Movement Description: Reduced Tongue Speed of Movement Description: Reduced Tongue Strength of Movement (against opposing pressure): Reduced Tongue Movement Characteristics: Normal/Absent Tongue Movement Miscellaneous Observation: ? Is patient able to manage secretions?: Yes ? Is patient able to produce volitional cough?: Yes Clinicial Observations: This exam was conducted by the radiologist and the speech pathologist. Patient was seated upright at 90 degrees in a stretcher. He was able to feed himself when handed food and liquid items. Patient trialed the following consistencies: -Thin liquid (via individual cup sips) -Rockmart thick liquid (via individual cup sips) -Honey thick liquid (via individual cup sips) -Puree (mixture applesauce with barium pudding) -Regular (shortbread cookie coated with barium pudding) Patient displayed poor tongue control, with premature posterior spillage from the oral cavity, with contrast pooling in the valleculae and pyriforms prior to initiation of the pharyngeal swallow trigger. Mastication was very slow and disorganized. Patient swallowed first trial of regular solid after prolonged period of mastication. He attempted second trial, but spit out the bolus partially chewed and reported that it was too hard and dry. Posterior bolus transport was delayed, but with brisk lingual movement. Pharyngeal swallow trigger was also delayed, initiated as the bolus head reached the pyriforms. Post-swallow, there was mild residue coating the posterior tongue and palate, which cleared on secondary swallows. No evidence of nasopharyngeal reflux. Partial laryngeal elevation, with partial epiglottic inversion and incomplete laryngeal vestibular closure. -Thin: There was penetration seen to the vocal folds on each trial consistently, eventually with subglottic aspiration of trace liquid during the swallow. Patient did produce a spontaneous cough, which did not clear contrast from the airway. -Rockmart thick: There was minimal aspiration seen during the swallow with partial clearing after a spontaneous cough. -Honey thick: No evidence of aspiration or penetration. -Puree: There was penetration above the vocal folds which cleared on subsequent swallows. -Regular: No evidence of aspiration or penetration. There was trace pooling in the valleculae and pyriforms on trials of thin and thickened liquid. Increased residuals on solid trials, though still minimal, on the tongue base and posterior pharyngeal wall, as well as in the valleculae and pyriforms. Impressions and Recommendations Summary: MBSS revealed moderate oropharyngeal dysphagia, marked by slow and disorganized oral phase and incomplete laryngeal vestibular closure. There was aspiration seen on thin and nectar thick consistencies, penetration on puree which subsequently cleared. Minimal residue in the oral and pharyngeal cavities mostly cleared with dry swallowing. Recommend DOWNGRADE diet to GROUND/MECH ALTERED (NDD2) solids and HONEY THICK liquids, pills CRUSHED in PUREE. Patient is able to feed himself, but will need supervision at meal time to assist with tray set up and provide cues as needed for the following strategies: -take one bite at a time -chew food well -dry swallow after each bite -alternate bites with sips of liquids -liquids by teaspoon or controlled cup sip -take one sip at a time -avoid the use of straws -dry swallow after each sip Per Dr. Delacruz, patient will be discharged home with VNA services, TRANSPORTATION PLANNING TECHNICIAN recommended to add TRANSPORTATION PLANNING TECHNICIAN services in the home for continued dysphagia treatment. Patient Education Completed: Yes Patient/Caregiver Education: Described Results of Evaluation Patient expressed understanding of evaluation Patient requires further education on strategies Family/Caregivers require further education on strategies Comment: Comments/Barriers to Learning: Clinician - Supplemental, Miscellaneous Communication: It is important to note MBSS objective studies are snapshots in time and Patient function might vary with factors such as time of day or concomitant medical conditions. For this reason, the final treatment plan for this patient should rest with their medical care team. Additional recommendations should be considered with the totality of the Patient in mind. Thank for the opportunity to participate in the care of this patient. If you have any questions about the content of this report, please contact the [facility] at [facility]. Education: Education regarding findings from today's study and plans for therapy were provided to Family/caregiver only through Verbal Instruction Enrollment Consultant Clinican/Clinical Fellow: No Supervisory Statement: N/A Speech Language Pathologist: Olga Lidia Edgar M.A., [facility]-TRANSPORTATION PLANNING TECHNICIAN
== END 2024-12-21 15:40 | disposition home health service (06) | DRG 308 ==
LOC: HO.ED 11:53 → HO.EDOVER 13:13 → HO.IMC 16:09
PROVIDERS: Hospitalist; Internal Medicine; Nurse Practitioner; Admitting Provider Nurse Practitioner Acute Care; Emergency Provider Emergency Medicine; PCP Internal Medicine; Referring Provider Physician Assistant; Visit Provider Family Medicine
PROC: 0BJ08ZZ Inspection of Tracheobronchial Tree, Via Natural or Artificial Opening Endoscopic (ICD-10-PCS; CPT 31622; principal; 2024-12-14 11:30)
DX: I48.0 Paroxysmal atrial fibrillation (principal); J69.0 Pneumonitis due to inhalation of food and vomit; J91.8 Pleural effusion in other conditions classified elsewhere; R04.2 Hemoptysis; K92.0 Hematemesis; I48.92 Unspecified atrial flutter; F10.11 Alcohol abuse, in remission; I44.7 Left bundle-branch block, unspecified; I69.391 Dysphagia following cerebral infarction; D17.9 Benign lipomatous neoplasm, unspecified; I35.0 Nonrheumatic aortic (valve) stenosis; E66.811 Obesity, class 1; Z71.3 Dietary counseling and surveillance; Z68.37 Body mass index [BMI] 37.0-37.9, adult; Z87.891 Personal history of nicotine dependence; Z79.01 Long term (current) use of anticoagulants; Z79.899 Other long term (current) drug therapy
CPT/HCPCS: 36415; 70491; 71045; 71046; 71275; 74177; 74230; 80048; 80053; 80307; 81001; 81003; 82272; 83605; 83735; 83880; 84145; 84484; 85025; 85027; 85610; 86850; 86900; 86901; 87040; 87070; 87205; 87493; 87507; 88112; 88305; 92526; 92610; 92611; 93005; 93306; 94640; 97110; 97162; 97530; 99285; J0165; J0282; J0283; J0616; J0696; J1160; J1271; J1308; J1650; J2003; J2250; J2312; J2354; J2470; J2543; J2704; J3010; J7120; Q9957; Q9967

== ENCOUNTER → 2024-12-09 09:48 | Outpatient (BNV) | payer OTHER, MEDICARE, SELFPAY | PROVIDERS: Admitting Provider Nurse Practitioner Acute Care; Emergency Provider Emergency Medicine; PCP Internal Medicine; Visit Provider Internal Medicine Cardiovascular Disease | DX: I44.0 Atrioventricular block, first degree (principal); I44.7 Left bundle-branch block, unspecified | CPT/HCPCS: 93010 ==

== ENCOUNTER → 2024-12-09 10:16 | Outpatient (BNV) | payer OTHER, MEDICARE, SELFPAY | PROVIDERS: Emergency Provider Emergency Medicine; PCP Internal Medicine; Visit Provider Radiology Diagnostic Radiology | DX: K92.0 Hematemesis (principal); J90 Pleural effusion, not elsewhere classified; I25.10 Atherosclerotic heart disease of native coronary artery without angina pectoris | CPT/HCPCS: 71045; 71275; 74177 ==

== ENCOUNTER 2024-12-09 13:08 | Outpatient (BNV) | payer OTHER, SELFPAY | END 2024-12-17 15:12 | PROVIDERS: Admitting Provider Nurse Practitioner Acute Care; Emergency Provider Emergency Medicine; PCP Internal Medicine; Visit Provider Radiology Diagnostic Radiology | DX: J90 Pleural effusion, not elsewhere classified (principal); R91.8 Other nonspecific abnormal finding of lung field | CPT/HCPCS: 71046 ==

== ENCOUNTER 2024-12-09 13:08 | Outpatient (BNV) | payer OTHER, MEDICARE, SELFPAY | END 2024-12-16 11:00 | PROVIDERS: Admitting Provider Nurse Practitioner Acute Care; Emergency Provider Emergency Medicine; PCP Internal Medicine; Visit Provider Radiology Diagnostic Radiology | DX: R91.8 Other nonspecific abnormal finding of lung field (principal) | CPT/HCPCS: 71045 ==

== ENCOUNTER 2024-12-09 13:08 | Outpatient (BNV) | payer OTHER, SELFPAY | END 2024-12-18 10:03 | PROVIDERS: Admitting Provider Nurse Practitioner Acute Care; Emergency Provider Emergency Medicine; PCP Internal Medicine; Visit Provider Internal Medicine Cardiovascular Disease | DX: I35.0 Nonrheumatic aortic (valve) stenosis (principal); I44.7 Left bundle-branch block, unspecified | CPT/HCPCS: 93010; 93306 ==

== ENCOUNTER 2024-12-09 13:08 | Outpatient (BNV) | payer OTHER, SELFPAY | END 2024-12-21 06:00 | PROVIDERS: Admitting Provider Nurse Practitioner Acute Care; Emergency Provider Emergency Medicine; PCP Internal Medicine; Visit Provider Radiology Diagnostic Radiology | DX: J69.0 Pneumonitis due to inhalation of food and vomit (principal); R04.2 Hemoptysis | CPT/HCPCS: 74230 ==

== ENCOUNTER 2024-12-09 13:08 | Outpatient (BNV) | payer OTHER, MEDICARE, SELFPAY | END 2024-12-10 15:02 | PROVIDERS: Admitting Provider Nurse Practitioner Acute Care; Emergency Provider Emergency Medicine; PCP Internal Medicine; Visit Provider Radiology Diagnostic Radiology | DX: E04.1 Nontoxic single thyroid nodule (principal); M47.812 Spondylosis without myelopathy or radiculopathy, cervical region; D17.9 Benign lipomatous neoplasm, unspecified | CPT/HCPCS: 70491 ==

== ENCOUNTER 2024-12-09 13:08 | Outpatient (BNV) | payer OTHER, MEDICARE, SELFPAY | END 2024-12-13 11:05 | PROVIDERS: Admitting Provider Nurse Practitioner Acute Care; Emergency Provider Emergency Medicine; PCP Internal Medicine; Visit Provider Radiology Diagnostic Radiology | DX: J90 Pleural effusion, not elsewhere classified (principal) | CPT/HCPCS: 71045 ==

== ENCOUNTER 2024-12-09 13:08 | Outpatient (BNV) | payer OTHER, SELFPAY | END 2024-12-20 15:10 | PROVIDERS: Admitting Provider Nurse Practitioner Acute Care; Emergency Provider Emergency Medicine; PCP Internal Medicine; Visit Provider Radiology Diagnostic Radiology | DX: J90 Pleural effusion, not elsewhere classified (principal) | CPT/HCPCS: 71045 ==

== ENCOUNTER 2024-12-09 13:08 | Outpatient (BNV) | payer OTHER, MEDICARE, SELFPAY | END 2024-12-11 13:18 | PROVIDERS: Admitting Provider Nurse Practitioner Acute Care; Emergency Provider Emergency Medicine; PCP Internal Medicine; Visit Provider Radiology Diagnostic Radiology | DX: J90 Pleural effusion, not elsewhere classified (principal) | CPT/HCPCS: 71045 ==

== ENCOUNTER 2024-12-09 13:08 | Outpatient (BNV) | payer OTHER, MEDICARE, SELFPAY | END 2024-12-16 03:17 | PROVIDERS: Admitting Provider Nurse Practitioner Acute Care; Emergency Provider Emergency Medicine; PCP Internal Medicine; Visit Provider Internal Medicine | DX: R00.0 Tachycardia, unspecified (principal); I44.7 Left bundle-branch block, unspecified | CPT/HCPCS: 93010 ==

== ENCOUNTER → 2024-12-09 13:08 | Outpatient (BNV) | payer OTHER, MEDICARE, SELFPAY | PROVIDERS: Admitting Provider Nurse Practitioner Acute Care; Emergency Provider Emergency Medicine; PCP Internal Medicine; Visit Provider Hospitalist | DX: I49.5 Sick sinus syndrome (principal); I48.0 Paroxysmal atrial fibrillation; K92.2 Gastrointestinal hemorrhage, unspecified; N17.9 Acute kidney failure, unspecified; E87.6 Hypokalemia; E83.42 Hypomagnesemia; E86.0 Dehydration; I63.9 Cerebral infarction, unspecified; R47.01 Aphasia; J20.9 Acute bronchitis, unspecified; J18.9 Pneumonia, unspecified organism; R09.02 Hypoxemia; R04.2 Hemoptysis; J90 Pleural effusion, not elsewhere classified | CPT/HCPCS: 99223; 99232; 99358; 99499 ==

== ENCOUNTER → 2024-12-09 13:08 | Outpatient (BNV) | payer OTHER, MEDICARE, SELFPAY | PROVIDERS: Admitting Provider Nurse Practitioner Acute Care; Emergency Provider Emergency Medicine; PCP Internal Medicine; Visit Provider Hospitalist | DX: R04.2 Hemoptysis (principal); J90 Pleural effusion, not elsewhere classified; J18.9 Pneumonia, unspecified organism; R09.02 Hypoxemia | CPT/HCPCS: 99223 ==

== ENCOUNTER → 2024-12-09 13:08 | Outpatient (BNV) | payer OTHER, MEDICARE, SELFPAY | PROVIDERS: Admitting Provider Nurse Practitioner Acute Care; Emergency Provider Emergency Medicine; PCP Internal Medicine; Visit Provider Internal Medicine | DX: J18.9 Pneumonia, unspecified organism (principal); R09.02 Hypoxemia; R04.0 Epistaxis; R04.2 Hemoptysis | CPT/HCPCS: 99222 ==

== ENCOUNTER → 2024-12-09 13:08 | Outpatient (BNV) | payer OTHER, SELFPAY | PROVIDERS: Admitting Provider Nurse Practitioner Acute Care; Emergency Provider Emergency Medicine; PCP Internal Medicine; Visit Provider Internal Medicine Cardiovascular Disease | DX: R00.0 Tachycardia, unspecified (principal) | CPT/HCPCS: 99223 ==